=== PATIENT | female | born 1950 | race Caucasian/White ===

== ENCOUNTER 2017-10-22 12:23 | Day surgery (SDC) | payer MEDICARE, OTHER ==
[~2017-10-22 12:23] MED LIST: ATOR20 PO; Aspir 8181 MG PO; CHOL10002 PO; COD LIVER OIL1 EACH PO; DESO.05TL; FISH OIL 1,0001 EAC1 PO; FURO40 PO; GLUCOSAMINE CH1 EAC3 PO; LIRA0.6P SC; LOSARTAN-HCTZ1 EACH PO; METO50 PO; Metformin HCl1000 MG PO; POTCHL10ER PO; TOUJEO SOL300 UNIT/1 SC; WARF4 PO; WARF5 PO
[2018-02-10] MEDS ORDERED: Augmentin 875-1 EACH PO (14:41)
== END 2017-10-22 13:48 | disposition home or self-care (01) ==
LOC: WOUND 12:23
DX: Z48.00 Encounter for change or removal of nonsurgical wound dressing (principal); L02.215 Cutaneous abscess of perineum; E11.622 Type 2 diabetes mellitus with other skin ulcer; L98.411 Non-pressure chronic ulcer of buttock limited to breakdown of skin; E66.9 Obesity, unspecified
CPT/HCPCS: G0463

== ENCOUNTER 2017-10-29 12:30 | Day surgery (SDC) | payer MEDICARE, OTHER ==
[2018-02-10] MEDS ORDERED: Augmentin 875-1 EACH PO (14:41)
== END 2017-10-29 15:56 | disposition home or self-care (01) ==
LOC: WOUND 12:30
PROC: 0JB90ZZ Excision of Buttock Subcutaneous Tissue and Fascia, Open Approach (ICD-10-PCS; principal; 2017-10-29)
DX: Z48.00 Encounter for change or removal of nonsurgical wound dressing (principal); E11.622 Type 2 diabetes mellitus with other skin ulcer; L02.215 Cutaneous abscess of perineum; E66.9 Obesity, unspecified; L98.412 Non-pressure chronic ulcer of buttock with fat layer exposed
CPT/HCPCS: G0463

== ENCOUNTER 2017-11-05 12:30 | Day surgery (SDC) | payer MEDICARE, OTHER ==
[2018-02-10] MEDS ORDERED: Augmentin 875-1 EACH PO (14:41)
== END 2017-11-05 22:53 | disposition home or self-care (01) ==
LOC: WOUND 12:30
DX: Z48.00 Encounter for change or removal of nonsurgical wound dressing (principal); L02.215 Cutaneous abscess of perineum; E11.622 Type 2 diabetes mellitus with other skin ulcer; E66.9 Obesity, unspecified
CPT/HCPCS: G0463

== ENCOUNTER 2017-11-12 12:30 | Day surgery (SDC) | payer MEDICARE, OTHER ==
[2018-02-10] MEDS ORDERED: Augmentin 875-1 EACH PO (14:41)
== END 2017-11-12 14:21 | disposition home or self-care (01) ==
LOC: WOUND 12:30
DX: Z48.00 Encounter for change or removal of nonsurgical wound dressing (principal); E11.622 Type 2 diabetes mellitus with other skin ulcer; L02.215 Cutaneous abscess of perineum; E66.9 Obesity, unspecified
CPT/HCPCS: G0463

== ENCOUNTER 2017-11-19 09:58 | Day surgery (SDC) | payer MEDICARE, OTHER ==
[2018-02-10] MEDS ORDERED: Augmentin 875-1 EACH PO (14:41)
== END 2017-11-19 23:03 | disposition home or self-care (01) ==
LOC: WOUND 09:58
DX: Z48.00 Encounter for change or removal of nonsurgical wound dressing (principal); E11.622 Type 2 diabetes mellitus with other skin ulcer; L02.215 Cutaneous abscess of perineum
CPT/HCPCS: G0463

== ENCOUNTER 2017-11-26 01:01 | Day surgery (SDC) | payer MEDICARE, OTHER ==
[2018-02-10] MEDS ORDERED: Augmentin 875-1 EACH PO (14:41)
== END 2017-11-26 13:19 | disposition home or self-care (01) ==
LOC: WOUND 01:01
DX: Z48.00 Encounter for change or removal of nonsurgical wound dressing (principal); E11.621 Type 2 diabetes mellitus with foot ulcer; E11.69 Type 2 diabetes mellitus with other specified complication; L02.215 Cutaneous abscess of perineum
CPT/HCPCS: G0463

== ENCOUNTER 2017-12-06 00:37 | Day surgery (SDC) | payer MEDICARE, OTHER | END 2017-12-06 22:00 | disposition home or self-care (01) | LOC: WOUND 00:37 | DX: Z48.00 Encounter for change or removal of nonsurgical wound dressing (principal); E11.622 Type 2 diabetes mellitus with other skin ulcer; L02.215 Cutaneous abscess of perineum | CPT/HCPCS: G0463 ==

== ENCOUNTER 2017-12-10 00:26 | Day surgery (SDC) | payer MEDICARE, OTHER ==
[2018-02-10] MEDS ORDERED: Augmentin 875-1 EACH PO (14:41)
== END 2017-12-10 14:16 | disposition home or self-care (01) ==
LOC: WOUND 00:26
DX: Z48.00 Encounter for change or removal of nonsurgical wound dressing (principal); E11.622 Type 2 diabetes mellitus with other skin ulcer; L02.215 Cutaneous abscess of perineum; E66.9 Obesity, unspecified
CPT/HCPCS: G0463

== ENCOUNTER 2017-12-17 10:59 | Day surgery (SDC) | payer MEDICARE, OTHER ==
[2018-02-10] MEDS ORDERED: Augmentin 875-1 EACH PO (14:41)
== END 2017-12-17 22:53 | disposition home or self-care (01) ==
LOC: WOUND 10:59
DX: L02.215 Cutaneous abscess of perineum (principal); E11.622 Type 2 diabetes mellitus with other skin ulcer; Z79.01 Long term (current) use of anticoagulants; E66.9 Obesity, unspecified
CPT/HCPCS: G0463

== ENCOUNTER 2017-12-24 12:28 | Day surgery (SDC) | payer MEDICARE, OTHER ==
[2018-02-10] MEDS ORDERED: Augmentin 875-1 EACH PO (14:41)
== END 2017-12-24 23:19 | disposition home or self-care (01) ==
LOC: WOUND 12:28
DX: L02.215 Cutaneous abscess of perineum (principal); E11.622 Type 2 diabetes mellitus with other skin ulcer; Z79.4 Long term (current) use of insulin; Z79.01 Long term (current) use of anticoagulants
CPT/HCPCS: G0463

== ENCOUNTER 2017-12-31 12:23 | Day surgery (SDC) | payer MEDICARE, OTHER ==
[2018-02-10] MEDS ORDERED: Augmentin 875-1 EACH PO (14:41)
== END 2017-12-31 13:18 | disposition home or self-care (01) ==
LOC: WOUND 12:23
DX: L02.215 Cutaneous abscess of perineum (principal); E11.622 Type 2 diabetes mellitus with other skin ulcer; Z79.4 Long term (current) use of insulin; Z79.01 Long term (current) use of anticoagulants
CPT/HCPCS: G0463

== ENCOUNTER 2018-01-07 12:30 | Day surgery (SDC) | payer MEDICARE, OTHER ==
[2018-02-10] MEDS ORDERED: Augmentin 875-1 EACH PO (14:41)
== END 2018-01-07 14:48 | disposition home or self-care (01) ==
LOC: WOUND 12:30
DX: Z48.00 Encounter for change or removal of nonsurgical wound dressing (principal); E11.622 Type 2 diabetes mellitus with other skin ulcer; E66.9 Obesity, unspecified; L02.215 Cutaneous abscess of perineum; Z79.4 Long term (current) use of insulin; Z79.01 Long term (current) use of anticoagulants
CPT/HCPCS: G0463

== ENCOUNTER 2018-01-14 12:30 | Day surgery (SDC) | payer MEDICARE, OTHER ==
[2018-02-10] MEDS ORDERED: Augmentin 875-1 EACH PO (14:41)
== END 2018-01-14 22:38 | disposition home or self-care (01) ==
LOC: WOUND 12:30
PROC: 0HB9XZZ Excision of Perineum Skin, External Approach (ICD-10-PCS; principal; 2018-01-14)
DX: Z48.00 Encounter for change or removal of nonsurgical wound dressing (principal); E11.622 Type 2 diabetes mellitus with other skin ulcer; L02.215 Cutaneous abscess of perineum; E66.9 Obesity, unspecified; Z79.01 Long term (current) use of anticoagulants
CPT/HCPCS: G0463

== ENCOUNTER 2018-01-21 12:30 | Day surgery (SDC) | payer MEDICARE, OTHER | END 2018-01-21 15:10 | disposition home or self-care (01) | LOC: WOUND 12:30 | DX: Z48.00 Encounter for change or removal of nonsurgical wound dressing (principal); E11.622 Type 2 diabetes mellitus with other skin ulcer; E11.69 Type 2 diabetes mellitus with other specified complication; L02.215 Cutaneous abscess of perineum; Z79.4 Long term (current) use of insulin | CPT/HCPCS: 87070; 87205; G0463 ==

== ENCOUNTER 2018-01-28 00:33 | Day surgery (SDC) | payer MEDICARE, OTHER | END 2018-01-28 13:13 | disposition home or self-care (01) | LOC: WOUND 00:33 | PROC: 0HB9XZZ Excision of Perineum Skin, External Approach (ICD-10-PCS; principal; 2018-01-28) | DX: L02.215 Cutaneous abscess of perineum (principal); K61.0 Anal abscess; Z79.4 Long term (current) use of insulin; Z79.01 Long term (current) use of anticoagulants; E66.9 Obesity, unspecified; E11.622 Type 2 diabetes mellitus with other skin ulcer | CPT/HCPCS: G0463 ==

== ENCOUNTER 2018-02-04 12:22 | Day surgery (SDC) | payer MEDICARE, OTHER | END 2018-02-04 13:26 | disposition home or self-care (01) | LOC: WOUND 12:22 | DX: L02.215 Cutaneous abscess of perineum (principal); E11.622 Type 2 diabetes mellitus with other skin ulcer | CPT/HCPCS: G0463 ==

== ENCOUNTER → 2018-02-10 | Outpatient (CLI) | payer MEDICARE, OTHER | LOC: LAB 15:06 → LAB SHORT 15:06 | DX: E11.40 Type 2 diabetes mellitus with diabetic neuropathy, unspecified (principal); M86.179 Other acute osteomyelitis, unspecified ankle and foot | CPT/HCPCS: 87070; 87205 ==

== ENCOUNTER 2018-02-11 12:35 | Day surgery (SDC) | payer MEDICARE, OTHER | END 2018-02-11 22:57 | disposition home or self-care (01) | LOC: WOUND 12:35 | PROC: 0H59XZZ Destruction of Perineum Skin, External Approach (ICD-10-PCS; principal; 2018-02-11) | DX: L02.215 Cutaneous abscess of perineum (principal); E11.622 Type 2 diabetes mellitus with other skin ulcer | CPT/HCPCS: G0463 ==

== ENCOUNTER 2018-02-25 00:35 | Day surgery (SDC) | payer MEDICARE, OTHER | END 2018-02-25 22:46 | disposition home or self-care (01) | LOC: WOUND 00:35 | PROC: 0H59XZZ Destruction of Perineum Skin, External Approach (ICD-10-PCS; principal; 2018-02-25) | DX: L02.215 Cutaneous abscess of perineum (principal); E11.622 Type 2 diabetes mellitus with other skin ulcer; Z79.4 Long term (current) use of insulin | CPT/HCPCS: G0463 ==

== ENCOUNTER 2018-03-10 11:31 | Inpatient (IN) | payer MEDICARE, OTHER ==
[~2018-03-10] VITALS: Ht 167.6 cm; Wt 112.0 kg
[~2018-03-10 11:31] MED LIST changes: +Augmentin 875-1 EACH PO
[2018-03-10 13:23] LABS: BASOPHILS ABSOLUTE AUTO 0.03 K/mm3 (0.00-0.23); BASOPHILS PERCENT AUTO 1 % (0-2); EOSINOPHILS ABSOLUTE AUTO 0.16 K/mm3 (0.00-0.68); EOSINOPHILS PERCENT AUTO 3 % (0-6); Hematocrit 32.1 % (33.0-51.0); Hemoglobin 10.1 g/dL (11.5-16.0); IMMATURE GRAN ABSOLUTE AUTO 0.03 K/mm3 (0.00-0.10); IMMATURE GRAN PERCENT AUTO 1 % (0-1); LYMPHOCYTES ABSOLUTE AUTO 0.97 K/mm3 (0.84-5.20); LYMPHOCYTES PERCENT AUTO 15 % (21-46); MONOCYTES ABSOLUTE AUTO 0.62 K/mm3 (0.16-1.47); MONOCYTES PERCENT AUTO 10 % (4-13); Mean Corpuscular HGB 30.4 pg (26.0-34.0); Mean Corpuscular HGB Conc 31.5 g/dL (31.5-36.5); Mean Corpuscular Volume 97 fL (80-100); Mean Platelet Volume 8.8 fL (9.1-12.4); NEUTROPHILS ABSOLUTE AUTO 4.48 K/mm3 (1.96-9.15); NEUTROPHILS PERCENT AUTO 71 % (41-73); Platelet Count 322 K/mm3 (150-400); RDW Coefficient Variation 13.2 % (11.7-14.2); RDW Standard Deviation 46.7 fL (35.1-46.3); Red Blood Cell Count 3.32 M/mm3 (3.80-5.20); White Blood Cell Count 6.29 K/mm3 (4.00-11.30)
[2018-03-10 13:39] LABS: International Normalized Ratio 1.21; Prothrombin Time Results 12.7 Sec (9.7-11.5)
[2018-03-10 13:46] LABS: Alanine Aminotransfer (ALT/SGP 29 U/L (12-78); Albumin/Globulin Ratio 0.7 (0.8-1.8); Alk Phos 111 U/L (50-136); Anion Gap 9 mmol/L (6-16); Aspartate Aminotrans (AST/SGOT 18 U/L (12-37); Bilirubin, Total 0.3 mg/dL (0.1-1.0); Blood Urea Nitrogen 67 mg/dL (8-24); Bun/Creatinine Ratio 76.6 (12.0-20.0); CO2, Blood 21 mmol/L (21-32); Calcium, Blood 9.3 mg/dL (8.5-10.1); Chloride, Blood 107 mmol/L (98-108); Creatinine, Blood 0.88 mg/dL (0.40-1.00); Globulin, Blood 4.5 g/dL (2.2-4.0); Glomerular Filtration Rate >60 (60-); Glucose, Blood 129 mg/dL (70-99); Potassium, Blood 5.2 mmol/L (3.5-5.5); Sodium, Blood 137 mmol/L (136-145); Total Protein, Blood 7.5 g/dL (6.4-8.2)
[2018-03-10] MEDS ORDERED: ACET500ER PO (14:37)
[2018-03-10] MEDS ORDERED: IBUPROFEN200 MG PO (14:39)
[2018-03-10] MEDS ORDERED: DOCU100 PO (14:42)
[2018-03-10] MEDS ORDERED: Hair, Skin & N1 EACH PO (14:49)
[2018-03-10] MEDS ORDERED: ASCO500 PO (14:49)
[2018-03-10] MEDS ORDERED: WARF7.5 PO (14:51)
[2018-03-10] MEDS ORDERED: CETI5 PO (14:52)
[2018-03-10] MEDS ORDERED: Novolog Fl100 UNIT/1 SC ×2 (14:53→14:54)
[2018-03-10] MEDS ORDERED: INSULANPEN SC (14:54)
[2018-03-10] MEDS ORDERED: OXYC5 PO (14:55)
[2018-03-10] MEDS ORDERED: [UNRECOGNIZED DRUG - CODE] PO (16:08)
[2018-03-10] MEDS ORDERED: [UNRECOGNIZED DRUG - CODE] PO (16:09)
[2018-03-11 05:15] LABS: Hematocrit 30.4 % (33.0-51.0); Hemoglobin 9.5 g/dL (11.5-16.0); Mean Corpuscular HGB 29.7 pg (26.0-34.0); Mean Corpuscular HGB Conc 31.3 g/dL (31.5-36.5); Mean Corpuscular Volume 95 fL (80-100); Platelet Count 328 K/mm3 (150-400); RDW Coefficient Variation 13.2 % (11.7-14.2); RDW Standard Deviation 45.3 fL (35.1-46.3); White Blood Cell Count 6.01 K/mm3 (4.00-11.30)
[2018-03-11 05:24] LABS: International Normalized Ratio 1.27; Prothrombin Time Results 13.3 Sec (9.7-11.5)
[2018-03-11 05:33] LABS: Anion Gap 7 mmol/L (6-16); Blood Urea Nitrogen 51 mg/dL (8-24); Bun/Creatinine Ratio 59.8 (12.0-20.0); CO2, Blood 23 mmol/L (21-32); Calcium, Blood 9.2 mg/dL (8.5-10.1); Chloride, Blood 109 mmol/L (98-108); Creatinine, Blood 0.85 mg/dL (0.40-1.00); Glomerular Filtration Rate >60 (60-); Glucose, Blood 116 mg/dL (70-99); Potassium, Blood 4.7 mmol/L (3.5-5.5); Sodium, Blood 139 mmol/L (136-145)
[2018-03-11 17:12] LABS: Vancomycin, Trough 15.4 ug/mL (5.0-10.0)
[2018-03-12 05:16] LABS: BASOPHILS ABSOLUTE AUTO 0.01 K/mm3 (0.00-0.23); BASOPHILS PERCENT AUTO 0 % (0-2); EOSINOPHILS ABSOLUTE AUTO 0.14 K/mm3 (0.00-0.68); EOSINOPHILS PERCENT AUTO 4 % (0-6); Hematocrit 30.4 % (33.0-51.0); Hemoglobin 9.5 g/dL (11.5-16.0); IMMATURE GRAN ABSOLUTE AUTO 0.01 K/mm3 (0.00-0.10); IMMATURE GRAN PERCENT AUTO 0 % (0-1); LYMPHOCYTES ABSOLUTE AUTO 1.04 K/mm3 (0.84-5.20); LYMPHOCYTES PERCENT AUTO 29 % (21-46); MONOCYTES ABSOLUTE AUTO 0.37 K/mm3 (0.16-1.47); MONOCYTES PERCENT AUTO 10 % (4-13); Mean Corpuscular HGB 29.3 pg (26.0-34.0); Mean Corpuscular HGB Conc 31.3 g/dL (31.5-36.5); Mean Corpuscular Volume 94 fL (80-100); NEUTROPHILS ABSOLUTE AUTO 2.01 K/mm3 (1.96-9.15); NEUTROPHILS PERCENT AUTO 56 % (41-73); Platelet Count 305 K/mm3 (150-400); RDW Coefficient Variation 13.1 % (11.7-14.2); RDW Standard Deviation 44.9 fL (35.1-46.3); Red Blood Cell Count 3.24 M/mm3 (3.80-5.20); White Blood Cell Count 3.58 K/mm3 (4.00-11.30)
[2018-03-12 05:31] LABS: Anion Gap 10 mmol/L (6-16); Blood Urea Nitrogen 41 mg/dL (8-24); CO2, Blood 23 mmol/L (21-32); Calcium, Blood 9.1 mg/dL (8.5-10.1); Chloride, Blood 108 mmol/L (98-108); Creatinine, Blood 0.79 mg/dL (0.40-1.00); Glomerular Filtration Rate >60 (60-); Glucose, Blood 98 mg/dL (70-99); Potassium, Blood 4.5 mmol/L (3.5-5.5); Sodium, Blood 141 mmol/L (136-145)
[2018-03-13 04:59] LABS: BASOPHILS ABSOLUTE AUTO 0.02 K/mm3 (0.00-0.23); BASOPHILS PERCENT AUTO 0 % (0-2); EOSINOPHILS ABSOLUTE AUTO 0.13 K/mm3 (0.00-0.68); EOSINOPHILS PERCENT AUTO 3 % (0-6); Hematocrit 29.1 % (33.0-51.0); Hemoglobin 9.2 g/dL (11.5-16.0); IMMATURE GRAN ABSOLUTE AUTO 0.02 K/mm3 (0.00-0.10); IMMATURE GRAN PERCENT AUTO 0 % (0-1); LYMPHOCYTES ABSOLUTE AUTO 1.12 K/mm3 (0.84-5.20); LYMPHOCYTES PERCENT AUTO 22 % (21-46); MONOCYTES PERCENT AUTO 12 % (4-13); Mean Corpuscular HGB Conc 31.6 g/dL (31.5-36.5); Mean Corpuscular Volume 95 fL (80-100); Mean Platelet Volume 8.8 fL (9.1-12.4); NEUTROPHILS ABSOLUTE AUTO 3.13 K/mm3 (1.96-9.15); NEUTROPHILS PERCENT AUTO 62 % (41-73); Platelet Count 287 K/mm3 (150-400); RDW Coefficient Variation 13.1 % (11.7-14.2); RDW Standard Deviation 45.3 fL (35.1-46.3); Red Blood Cell Count 3.07 M/mm3 (3.80-5.20); White Blood Cell Count 5.02 K/mm3 (4.00-11.30)
[2018-03-13 05:22] LABS: Anion Gap 8 mmol/L (6-16); Blood Urea Nitrogen 31 mg/dL (8-24); Bun/Creatinine Ratio 38.8 (12.0-20.0); CO2, Blood 24 mmol/L (21-32); Chloride, Blood 109 mmol/L (98-108); Glomerular Filtration Rate >60 (60-); Glucose, Blood 93 mg/dL (70-99); Potassium, Blood 4.5 mmol/L (3.5-5.5); Sodium, Blood 141 mmol/L (136-145)
[2018-03-16 16:54] LABS: International Normalized Ratio 1.16; Prothrombin Time Results 12.1 Sec (9.7-11.5)
[2018-03-17 05:34] LABS: International Normalized Ratio 1.13; Prothrombin Time Results 11.8 Sec (9.7-11.5)
[2018-03-18 06:26] LABS: BASOPHILS ABSOLUTE AUTO 0.03 K/mm3 (0.00-0.23); BASOPHILS PERCENT AUTO 1 % (0-2); EOSINOPHILS ABSOLUTE AUTO 0.11 K/mm3 (0.00-0.68); EOSINOPHILS PERCENT AUTO 2 % (0-6); Hematocrit 32.5 % (33.0-51.0); Hemoglobin 10.1 g/dL (11.5-16.0); IMMATURE GRAN ABSOLUTE AUTO 0.01 K/mm3 (0.00-0.10); IMMATURE GRAN PERCENT AUTO 0 % (0-1); LYMPHOCYTES ABSOLUTE AUTO 1.13 K/mm3 (0.84-5.20); LYMPHOCYTES PERCENT AUTO 23 % (21-46); MONOCYTES ABSOLUTE AUTO 0.48 K/mm3 (0.16-1.47); MONOCYTES PERCENT AUTO 10 % (4-13); Mean Corpuscular HGB 28.8 pg (26.0-34.0); Mean Corpuscular HGB Conc 31.1 g/dL (31.5-36.5); Mean Corpuscular Volume 93 fL (80-100); Mean Platelet Volume 8.7 fL (9.1-12.4); NEUTROPHILS ABSOLUTE AUTO 3.19 K/mm3 (1.96-9.15); NEUTROPHILS PERCENT AUTO 65 % (41-73); Platelet Count 321 K/mm3 (150-400); RDW Coefficient Variation 12.8 % (11.7-14.2); RDW Standard Deviation 43.2 fL (35.1-46.3); Red Blood Cell Count 3.51 M/mm3 (3.80-5.20); White Blood Cell Count 4.95 K/mm3 (4.00-11.30)
[2018-03-18 06:42] LABS: International Normalized Ratio 1.15
[2018-03-18 06:46] LABS: Alanine Aminotransfer (ALT/SGP 15 U/L (12-78); Albumin, Blood 2.9 g/dL (3.4-5.0); Albumin/Globulin Ratio 0.7 (0.8-1.8); Alk Phos 87 U/L (50-136); Anion Gap 7 mmol/L (6-16); Aspartate Aminotrans (AST/SGOT 10 U/L (12-37); Bilirubin, Total 0.4 mg/dL (0.1-1.0); Blood Urea Nitrogen 39 mg/dL (8-24); Bun/Creatinine Ratio 46.2 (12.0-20.0); CO2, Blood 25 mmol/L (21-32); Calcium, Blood 9.4 mg/dL (8.5-10.1); Chloride, Blood 107 mmol/L (98-108); Creatinine, Blood 0.85 mg/dL (0.40-1.00); Globulin, Blood 4.3 g/dL (2.2-4.0); Glomerular Filtration Rate >60 (60-); Glucose, Blood 88 mg/dL (70-99); Potassium, Blood 4.1 mmol/L (3.5-5.5); Sodium, Blood 139 mmol/L (136-145); Total Protein, Blood 7.2 g/dL (6.4-8.2)
[2018-03-18] MEDS ORDERED: ACET500 PO (14:31)
[2018-03-18] MEDS ORDERED: LOSA50 PO (14:39)
[2018-03-18] MEDS ORDERED: LEVFLO500 PO (14:41)
== END 2018-03-18 18:30 | disposition home or self-care (01) | DRG 616 ==
LOC: ER 11:31 → SURS 11:32 → ER 14:10 → SURS 14:35
PROVIDERS: Emergency Medicine; Family Medicine; Internal Medicine; Podiatrist; Student in an Organized Health Care Education/Training Program
PROC: 0QBP0ZZ Excision of Left Metatarsal, Open Approach (ICD-10-PCS; 2018-03-12)
PROC: 0Y6Q0Z0 Detachment at Left 1st Toe, Complete, Open Approach (ICD-10-PCS; principal; 2018-03-12 15:00)
DX: E11.69 Type 2 diabetes mellitus with other specified complication (principal); L89.893 Pressure ulcer of other site, stage 3; M86.172 Other acute osteomyelitis, left ankle and foot; S92.312A Displaced fracture of first metatarsal bone, left foot, initial encounter for closed fracture; Z79.4 Long term (current) use of insulin; I48.91 Unspecified atrial fibrillation; G47.33 Obstructive sleep apnea (adult) (pediatric); B95.2 Enterococcus as the cause of diseases classified elsewhere; B96.5 Pseudomonas (aeruginosa) (mallei) (pseudomallei) as the cause of diseases classified elsewhere; E11.40 Type 2 diabetes mellitus with diabetic neuropathy, unspecified; I48.2 Chronic atrial fibrillation; E78.5 Hyperlipidemia, unspecified; L97.524 Non-pressure chronic ulcer of other part of left foot with necrosis of bone
CPT/HCPCS: 36415; 73630; 80048; 80053; 80202; 82947; 83605; 85025; 85027; 85610; 85651; 86140; 87040; 87070; 87071; 87075; 87077; 87186; 87205; 88305; 88311; 93005; 93010; 93922; 94660; 94762; 96365; 97116; 97161; 97164; 97530; 99285; G8978; G8979; G8980; J0295; J1650; J1815; J1940; J1956; J2250; J2370; J2405; J2543; J3010; J3370; J7030; J7050; J7120

== ENCOUNTER 2018-03-20 09:15 | Day surgery (SDC) | payer MEDICARE, OTHER ==
[~2018-03-20 09:15] MED LIST changes: +ACET500 PO; +ACET500ER PO; +ASCO500 PO; +CETI5 PO; +DOCU100 PO; +Hair, Skin & N1 EACH PO; +IBUPROFEN200 MG PO; +INSULANPEN SC; +LEVFLO500 PO; +LOSA50 PO; +Novolog Fl100 UNIT/1 SC; +OXYC5 PO; +WARF7.5 PO; +[UNRECOGNIZED DRUG - CODE] PO; +[UNRECOGNIZED DRUG - CODE] PO
== END 2018-03-20 10:27 | disposition home or self-care (01) ==
LOC: WOUND
DX: Z48.00 Encounter for change or removal of nonsurgical wound dressing (principal); L02.215 Cutaneous abscess of perineum; E11.622 Type 2 diabetes mellitus with other skin ulcer; Z79.4 Long term (current) use of insulin
CPT/HCPCS: G0463

== ENCOUNTER 2018-03-26 12:29 | Day surgery (SDC) | payer MEDICARE, OTHER | END 2018-03-26 22:53 | disposition home or self-care (01) | LOC: WOUND 12:29 | DX: Z48.00 Encounter for change or removal of nonsurgical wound dressing (principal); L02.215 Cutaneous abscess of perineum; E11.622 Type 2 diabetes mellitus with other skin ulcer; Z79.4 Long term (current) use of insulin | CPT/HCPCS: G0463 ==

== ENCOUNTER 2018-04-09 00:15 | Day surgery (SDC) | payer MEDICARE, OTHER | END 2018-04-09 23:24 | disposition home or self-care (01) | LOC: WOUND 00:15 | DX: L02.215 Cutaneous abscess of perineum (principal); E11.622 Type 2 diabetes mellitus with other skin ulcer; Z79.4 Long term (current) use of insulin | CPT/HCPCS: G0463 ==

== ENCOUNTER 2018-04-16 11:15 | Day surgery (SDC) | payer MEDICARE, OTHER | END 2018-04-16 12:21 | disposition home or self-care (01) | LOC: WOUND 11:15 | DX: Z48.00 Encounter for change or removal of nonsurgical wound dressing (principal); L02.215 Cutaneous abscess of perineum; E11.622 Type 2 diabetes mellitus with other skin ulcer | CPT/HCPCS: G0463 ==

== ENCOUNTER 2018-04-22 | Day surgery (SDC) | payer MEDICARE, OTHER | END 2018-04-22 16:26 | disposition home or self-care (01) | LOC: WOUND | DX: Z48.01 Encounter for change or removal of surgical wound dressing (principal); L02.215 Cutaneous abscess of perineum; E11.622 Type 2 diabetes mellitus with other skin ulcer; Z79.4 Long term (current) use of insulin | CPT/HCPCS: G0463 ==

== ENCOUNTER 2018-05-02 11:00 | Day surgery (SDC) | payer MEDICARE, OTHER | END 2018-05-02 12:50 | disposition home or self-care (01) | LOC: WOUND 11:00 | DX: E11.622 Type 2 diabetes mellitus with other skin ulcer (principal); L98.492 Non-pressure chronic ulcer of skin of other sites with fat layer exposed; L02.215 Cutaneous abscess of perineum | CPT/HCPCS: G0463 ==

== ENCOUNTER 2018-05-30 00:12 | Day surgery (SDC) | payer MEDICARE, OTHER | END 2018-05-30 11:45 | disposition home or self-care (01) | LOC: ATC 00:12 | DX: L02.215 Cutaneous abscess of perineum (principal); E11.622 Type 2 diabetes mellitus with other skin ulcer; Z79.4 Long term (current) use of insulin | CPT/HCPCS: 99211 ==

== ENCOUNTER 2019-07-07 18:23 | Observation (INO) | payer MEDICARE, OTHER ==
[~2019-07-07] VITALS: Ht 167.6 cm; Wt 117.0 kg
[~2019-07-07 18:23] MED LIST changes: -CHOL10002 PO; -COD LIVER OIL1 EACH PO; +Cod Liver Oil1 EAC2 PO; -Hair, Skin & N1 EACH PO; +NOVOLOG FL100 UNIT/1 SC; +THERA1 EACH PO; +VITAMIN D31000 UNI2 PO
[2019-07-07 19:45] LABS: Source, Urine Clean Catch
[2019-07-07 19:55] LABS: BASOPHILS ABSOLUTE AUTO 0.02 K/mm3 (0.00-0.23); BASOPHILS PERCENT AUTO 0 % (0-2); EOSINOPHILS ABSOLUTE AUTO 0.11 K/mm3 (0.00-0.68); EOSINOPHILS PERCENT AUTO 2 % (0-6); Hematocrit 40.6 % (33.0-51.0); Hemoglobin 12.9 g/dL (11.5-16.0); IMMATURE GRAN ABSOLUTE AUTO 0.02 K/mm3 (0.00-0.10); IMMATURE GRAN PERCENT AUTO 0 % (0-1); LYMPHOCYTES ABSOLUTE AUTO 0.94 K/mm3 (0.84-5.20); LYMPHOCYTES PERCENT AUTO 15 % (21-46); MONOCYTES ABSOLUTE AUTO 0.53 K/mm3 (0.16-1.47); MONOCYTES PERCENT AUTO 8 % (4-13); Mean Corpuscular HGB Conc 31.8 g/dL (31.5-36.5); Mean Corpuscular Volume 101 fL (80-100); Mean Platelet Volume 9.7 fL (9.1-12.4); NEUTROPHILS PERCENT AUTO 75 % (41-73); Platelet Count 230 K/mm3 (150-400); RDW Coefficient Variation 12.8 % (11.7-14.2); Red Blood Cell Count 4.03 M/mm3 (3.80-5.20); White Blood Cell Count 6.42 K/mm3 (4.00-11.30)
[2019-07-07 20:01] LABS: Bilirubin, Urine Neg (Neg); Blood, Urine 2+ (Neg); Glucose Qualitative, Urine Neg (Neg); Ketones, Urine Neg (Neg); Leukocyte Esterase, Urine Neg (Neg); Nitrite, Urine Neg (Neg); Protein, Urine 3+ (Neg); Urobilinogen, Urine NORM (Normal)
[2019-07-07 20:11] LABS: International Normalized Ratio 3.35; Prothrombin Time Results 31.8 Sec (9.7-11.5)
[2019-07-07 20:15] LABS: Appearance, Urine Clear (Clear); Color, Urine Yellow (P-Yellow)
[2019-07-07 20:16] LABS: Bacteria Not Seen /hpf; Squamous Epithelial Cells Not Seen /hpf (Few); White Blood Cells, Urine Not Seen /hpf (0-5)
[2019-07-07 20:39] LABS: Alanine Aminotransfer (ALT/SGP 33 U/L (12-78); Albumin, Blood 3.7 g/dL (3.4-5.0); Alk Phos 99 U/L (50-136); Anion Gap 3 mmol/L (6-16); Aspartate Aminotrans (AST/SGOT 32 U/L (12-37); Bilirubin, Total 0.5 mg/dL (0.1-1.0); Blood Urea Nitrogen 64 mg/dL (8-24); Bun/Creatinine Ratio 79.1 (12.0-20.0); CO2, Blood 25 mmol/L (21-32); Calcium, Blood 9.9 mg/dL (8.5-10.1); Chloride, Blood 107 mmol/L (98-108); Creatinine, Blood 0.81 mg/dL (0.40-1.00); Globulin, Blood 3.7 g/dL (2.2-4.0); Glomerular Filtration Rate >60 (60-); Glucose, Blood 131 mg/dL (70-99); Potassium, Blood 4.7 mmol/L (3.5-5.5); Sodium, Blood 135 mmol/L (136-145); Total Protein, Blood 7.4 g/dL (6.4-8.2); Troponin I 0.083 ng/mL (0.000-0.040)
[2019-07-07] MEDS ORDERED: TRULICITY0.75 MG/0. SC (21:10)
[2019-07-07] MEDS ORDERED: Secura Protecti50 GM TOP (21:11)
[2019-07-07] MEDS ORDERED: A AND D OINTM42.5 GM TOP (21:11)
[2019-07-07] MEDS ORDERED: Triamcinolone A15 G3 TOP (21:12)
[2019-07-07] MEDS ORDERED: Florastor250 MG PO (21:12)
[2019-07-08 02:03] LABS: BASOPHILS ABSOLUTE AUTO 0.02 K/mm3 (0.00-0.23); BASOPHILS PERCENT AUTO 0 % (0-2); EOSINOPHILS ABSOLUTE AUTO 0.11 K/mm3 (0.00-0.68); EOSINOPHILS PERCENT AUTO 2 % (0-6); Hematocrit 37.7 % (33.0-51.0); Hemoglobin 12.3 g/dL (11.5-16.0); IMMATURE GRAN ABSOLUTE AUTO 0.02 K/mm3 (0.00-0.10); IMMATURE GRAN PERCENT AUTO 0 % (0-1); LYMPHOCYTES ABSOLUTE AUTO 1.43 K/mm3 (0.84-5.20); LYMPHOCYTES PERCENT AUTO 21 % (21-46); MONOCYTES ABSOLUTE AUTO 0.62 K/mm3 (0.16-1.47); MONOCYTES PERCENT AUTO 9 % (4-13); Mean Corpuscular HGB 32.4 pg (26.0-34.0); Mean Corpuscular HGB Conc 32.6 g/dL (31.5-36.5); Mean Corpuscular Volume 99 fL (80-100); Mean Platelet Volume 9.4 fL (9.1-12.4); NEUTROPHILS ABSOLUTE AUTO 4.49 K/mm3 (1.96-9.15); NEUTROPHILS PERCENT AUTO 67 % (41-73); Platelet Count 230 K/mm3 (150-400); RDW Coefficient Variation 12.8 % (11.7-14.2); RDW Standard Deviation 46.5 fL (35.1-46.3); White Blood Cell Count 6.69 K/mm3 (4.00-11.30)
[2019-07-08 02:17] LABS: International Normalized Ratio 2.74
[2019-07-08 02:22] LABS: Anion Gap 6 mmol/L (6-16); Blood Urea Nitrogen 53 mg/dL (8-24); Bun/Creatinine Ratio 75.8 (12.0-20.0); CO2, Blood 26 mmol/L (21-32); Calcium, Blood 9.4 mg/dL (8.5-10.1); Chloride, Blood 108 mmol/L (98-108); Glomerular Filtration Rate >60 (60-); Glucose, Blood 114 mg/dL (70-99); Potassium, Blood 4.2 mmol/L (3.5-5.5); Sodium, Blood 140 mmol/L (136-145)
[2019-07-08 02:28] LABS: Prothrombin Time Results 26.5 Sec (9.7-11.5)
--- NOTE | 2019-07-08 03:16 | NUR ---
tROPONIN UP FROM .08 ON ADMISSION TO .26 NOW . dR LUND NOTIFIED AND NO FURTHER ORDER RECIeved. Troponin aleady ordered for 0800 in am. Bp was 191/102. Pt was given her pm meds and blood pressure at 0200 166/72.
--- NOTE | 2019-07-08 04:12 | NUR ---
Shift summary: Pt admitted at midnight last pm. Admission completed. No s/s cva noted. Pt able to ambulate to BR with walker with minimal assist. Pt states she is back to her baseline. Pt on telemetry- AFIB in the 50's. Troponin elevated 0.26 . MD notified and no further orders given. Bp 191/102 on admission but she had not had her pm blood pressure meds. PM medications given. BP two hours later was 166/72
--- NOTE | 2019-07-08 11:06 | NUR ---
Echocadiogram completed.
[2019-07-08] MEDS ORDERED: METO50 PO (12:59)
--- NOTE | 2019-07-08 15:49 | NUR ---
1529 Patient discharged home in vehicle accompanied and driven by . Pt escorted to entrance by volunteer. IV removed. D/C paperwork reviewed with patient and copy provided. New RX faxed to [facility] per pt request. Pt's neuro status WNL for entire shift.
== END 2019-07-08 15:29 | disposition home or self-care (01) ==
LOC: ER 18:23 → MEDS 18:24 → ER 07-08 00:03 → MEDS 07-08 00:03
PROVIDERS: Emergency Medicine; Nurse Practitioner Acute Care; ADMIT Hospitalist
DX: G45.9 Transient cerebral ischemic attack, unspecified (principal); I63.9 Cerebral infarction, unspecified; E66.01 Morbid (severe) obesity due to excess calories; I48.2 Chronic atrial fibrillation; E11.40 Type 2 diabetes mellitus with diabetic neuropathy, unspecified; I11.0 Hypertensive heart disease with heart failure; I50.32 Chronic diastolic (congestive) heart failure; E78.5 Hyperlipidemia, unspecified; G47.33 Obstructive sleep apnea (adult) (pediatric); Z99.89 Dependence on other enabling machines and devices; Z79.4 Long term (current) use of insulin; Z79.82 Long term (current) use of aspirin; Z79.899 Other long term (current) drug therapy; Z79.01 Long term (current) use of anticoagulants; Z88.8 Allergy status to other drugs, medicaments and biological substances
CPT/HCPCS: 36415; 70450; 70496; 70498; 71046; 80048; 80053; 81001; 82947; 84484; 85025; 85610; 92610; 93005; 93010; 93306; 94660; 94762; 97161; 97165; 97530; 97535; 99285-25; G0378; Q9967

== ENCOUNTER 2020-12-03 21:39 | Inpatient (IN) | payer MEDICARE, OTHER ==
[~2020-12-03] VITALS: Ht 167.6 cm; Wt 118.4 kg
[~2020-12-03 21:39] MED LIST changes: +A AND D OINTM42.5 GM TOP; +AMLO5 PO; +BASAGLAR K100 UNIT/1 SC; +CLOP75 PO; +FERSU300 PO; -FISH OIL 1,0001 EAC1 PO; +Florastor250 MG PO; -LOSA50 PO; +LOSARTAN POTAS100 M1 PO; +MULVITA PO; -NOVOLOG FL100 UNIT/1 SC; +NOVOLOG FL100 UNIT/3 SC; +OMEGA-3 FISH O1 EAC6 PO; +OMEP20ER PO; +POTA20LUD PO; -POTCHL10ER PO; +Secura Protecti50 GM TOP; -THERA1 EACH PO; +TRULICITY0.75 MG/0. SC; +Triamcinolone A15 G3 TOP; +VITAMIN D31000 UNI1 PO; -VITAMIN D31000 UNI2 PO
[2020-12-03 22:11] LABS: BASOPHILS ABSOLUTE AUTO 0.03 K/mm3 (0.00-0.23); BASOPHILS PERCENT AUTO 1 % (0-2); EOSINOPHILS ABSOLUTE AUTO 0.07 K/mm3 (0.00-0.68); EOSINOPHILS PERCENT AUTO 1 % (0-6); Hematocrit 34.6 % (33.0-51.0); IMMATURE GRAN ABSOLUTE AUTO 0.02 K/mm3 (0.00-0.10); IMMATURE GRAN PERCENT AUTO 0 % (0-1); LYMPHOCYTES ABSOLUTE AUTO 0.53 K/mm3 (0.84-5.20); LYMPHOCYTES PERCENT AUTO 10 % (21-46); MONOCYTES ABSOLUTE AUTO 0.55 K/mm3 (0.16-1.47); MONOCYTES PERCENT AUTO 11 % (4-13); Mean Corpuscular HGB 28.6 pg (26.0-34.0); Mean Corpuscular HGB Conc 28.9 g/dL (31.5-36.5); Mean Corpuscular Volume 99 fL (80-100); Mean Platelet Volume 9.5 fL (9.1-12.4); NEUTROPHILS ABSOLUTE AUTO 3.99 K/mm3 (1.96-9.15); NEUTROPHILS PERCENT AUTO 77 % (41-73); Platelet Count 262 K/mm3 (150-400); RDW Coefficient Variation 17.5 % (11.7-14.2); RDW Standard Deviation 63.3 fL (35.1-46.3); White Blood Cell Count 5.19 K/mm3 (4.00-11.30)
[2020-12-03 22:25] LABS: Alanine Aminotransfer (ALT/SGP 40 U/L (12-78); Albumin, Blood 3.5 g/dL (3.4-5.0); Albumin/Globulin Ratio 0.9 (0.8-1.8); Alk Phos 113 U/L (50-136); Anion Gap 7 mmol/L (6-16); Aspartate Aminotrans (AST/SGOT 38 U/L (12-37); Bilirubin, Total 0.7 mg/dL (0.1-1.0); Blood Urea Nitrogen 33 mg/dL (8-24); Bun/Creatinine Ratio 39.1 (12.0-20.0); CO2, Blood 21 mmol/L (21-32); Calcium, Blood 8.9 mg/dL (8.5-10.1); Chloride, Blood 113 mmol/L (98-108); Creatinine, Blood 0.85 mg/dL (0.40-1.00); Globulin, Blood 3.8 g/dL (2.2-4.0); Glomerular Filtration Rate >60 (60-); Glucose, Blood 201 mg/dL (70-99); Potassium, Blood 4.8 mmol/L (3.5-5.5); Sodium, Blood 141 mmol/L (136-145); Total Protein, Blood 7.3 g/dL (6.4-8.2); Troponin I <0.015 ng/mL (0.000-0.040)
[2020-12-04 00:39] LABS: Influenza A, PCR NEGATIVE (NEGATIVE); Influenza B, PCR NEGATIVE (NEGATIVE); Resp Syncytial Virus, PCR NEGATIVE (NEGATIVE)
[2020-12-04 01:00] LABS: SARS-Cov-2 (COVID-19) PCR, MMC POSITIVE (NEGATIVE)
[2020-12-04 02:29] LABS: International Normalized Ratio 1.79; Prothrombin Time Results 18.5 Sec (9.7-11.5)
[2020-12-04 04:10] LABS: Hematocrit 32.9 % (33.0-51.0); Hemoglobin 9.6 g/dL (11.5-16.0); Mean Corpuscular HGB 28.8 pg (26.0-34.0); Mean Corpuscular HGB Conc 29.2 g/dL (31.5-36.5); Mean Corpuscular Volume 99 fL (80-100); Mean Platelet Volume 9.2 fL (9.1-12.4); Platelet Count 222 K/mm3 (150-400); RDW Coefficient Variation 17.2 % (11.7-14.2); RDW Standard Deviation 62.7 fL (35.1-46.3); Red Blood Cell Count 3.33 M/mm3 (3.80-5.20); White Blood Cell Count 3.41 K/mm3 (4.00-11.30)
[2020-12-04 04:30] LABS: Alanine Aminotransfer (ALT/SGP 37 U/L (12-78); Albumin, Blood 3.3 g/dL (3.4-5.0); Albumin/Globulin Ratio 0.9 (0.8-1.8); Alk Phos 108 U/L (50-136); Anion Gap 10 mmol/L (6-16); Aspartate Aminotrans (AST/SGOT 28 U/L (12-37); Bilirubin, Total 0.7 mg/dL (0.1-1.0); Blood Urea Nitrogen 34 mg/dL (8-24); Bun/Creatinine Ratio 36.1 (12.0-20.0); CO2, Blood 20 mmol/L (21-32); Chloride, Blood 113 mmol/L (98-108); Creatinine, Blood 0.94 mg/dL (0.40-1.00); Globulin, Blood 3.7 g/dL (2.2-4.0); Glomerular Filtration Rate >60 (60-); Glucose, Blood 228 mg/dL (70-99); Potassium, Blood 4.4 mmol/L (3.5-5.5); Sodium, Blood 143 mmol/L (136-145)
[2020-12-04 04:49] LABS: BASOPHILS ABSOLUTE MAN 0.06 K/mm3 (0.00-0.23); BASOPHILS PERCENT MAN 2 % (0-2); EOSINOPHILS PERCENT MAN 0 % (0-6); LYMPHOCYTES ABSOLUTE MAN 0.23 K/mm3 (0.84-5.20); LYMPHOCYTES PERCENT MAN 7 % (21-46); MONOCYTES PERCENT MAN 0 % (4-13); SEG NEUTROPHILS PERCENT MAN 91 % (41-73); TOTAL CELLS COUNTED 100
--- NOTE | 2020-12-04 08:20 | NUR ---
PT ARRIVED TO ICU 5 FROM ER PCU STATUSE. A/O X4, DENIES PAIN AND N/V. ABLE TO TRANSFER SELF TO BED WITHOUT DYSPNEA. TITRATED O2 FROM 4L TO 2L. PT STATES PRIOR TO COMING TO HOSPITAL SHE WAS HAVING DIFFICULTY BREATHING BUT NOW IS BETTER. PT WAS UNAWARE OF ANY EXPOSURES TO COVID. PT STATES SHE HAS HAD CATARACT SURGERY AND GETS INJECTIONS IN R EYE. R SCLERA IS BLOOD SHOT. NO SIGN OF DISTRESS.
[2020-12-04] MEDS ORDERED: Colace100 MG PO (09:44)
[2020-12-04] MEDS ORDERED: ERYT.5TO LEFTEYE (09:50)
[2020-12-04] MEDS ORDERED: SYSTANE COMPLET10 ML BOTHEYES (09:51)
--- NOTE | 2020-12-04 18:24 | NUR ---
SUMMARY PT HAD UNEVENTFUL DAY AFTER ARRIVING TO ICU. TITRATED O2 DOWN TO 1L NC. DENIES SOB AND PAIN. TOLERATING MEALS. WAS DOWNGRADED TO MEDICAL STATUS PRETTY QUICKLY. HAS BEEN GETTING OOB TO USE BSC WITH 1 PERSON MINIMAL ASSIST. NO SIGN OF DISTRESS. CALL LIGHT IN REACH.
--- NOTE | 2020-12-04 22:35 | NUR ---
SHIFT ASSESSMENT ASSUMED CARE OF PT @ 191, REPORT RECV'D FROM SHERYL JOHNS. PT ALERT AND ORIENTED. SITTING UP IN BED TEXTING ON HER PHONE. NO COMPLAINTS AT THIS TIME, STATED SHE FEELS BETTER THAN YESTERDAY. PT ABLE TO GET UP TO BEDSIDE COMMODE WITH ONE PERSON ASSIST FOR CORD MANAGEMENT. DISTRIBUTION SPECIALIST SHOWS A-FIB WHICH IS NORMAL FOR PT. CURRENTLY ON 1LPM O2 VIA NC c 02 SATS >90%. NO OTHER COMPLAINTS OR NEEDS FROM PT, CALL LIGHT WITHIN REACH. WILL CONTINUE TO MONITOR.
--- NOTE | 2020-12-04 23:13 | NUR ---
PT HAS HOME CPAP ORDER, CPAP DISCUSSED WITH PATIENT, PT STATES SHE FEELS LIKE SHE WILL BE OKAY WITH JUST A NASAL CANULA. DR SHAH NOTIFIED AND OKAYED.
[2020-12-05 02:36] LABS: International Normalized Ratio 1.82; Prothrombin Time Results 18.8 Sec (9.7-11.5)
--- NOTE | 2020-12-05 05:58 | NUR ---
SHIFT SUMMARY PT ABLE TO SLEEP T/O THE NIGHT. NO COMPLAINTS OR CHANGES IN CONDITION. O2 SATS CONTINUE TO BE ABOVE 90% ON 1-2LPM O2 VIA NC. VSS. PT ABLE TO TRANSFER FROM BED TO BEDSIDE COMMODE WITH MINIMAL ASSISTANCE. WILL CONTINUE TO MONITOR, REPORT TO ONCOMING NURSE.
--- NOTE | 2020-12-05 08:45 | NUR ---
ASSUMED CARE RECEIVED REPORT FROM SHERYL BOOTHE. PT HAD TRANSPORTED TO THE CHAIR, SHE IS AWAKE, ALERT, AND ORIENTED X 4 (SELF, SURROUNDINGS, SITUATION, TIME). ON 2L NC, THAT WAS TURNED DOWN TO 1L AT 0815, AND THEN WAS TAKEN OFF JUST NOW AT 0845 -- HER SPO2 IS 98-100% ON OXYGEN, AND 96%+ ON ROOM AIR. PT DENIES SOB AT REST, AND ONLY MILD SOB WITH EXERTION. SHE HAS AN OCCASSIONAL DRY COUGH, NONPRODUCTIVE. PT REPOSITIONS SELF IN BED, AND CAN MOVE FAIRLY INDEPENDENTLY - SOMETIMES NEEDS ASSISTANCE MANAGING CHORDS. SHE IS EATING BREAKFAST IN THE CHAIR CURRENTLY. CALL LIGHT WITHIN REACH. PT C/O FATIGUE.
--- NOTE | 2020-12-05 12:00 | NUR ---
UPDATE NO MAJOR CHANGES SINCE PREVIOUS NOTE. CONTINUES TO BE ON ROOM AIR, SPO2 95%+. DR. MUÑOZ AT BEDSIDE, DISCUSSING POTENTIAL DISCHARGE. WANTS THE REMDESIVIR TO BE GIVEN EARLIER THAN 2100. PT HAS STABLE VITALS, BP IMPROVED AFTER TAKING MORNING BP MEDS. REMAINS IN CHAIR, EATING LUNCH. CALL LIGHT WITHIN REACH.
--- NOTE | 2020-12-05 12:16 | NUR ---
UPDATE PT HAD A SOMEWHAT DARK BROWN, AND SOME BLACK IN HER BM EARLIER. NOT VERY TARRY, THOUGH. PT HAS MENTIONED TO ME THAT SHE HAS A GI ULCER AND THAT SHE HAD AN ISSUE WITH ANEMIA - R/T TO A SMALL BLEED FROM HER ULCER IN THE PAST. SHE ALSO STATES THAT WHEN SHE DID HAVE THE BLEED, AND RESULTANT ANEMIA, HER STOOL WAS WAS VERY BLACK AND TARRY AND THAT HER STOOL TODAY WAS NOT LOOKING LIKE IT HAD. DR. MUÑOZ AWARE.
--- NOTE | 2020-12-05 12:25 | NUR ---
MEDITECH BEING DOWN MOST OF THE CHARTING WAS BACK TIMED DUE TO MEDITECH BEING DOWN. EMARs WERE PRRINTED OUT TO ENSURE THE ACCURACY OF MEDICATION ADMINISTRATION.
[2020-12-05] MEDS ORDERED: DEXA2 PO (15:02)
[2020-12-05] MEDS ORDERED: SPIR25 PO (15:02)
--- NOTE | 2020-12-05 16:32 | NUR ---
ADMIT: 12/04/20 DISCHARGE: 12/05/20 DX: Shortness of breath CC: [email or web address] ADMIT: 10/17/20 DISCHARGE: 10/22/20 DX: HYPERTENSIVE EMERG/ENCY/ ADMIT: 03/11/18 DISCHARGE: 03/18/18 U[facility] CALL: Pt at home and follow up within 2 weeks RESIDENCE: HOME WITH CAREGIVER: SELF, NORM DX: CAD, HTN, DM, Afib, see list DME: INR home monitor, CPAP machine, DM shoes, DM supplies CCM: none HOME HEALTH: [facility]- 2018 SUMMARY: Admit: 12/04/20 12/05/20- per Dr. Bangura, pt is able to be back on room air and able to d/c home with home health. Pt to follow up with [facility] clinic within 2 weeks. -shania
--- NOTE | 2020-12-05 16:32 | NUR ---
DISCHARGE PT OUT OF ICU AT 1620; FULLY AWAKE, ALERT, AND ORIENTED X 4. DENIES PAIN, SOB AND ANY DISCOMFORT. PT RECEIVED DISCHARGE INSTRUCTIONS: COUMADIN, NEW MEDICATIONS: ALDACTONE AND DECADRON, BP AND BLOOD SUGAR MONITORING AT HOME, SIGNS AND SYMPTOMS TO BE ON THE LOOKOUT FOR, SOCIAL DISTANCING, EFM WILL FOLLOW UP WITH HER, ETC... MEDICATIONS CALLED IN TO PHARMACY AT [facility] AT [phone]. SPOUSE HERE WITH VEHICLE TO INFORMATION TECHNOLOGY AUDIT MANAGER THE PT.
== END 2020-12-05 16:25 | disposition home or self-care (01) | DRG 177 ==
LOC: ER 21:39 → EDBEDREQ 12-04 02:59 → ERHOLD 12-04 03:00 → ICUE 12-04 03:00
PROVIDERS: Emergency Medicine; ADMIT Internal Medicine
PROC: 8E0ZXY6 Isolation (ICD-10-PCS; 2020-12-03)
PROC: XW033E5 Introduction of Remdesivir Anti-infective into Peripheral Vein, Percutaneous Approach, New Technology Group 5 (ICD-10-PCS; principal; 2020-12-04)
DX: U07.1 COVID-19 (principal); J12.82 Pneumonia due to coronavirus disease 2019; J96.01 Acute respiratory failure with hypoxia; I50.33 Acute on chronic diastolic (congestive) heart failure; I48.20 Chronic atrial fibrillation, unspecified; J44.0 Chronic obstructive pulmonary disease with (acute) lower respiratory infection; Z68.42 Body mass index [BMI] 45.0-49.9, adult; I07.1 Rheumatic tricuspid insufficiency; I11.0 Hypertensive heart disease with heart failure; E11.40 Type 2 diabetes mellitus with diabetic neuropathy, unspecified; E78.5 Hyperlipidemia, unspecified; G47.33 Obstructive sleep apnea (adult) (pediatric); D64.9 Anemia, unspecified; E66.9 Obesity, unspecified; Z79.4 Long term (current) use of insulin; Z79.02 Long term (current) use of antithrombotics/antiplatelets; Z79.01 Long term (current) use of anticoagulants
CPT/HCPCS: 0241U; 36415; 71045; 80048; 80053; 82947; 83880; 84484; 85025; 85610; 87040; 93005; 93010; 96365; 96375; 99285-25; A9270; J1100; J1650; J1940; J7050

== ENCOUNTER 2020-12-06 01:06 | Day surgery (SDC) | payer MEDICARE, OTHER ==
[~2020-12-06 01:06] MED LIST changes: +Colace100 MG PO; +DEXA2 PO; +ERYT.5TO LEFTEYE; +SPIR25 PO; +SYSTANE COMPLET10 ML BOTHEYES
== END 2020-12-06 17:45 | disposition home or self-care (01) ==
LOC: ATC 01:06
DX: U07.1 COVID-19 (principal); J12.82 Pneumonia due to coronavirus disease 2019; J44.0 Chronic obstructive pulmonary disease with (acute) lower respiratory infection; J96.01 Acute respiratory failure with hypoxia; I11.0 Hypertensive heart disease with heart failure; I50.33 Acute on chronic diastolic (congestive) heart failure; I48.20 Chronic atrial fibrillation, unspecified; E11.40 Type 2 diabetes mellitus with diabetic neuropathy, unspecified; I07.1 Rheumatic tricuspid insufficiency; E78.5 Hyperlipidemia, unspecified; G47.33 Obstructive sleep apnea (adult) (pediatric); D64.9 Anemia, unspecified; E66.9 Obesity, unspecified; Z79.4 Long term (current) use of insulin; Z79.02 Long term (current) use of antithrombotics/antiplatelets; Z79.01 Long term (current) use of anticoagulants; Z68.42 Body mass index [BMI] 45.0-49.9, adult
CPT/HCPCS: 96365

== ENCOUNTER 2020-12-07 00:21 | Day surgery (SDC) | payer MEDICARE, OTHER ==
--- NOTE | 2020-12-07 17:13 | NUR ---
IV ATTEMPTED X3, UNSUCCESSFUL. PT TOLERATED WELL.
== END 2020-12-07 18:15 | disposition home or self-care (01) ==
LOC: ATC 00:21
DX: U07.1 COVID-19 (principal); J12.82 Pneumonia due to coronavirus disease 2019; J96.01 Acute respiratory failure with hypoxia; I16.0 Hypertensive urgency; I11.0 Hypertensive heart disease with heart failure; I50.33 Acute on chronic diastolic (congestive) heart failure; I07.1 Rheumatic tricuspid insufficiency; I48.91 Unspecified atrial fibrillation; G47.30 Sleep apnea, unspecified; E78.5 Hyperlipidemia, unspecified; E11.40 Type 2 diabetes mellitus with diabetic neuropathy, unspecified; Z79.4 Long term (current) use of insulin; Z79.01 Long term (current) use of anticoagulants; Z79.02 Long term (current) use of antithrombotics/antiplatelets; Z89.429 Acquired absence of other toe(s), unspecified side; Z90.711 Acquired absence of uterus with remaining cervical stump; Z88.2 Allergy status to sulfonamides; Z88.8 Allergy status to other drugs, medicaments and biological substances
CPT/HCPCS: 96365

== ENCOUNTER 2020-12-19 01:48 | Inpatient (IN) | payer MEDICARE, OTHER ==
[~2020-12-19] VITALS: Ht 167.6 cm; Wt 116.0 kg
[2020-12-19 02:19] LABS: BASOPHILS ABSOLUTE AUTO 0.01 K/mm3 (0.00-0.23); BASOPHILS PERCENT AUTO 0 % (0-2); EOSINOPHILS ABSOLUTE AUTO 0.02 K/mm3 (0.00-0.68); EOSINOPHILS PERCENT AUTO 0 % (0-6); Hematocrit 32.7 % (33.0-51.0); Hemoglobin 10.4 g/dL (11.5-16.0); IMMATURE GRAN ABSOLUTE AUTO 0.08 K/mm3 (0.00-0.10); IMMATURE GRAN PERCENT AUTO 1 % (0-1); LYMPHOCYTES ABSOLUTE AUTO 0.23 K/mm3 (0.84-5.20); LYMPHOCYTES PERCENT AUTO 2 % (21-46); MONOCYTES ABSOLUTE AUTO 0.38 K/mm3 (0.16-1.47); MONOCYTES PERCENT AUTO 3 % (4-13); Mean Corpuscular HGB Conc 31.8 g/dL (31.5-36.5); Mean Corpuscular Volume 91 fL (80-100); NEUTROPHILS ABSOLUTE AUTO 11.38 K/mm3 (1.96-9.15); NEUTROPHILS PERCENT AUTO 94 % (41-73); Platelet Count 213 K/mm3 (150-400); RDW Coefficient Variation 15.9 % (11.7-14.2); RDW Standard Deviation 52.9 fL (35.1-46.3); Red Blood Cell Count 3.59 M/mm3 (3.80-5.20)
[2020-12-19 02:26] LABS: PCO2 Arterial 35.3 mmHg (35-45); PO2 Arterial 65.4 mmHg (80-100)
[2020-12-19 03:11] LABS: Alanine Aminotransfer (ALT/SGP 30 U/L (12-78); Albumin, Blood 2.1 g/dL (3.4-5.0); Albumin/Globulin Ratio 0.5 (0.8-1.8); Alk Phos 96 U/L (50-136); Anion Gap 8 mmol/L (6-16); Aspartate Aminotrans (AST/SGOT 31 U/L (12-37); Bilirubin, Total 0.5 mg/dL (0.1-1.0); Blood Urea Nitrogen 37 mg/dL (8-24); Bun/Creatinine Ratio 41.2 (12.0-20.0); CO2, Blood 22 mmol/L (21-32); Calcium, Blood 8.2 mg/dL (8.5-10.1); Chloride, Blood 105 mmol/L (98-108); Glomerular Filtration Rate >60 (60-); Glucose, Blood 330 mg/dL (70-99); Potassium, Blood 4.4 mmol/L (3.5-5.5); Sodium, Blood 135 mmol/L (136-145); Total Protein, Blood 6.1 g/dL (6.4-8.2)
[2020-12-19 03:15] LABS: Troponin I 0.631 ng/mL (0.000-0.040)
[2020-12-19 05:01] LABS: Influenza A, PCR NEGATIVE (NEGATIVE); Influenza B, PCR NEGATIVE (NEGATIVE); Resp Syncytial Virus, PCR NEGATIVE (NEGATIVE)
[2020-12-19 05:48] LABS: SARS-Cov-2 (COVID-19) PCR, MMC POSITIVE (NEGATIVE)
--- NOTE | 2020-12-19 10:34 | NUR ---
echocardiogram completed
[2020-12-19] MEDS ORDERED: METFORMIN HCL500 M3 PO (11:46)
[2020-12-19] MEDS ORDERED: POTA20LUD PO (11:49)
--- NOTE | 2020-12-19 15:37 | NUR ---
ADMIT:12/19/20 DISCHARGE: DX:Acute Respiratory failure with hypoxia CC: [email or web address] ADMIT: 12/04/20 DISCHARGE: 12/05/20 DX: SHORTNESS OF BREATH CC: KWILCOX ADMIT: 10/17/20 DISCHARGE: 10/22/20 DX: HYPERTENSIVE EMERG/ENCY/ ADMIT: 03/11/18 DISCHARGE: 03/18/18 URSULA CALL: PT AT HOME RESIDENCE: HOME WITH CAREGIVER: SELF, NORM DX: Afib, CAD, HTN, COVID-19, DM, see list DME: INR HOME MONITOR, CPAP MACHINE, DM SHOES, DM SUPPLIES CCM: NONE HOME HEALTH: [facility]- 2017 SUMMARY: Admit: 12/19/20 12/19/20- per chart review with Dr. Davis, pt has positive COVID and will need a couple days in the hospital for observation/care. Pt is currently waiting in ER for bed in hospital. Pt currently on 4L of )2. There are concerns that she could possible be reinfected with COVID, [id number] CHF and/or bacterial pneumonia. They will hold off on starting steroids due to underlying CHF and start remdesivir again. -shania
--- NOTE | 2020-12-19 18:39 | NUR ---
SHIFT SUMMARY PT ALERT AND ORIENTED. VS STABLE. O2 SATS REMAIN ABOVE 90% ON 4L OXYMIXER. PT REPORTS BREATHING HAS IMPROVED SINCE ADMISSION. HR AFIB WITH A RATE IN THE 80'S. PT DENIES ANY PAIN. PT ABLE TO AMBULATE TO BATHROOM WITH SBA. PT CALLS APPROPRIATELY. WILL CONTINUE TO MONITOR AND REPORT TO ONCOMING.
[2020-12-19 18:42] LABS: International Normalized Ratio 1.7; Prothrombin Time Results 17.7 Sec (9.7-11.5)
--- NOTE | 2020-12-19 20:46 | NUR ---
UPDATE NURSE PRACTIONER FRANDY PEREZ NOTIFIED OF PATIENT'S BLOOD SUGAR OF [phone]. ORDER RECEIVED.
[2020-12-20 02:27] LABS: BASOPHILS PERCENT AUTO 0 % (0-2); EOSINOPHILS PERCENT AUTO 0 % (0-6); Hematocrit 30.1 % (33.0-51.0); Hemoglobin 9.4 g/dL (11.5-16.0); IMMATURE GRAN ABSOLUTE AUTO 0.02 K/mm3 (0.00-0.10); IMMATURE GRAN PERCENT AUTO 0 % (0-1); LYMPHOCYTES ABSOLUTE AUTO 0.54 K/mm3 (0.84-5.20); LYMPHOCYTES PERCENT AUTO 8 % (21-46); MONOCYTES ABSOLUTE AUTO 0.27 K/mm3 (0.16-1.47); MONOCYTES PERCENT AUTO 4 % (4-13); Mean Corpuscular HGB 28.1 pg (26.0-34.0); Mean Corpuscular HGB Conc 31.2 g/dL (31.5-36.5); Mean Corpuscular Volume 90 fL (80-100); Mean Platelet Volume 9.9 fL (9.1-12.4); NEUTROPHILS ABSOLUTE AUTO 6.16 K/mm3 (1.96-9.15); NEUTROPHILS PERCENT AUTO 88 % (41-73); Platelet Count 204 K/mm3 (150-400); RDW Coefficient Variation 15.2 % (11.7-14.2); RDW Standard Deviation 49.8 fL (35.1-46.3); Red Blood Cell Count 3.35 M/mm3 (3.80-5.20); White Blood Cell Count 6.99 K/mm3 (4.00-11.30)
[2020-12-20 02:58] LABS: Albumin, Blood 1.9 g/dL (3.4-5.0); Albumin/Globulin Ratio 0.5 (0.8-1.8); Bilirubin, Total 0.3 mg/dL (0.1-1.0); Bun/Creatinine Ratio 39.6 (12.0-20.0); Calcium, Blood 8.4 mg/dL (8.5-10.1); Creatinine, Blood 1.11 mg/dL (0.40-1.00); Potassium, Blood 4.6 mmol/L (3.5-5.5); Total Protein, Blood 5.9 g/dL (6.4-8.2)
[2020-12-20 02:59] LABS: Troponin I 3.81 ng/mL (0.000-0.040)
--- NOTE | 2020-12-20 06:50 | NUR ---
SHIFT SUMMARY PATIENT PLEASENT AND COOPERATIVE THROUGHOUT THE NIGHT. PATIENT APPEARED TO SLEEP WELL THROUGHOUT MOST OF THE NIGHT WITH NO COMPLAINTS OF PAIN OR DISCOMFORT. PATIENT USED HER CPAP THROUGHOUT THE NIGHT AND WAS ON 4L VIA OXYMIZER WHEN OFF CPAP. PATIENT CURRENTLY RESTING IN BED WATCHING TV, VERY CHEEFUL AND PLEASENT THIS MORNING. WILL CONTINUE CURRENT PLAN OF CARE AND WILL REPORT TO ONCOMING RN.
--- NOTE | 2020-12-20 14:56 | NUR ---
12/20/20- pt was on CPAP during the night. Per chart review with Dr. Davis, pt could potentially discharged on . to COVID unit at [facility]. She is currently on 3-4L of O2. -shania
--- NOTE | 2020-12-20 18:19 | NUR ---
SHIFT SUMMARY NO ACUTE EVENTS THIS SHIFT, VSS. PATIENT ALERT AND ORIENTED, COOPERATIVE WITH CARE. PATIENT IS ABLE TO AMBULATE IN ROOM INDEPENDENTLY TO BEDSIDE COMMODE. PATIENT STARTED SHIFT ON 4 L VIA NASAL CANNULA, TITRATED DOWN TO 1 L WITH O2 SATS MAINTAINED IN LOW 90S, PATIENT TOLERATING WELL. PATIENT SET TIMER ON PERSONAL PHONE AND USED INCENTIVE SPIROMETER MULTIPLE TIMES AN HOUR THROUGH THIS DAY SHIFT, PATIENT IS HIGHLY MOTIVATED TO MAKE PROGRESS TOWARD HOME. HEPARIN GTT CONTINUED PER PHARMACY MANAGEMENT.
[2020-12-21 01:24] LABS: BASOPHILS ABSOLUTE AUTO 0.01 K/mm3 (0.00-0.23); BASOPHILS PERCENT AUTO 0 % (0-2); EOSINOPHILS ABSOLUTE AUTO 0.04 K/mm3 (0.00-0.68); EOSINOPHILS PERCENT AUTO 1 % (0-6); Hemoglobin 9.5 g/dL (11.5-16.0); IMMATURE GRAN ABSOLUTE AUTO 0.04 K/mm3 (0.00-0.10); IMMATURE GRAN PERCENT AUTO 1 % (0-1); LYMPHOCYTES PERCENT AUTO 10 % (21-46); MONOCYTES PERCENT AUTO 4 % (4-13); Mean Corpuscular HGB 28.3 pg (26.0-34.0); Mean Corpuscular HGB Conc 31.7 g/dL (31.5-36.5); Mean Corpuscular Volume 89 fL (80-100); Mean Platelet Volume 9.3 fL (9.1-12.4); NEUTROPHILS ABSOLUTE AUTO 6.82 K/mm3 (1.96-9.15); NEUTROPHILS PERCENT AUTO 85 % (41-73); Platelet Count 211 K/mm3 (150-400); RDW Coefficient Variation 15.3 % (11.7-14.2); RDW Standard Deviation 50.8 fL (35.1-46.3); Red Blood Cell Count 3.36 M/mm3 (3.80-5.20); White Blood Cell Count 8.01 K/mm3 (4.00-11.30)
[2020-12-21 01:40] LABS: Anion Gap 8 mmol/L (6-16); Blood Urea Nitrogen 52 mg/dL (8-24); Bun/Creatinine Ratio 39.7 (12.0-20.0); CHOL/HDL RATIO 3.5; CO2, Blood 23 mmol/L (21-32); Calcium, Blood 8.8 mg/dL (8.5-10.1); Chloride, Blood 106 mmol/L (98-108); Cholesterol 99 mg/dL (50-200); Creatinine, Blood 1.31 mg/dL (0.40-1.00); Glomerular Filtration Rate 43 (60-); Glucose, Blood 305 mg/dL (70-99); HDL Cholesterol 28 mg/dL (>39); LDL/HDL RATIO 1.1; Low Density Lipoprotein Chol 30 mg/dL (0-110); Potassium, Blood 4.4 mmol/L (3.5-5.5); Sodium, Blood 137 mmol/L (136-145); Triglycerides 203 mg/dL (30-160); Very Low Density Lipoprot Chol 40 mg/dL (6-32)
[2020-12-21 01:43] LABS: International Normalized Ratio 1.76; Prothrombin Time Results 18.2 Sec (9.7-11.5)
--- NOTE | 2020-12-21 05:57 | NUR ---
SHIFT SUMMARY NO ACUTE CHANGES THIS SHIFT. VSS. REMAINS AXO/PLEASANT/INDEPENDENT EXCEPT FOR MANAGING LINES. REMAINS IN SR/AFIB DEPENDING ON THE TIME OF SHIFT / 70;'S HR. PT ON 3LNC OR CPAP WITH SPO2 >94%. LUNG SOUNDS MOIST. PT ENCOURAGED TO COMPLETE FLUTTER VALVE/IS BY THIS RN AND RT. PT REMAINS UNDER FLUID RESTRICTION PARAMETERS OF 2L. OTHERWISE, PT USING CALL LIGHT APROPRIATELY. REMAINS IN ISOLATION. WILL CONTINUE TO MONITOR UNTIL SHIFT CHANGE.
--- NOTE | 2020-12-21 18:49 | NUR ---
SHIFT SUMMARY NO ACUTE EVENTS THIS SHIFT, VSS. PATIENT ON ROOM AIR, O2 SATS MAINTAINED IN 90S THROUGHOUT SHIFT. PATIENT ALERT AND ORIENTED, COOPERATIVE WITH CARE. STANDBY ASSIST TO BATHROOM FOR LINE MANAGEMENT. HEPARIN GTT CONTINUED AND WARFARIN GIVEN THIS SHIFT PER PHARMACY MANAGEMENT. PATIENT DENIED SHORTNESS OF BREATH THIS SHIFT. IV ABX CONTINUED, REMDESIVIR COMPLETED.
--- NOTE | 2020-12-22 05:22 | NUR ---
SHIFT SUMMARY NO ACUTE CHANGES THIS SHIFT. VSS. PT REMAINS AXO, IN AFIB WITH CONTROLLED RATE. PT HAS EITHER BEEN ON CPAP WHILE SLEEPING OR RA WHILE AWAKE WITH SPO2 >94%. REMAINS CONTIENET. LUNG SOUNDS HAVE CLEARED SIGNIFICANTLY FROM PREV NOC SHIFT. PT STATES FEELING "MUCH BETTER". HEPARIN CONTINUES TO INFUSE. POWERGLIDE REMAINS PATENT AND DRAWS BLOOD. PT REMAINS IN ISOLATION. WILL CONTINUE TO MONITOR UNTIL SHIFT CHANGE.
[2020-12-22 06:51] LABS: BASOPHILS ABSOLUTE AUTO 0.01 K/mm3 (0.00-0.23); BASOPHILS PERCENT AUTO 0 % (0-2); EOSINOPHILS PERCENT AUTO 2 % (0-6); Hematocrit 29.8 % (33.0-51.0); Hemoglobin 9.3 g/dL (11.5-16.0); IMMATURE GRAN ABSOLUTE AUTO 0.03 K/mm3 (0.00-0.10); IMMATURE GRAN PERCENT AUTO 1 % (0-1); LYMPHOCYTES ABSOLUTE AUTO 1.06 K/mm3 (0.84-5.20); LYMPHOCYTES PERCENT AUTO 17 % (21-46); MONOCYTES ABSOLUTE AUTO 0.35 K/mm3 (0.16-1.47); MONOCYTES PERCENT AUTO 6 % (4-13); Mean Corpuscular HGB 28.3 pg (26.0-34.0); Mean Corpuscular HGB Conc 31.2 g/dL (31.5-36.5); Mean Corpuscular Volume 91 fL (80-100); Mean Platelet Volume 9.7 fL (9.1-12.4); NEUTROPHILS ABSOLUTE AUTO 4.53 K/mm3 (1.96-9.15); NEUTROPHILS PERCENT AUTO 75 % (41-73); Platelet Count 214 K/mm3 (150-400); RDW Coefficient Variation 15.3 % (11.7-14.2); RDW Standard Deviation 51.1 fL (35.1-46.3); Red Blood Cell Count 3.29 M/mm3 (3.80-5.20); White Blood Cell Count 6.08 K/mm3 (4.00-11.30)
[2020-12-22 06:57] LABS: Bun/Creatinine Ratio 38.9 (12.0-20.0); Calcium, Blood 8.9 mg/dL (8.5-10.1); Creatinine, Blood 1.31 mg/dL (0.40-1.00); Potassium, Blood 4.7 mmol/L (3.5-5.5)
[2020-12-22 06:59] LABS: International Normalized Ratio 2.31; Prothrombin Time Results 23.6 Sec (9.7-11.5)
--- NOTE | 2020-12-22 12:40 | NUR ---
12/22/20- PER CHART REVIEW WITH DR. JOEL, PT HAS COMPLETED THE APPROPRIATE TIME FOR QUARANTINE FOR COVID. PT IS STABLE TO DISCHARGE HOME. HE WOULD LIKE TO HAVE HER FOLLOW UP IN 1 WEEK. ATTEMPTED TO SEE PT BUT SHE IS IN ISOLATION DUE TO COVID. ATTEMPTED TO CALL PT IN HER ROOM BUT THERE WAS NO ANSWER. ATTEMPTED TO REACH PT THROUGH HER CELL PHONE BUT NO ANSWER ALSO. -JENNIFER
[2020-12-22] MEDS ORDERED: DOXA1 PO (13:40)
--- NOTE | 2020-12-22 15:26 | NUR ---
PATIENT ALERT AND ORIENTED, ON ROOM AIR, DENIES PAIN/DISCOMFORT THIS SHIFT, O2 SATS STABLE IN 90S. PATIENT PROVIDED DISCHARGE INFO REGARDING FOLLOW UP PLANS, REASONS TO RETURN TO THE HOSPITAL, AND MEDICATION INFORMATION. THIS RN PROVIDED EDUCATION ON IMPORTANT OF USING INCENTIVE SPIROMETER AND FLUTTER VALVE AT HOME, AND USE OF CPAP AT NIGHT. PATIENT PROVIDED INFO REGARDING SELF-ISOLATION FOR COVID-19. PATIENT VERBALIZED UNDERSTANDING, NO SIGNS OF ACUTE DISTRESS, LEFT VIA WHEELCHAIR TO PERSONAL VEHICLE WITH FAMILY PROVIDING RIDE.
== END 2020-12-22 15:24 | disposition home health service (06) | DRG 177 ==
LOC: ER 01:48 → ERHOLD 05:58 → PCU 05:58
PROVIDERS: Emergency Medicine; Internal Medicine; Internal Medicine Cardiovascular Disease; ADMIT Internal Medicine
PROC: 8E0ZXY6 Isolation (ICD-10-PCS; principal; 2020-12-19)
PROC: 3E0333Z Introduction of Anti-inflammatory into Peripheral Vein, Percutaneous Approach (ICD-10-PCS; 2020-12-19)
PROC: XW033E5 Introduction of Remdesivir Anti-infective into Peripheral Vein, Percutaneous Approach, New Technology Group 5 (ICD-10-PCS; 2020-12-19)
DX: U07.1 COVID-19 (principal); I21.4 Non-ST elevation (NSTEMI) myocardial infarction; J96.01 Acute respiratory failure with hypoxia; J12.82 Pneumonia due to coronavirus disease 2019; I50.33 Acute on chronic diastolic (congestive) heart failure; I48.21 Permanent atrial fibrillation; Z68.41 Body mass index [BMI] 40.0-44.9, adult; I11.0 Hypertensive heart disease with heart failure; E78.5 Hyperlipidemia, unspecified; J44.9 Chronic obstructive pulmonary disease, unspecified; Z88.2 Allergy status to sulfonamides; Z88.8 Allergy status to other drugs, medicaments and biological substances; Z90.710 Acquired absence of both cervix and uterus; Z98.890 Other specified postprocedural states; I25.2 Old myocardial infarction; I25.10 Atherosclerotic heart disease of native coronary artery without angina pectoris; E66.01 Morbid (severe) obesity due to excess calories; G47.33 Obstructive sleep apnea (adult) (pediatric); Z79.02 Long term (current) use of antithrombotics/antiplatelets; Z79.4 Long term (current) use of insulin; Z79.899 Other long term (current) drug therapy; I27.20 Pulmonary hypertension, unspecified; Z79.01 Long term (current) use of anticoagulants; N18.30 Chronic kidney disease, stage 3 unspecified; D64.9 Anemia, unspecified; Z89.412 Acquired absence of left great toe; E11.8 Type 2 diabetes mellitus with unspecified complications
CPT/HCPCS: 0241U; 36415; 36600; 51703; 71260; 80048; 80053; 80061; 82803; 82947; 83605; 83880; 84145; 84484; 85025; 85610; 85730; 87040; 93005; 93010; 93306; 94660; 94667; 94762; 96365; 96367; 96375; 99285-25; A9270; J0456; J0696; J1100; J1644; J1650; J1940; J7050; Q9967

== ENCOUNTER 2021-02-24 10:16 | Day surgery (SDC) | payer MEDICARE, OTHER ==
[~2021-02-24] VITALS: Ht 170.2 cm; Wt 112.1 kg
[~2021-02-24 10:16] MED LIST changes: +DOXA1 PO; +METFORMIN HCL500 M3 PO
--- NOTE | 2021-02-24 12:06 | NUR ---
02/24/21 Silvana6 Yin Martinez SIMETHICONE USED DURING PROCEDURE.
== END 2021-02-24 12:45 | disposition home or self-care (01) ==
LOC: ORSCSDS 10:16
PROVIDERS: Internal Medicine Gastroenterology
PROC: 0DBK8ZX Excision of Ascending Colon, Via Natural or Artificial Opening Endoscopic, Diagnostic (ICD-10-PCS; principal; 2021-02-24 11:15)
PROC: 0DBL8ZX Excision of Transverse Colon, Via Natural or Artificial Opening Endoscopic, Diagnostic (ICD-10-PCS; principal; 2021-02-24 11:15)
PROC: 0DBM8ZX Excision of Descending Colon, Via Natural or Artificial Opening Endoscopic, Diagnostic (ICD-10-PCS; principal; 2021-02-24 11:15)
PROC: 0DBN8ZX Excision of Sigmoid Colon, Via Natural or Artificial Opening Endoscopic, Diagnostic (ICD-10-PCS; principal; 2021-02-24 11:15)
PROC: 0DB98ZX Excision of Duodenum, Via Natural or Artificial Opening Endoscopic, Diagnostic (ICD-10-PCS; principal; 2021-02-24 11:15)
PROC: 0DBA8ZX Excision of Jejunum, Via Natural or Artificial Opening Endoscopic, Diagnostic (ICD-10-PCS; principal; 2021-02-24 11:15)
PROC: 0DB78ZX Excision of Stomach, Pylorus, Via Natural or Artificial Opening Endoscopic, Diagnostic (ICD-10-PCS; principal; 2021-02-24 11:15)
DX: D50.0 Iron deficiency anemia secondary to blood loss (chronic) (principal); Z86.010 Personal history of colon polyps; D12.2 Benign neoplasm of ascending colon; D12.3 Benign neoplasm of transverse colon; K63.5 Polyp of colon; K64.8 Other hemorrhoids; I10 Essential (primary) hypertension; I25.10 Atherosclerotic heart disease of native coronary artery without angina pectoris; I25.2 Old myocardial infarction; N18.9 Chronic kidney disease, unspecified; E11.9 Type 2 diabetes mellitus without complications; E66.01 Morbid (severe) obesity due to excess calories; Z68.38 Body mass index [BMI] 38.0-38.9, adult; Z79.84 Long term (current) use of oral hypoglycemic drugs; Z79.01 Long term (current) use of anticoagulants; Z79.899 Other long term (current) drug therapy
CPT/HCPCS: 82947; 88305; 88342; A9270; J2370; J2704; J3010; J7120

== ENCOUNTER 2021-03-24 10:01 | Day surgery (SDC) | payer MEDICARE, OTHER ==
[2021-03-23 17:40] LABS: IMMATURE RETIC FRACTION 28.3 % (2.3-16.0); RETIC HGB EQUIVALENT 22.1 pg (28.20-36.60); RETICULOCYTE ABSOLUTE 0.1234 M/mm3 (0.0200-0.1100); RETICULOCYTE COUNT PERCENT 5.51 % (0.50-2.50)
[2021-03-23 17:42] LABS: BASOPHILS ABSOLUTE AUTO 0.01 K/mm3 (0.00-0.23); BASOPHILS PERCENT AUTO 0 % (0-2); EOSINOPHILS ABSOLUTE AUTO 0.08 K/mm3 (0.00-0.68); EOSINOPHILS PERCENT AUTO 1 % (0-6); Hematocrit 22.7 % (33.0-51.0); Hemoglobin 6.5 g/dL (11.5-16.0); IMMATURE GRAN ABSOLUTE AUTO 0.02 K/mm3 (0.00-0.10); IMMATURE GRAN PERCENT AUTO 0 % (0-1); LYMPHOCYTES ABSOLUTE AUTO 0.34 K/mm3 (0.84-5.20); LYMPHOCYTES PERCENT AUTO 6 % (21-46); MONOCYTES ABSOLUTE AUTO 0.43 K/mm3 (0.16-1.47); MONOCYTES PERCENT AUTO 8 % (4-13); Mean Corpuscular HGB 28.8 pg (26.0-34.0); Mean Corpuscular HGB Conc 28.6 g/dL (31.5-36.5); Mean Corpuscular Volume 100 fL (80-100); Mean Platelet Volume 9.6 fL (9.1-12.4); NEUTROPHILS ABSOLUTE AUTO 4.66 K/mm3 (1.96-9.15); NEUTROPHILS PERCENT AUTO 84 % (41-73); Platelet Count 253 K/mm3 (150-400); RDW Coefficient Variation 17.2 % (11.7-14.2); RDW Standard Deviation 61.6 fL (35.1-46.3); Red Blood Cell Count 2.26 M/mm3 (3.80-5.20); White Blood Cell Count 5.54 K/mm3 (4.00-11.30)
[2021-03-23 20:47] LABS: Albumin, Blood 3.2 g/dL (3.4-5.0); Albumin/Globulin Ratio 0.9 (0.8-1.8); Bilirubin, Total 0.4 mg/dL (0.1-1.0); Bun/Creatinine Ratio 61.4 (12.0-20.0); Calcium, Blood 9.3 mg/dL (8.5-10.1); Creatinine, Blood 1.45 mg/dL (0.40-1.00); Globulin, Blood 3.6 g/dL (2.2-4.0); Total Protein, Blood 6.8 g/dL (6.4-8.2)
[2021-03-24] MEDS ORDERED: ZINC OXIDE57 GM TOP (15:23)
[2021-03-24] MEDS ORDERED: Cardura1 MG PO (15:23)
[2021-03-24] MEDS ORDERED: FISH OIL 1,2001 EAC7 PO (15:24)
[2021-03-24] MEDS ORDERED: PROBIOTIC1 EA13 PO (15:24)
[2021-03-24] MEDS ORDERED: INSULANI SC (15:25)
[2021-03-24] MEDS ORDERED: GENICIN500 M1 PO (15:26)
== END 2021-03-24 17:43 | disposition home or self-care (01) ==
LOC: ATC
PROVIDERS: Internal Medicine
DX: D53.9 Nutritional anemia, unspecified (principal); I12.9 Hypertensive chronic kidney disease with stage 1 through stage 4 chronic kidney disease, or unspecified chronic kidney disease; E11.22 Type 2 diabetes mellitus with diabetic chronic kidney disease; N18.30 Chronic kidney disease, stage 3 unspecified; E11.3591 Type 2 diabetes mellitus with proliferative diabetic retinopathy without macular edema, right eye; E11.42 Type 2 diabetes mellitus with diabetic polyneuropathy; I25.10 Atherosclerotic heart disease of native coronary artery without angina pectoris; E78.5 Hyperlipidemia, unspecified; I48.91 Unspecified atrial fibrillation; Z89.412 Acquired absence of left great toe; Z79.4 Long term (current) use of insulin; Z79.01 Long term (current) use of anticoagulants
CPT/HCPCS: 36415; 36430; 80053; 82607; 82728; 82746; 83540; 83550; 83970; 85025; 85045; 86850; 86870; 86900; 86901; 86902; 86905; 86922; J7050; P9016

== ENCOUNTER → 2021-03-25 | Outpatient (CLI) | payer MEDICARE, OTHER ==
[~2021-03-25] MED LIST changes: +CEPH250A PO; +Cardura1 MG PO; +FISH OIL 1,2001 EAC7 PO; +GENICIN500 M1 PO; +INSULANI SC; +IRON INFUSIONS; +PROBIOTIC1 EA13 PO; +ZINC OXIDE57 GM TOP
[2021-03-26 13:40] LABS: Stool Occult Bld Immuno 1 Positive (NEGATIVE)
== END | disposition home or self-care (01) ==
LOC: OLS 07:30 → LAB SHORT 07:30
PROVIDERS: Internal Medicine
DX: D53.9 Nutritional anemia, unspecified (principal)
CPT/HCPCS: 82274

== ENCOUNTER 2021-04-06 10:15 | Day surgery (SDC) | payer MEDICARE, OTHER ==
[~2021-04-06 10:15] MED LIST changes: -CEPH250A PO; -IRON INFUSIONS
== END 2021-04-06 16:55 | disposition home or self-care (01) ==
LOC: ATC 10:15
DX: D50.0 Iron deficiency anemia secondary to blood loss (chronic) (principal); K64.8 Other hemorrhoids; K25.7 Chronic gastric ulcer without hemorrhage or perforation; K26.9 Duodenal ulcer, unspecified as acute or chronic, without hemorrhage or perforation; I48.21 Permanent atrial fibrillation; I25.10 Atherosclerotic heart disease of native coronary artery without angina pectoris; I25.83 Coronary atherosclerosis due to lipid rich plaque; I25.2 Old myocardial infarction; I13.0 Hypertensive heart and chronic kidney disease with heart failure and stage 1 through stage 4 chronic kidney disease, or unspecified chronic kidney disease; I50.32 Chronic diastolic (congestive) heart failure; N18.30 Chronic kidney disease, stage 3 unspecified; E11.22 Type 2 diabetes mellitus with diabetic chronic kidney disease; E11.40 Type 2 diabetes mellitus with diabetic neuropathy, unspecified; I35.0 Nonrheumatic aortic (valve) stenosis; E78.5 Hyperlipidemia, unspecified; E66.01 Morbid (severe) obesity due to excess calories; G47.33 Obstructive sleep apnea (adult) (pediatric); Z79.4 Long term (current) use of insulin; Z79.01 Long term (current) use of anticoagulants; Z86.16 Personal history of COVID-19; Z89.412 Acquired absence of left great toe; Z89.421 Acquired absence of other right toe(s); Z88.8 Allergy status to other drugs, medicaments and biological substances; Z68.41 Body mass index [BMI] 40.0-44.9, adult; Z86.010 Personal history of colon polyps
CPT/HCPCS: 36415; 36430; 86850; 86900; 86901; 86902; 86922; J7050; P9016

== ENCOUNTER → 2021-04-13 | Outpatient (CLI) | payer MEDICARE, OTHER ==
[~2021-04-13] MED LIST changes: +CEPH250A PO; +IRON INFUSIONS
== END ==
LOC: LAB SHORT 11:15 → LAB 11:15
DX: D48.5 Neoplasm of uncertain behavior of skin (principal)
CPT/HCPCS: 88305

== ENCOUNTER → 2021-05-01 | Outpatient (CLI) | payer MEDICARE, OTHER ==
[~2021-05-01] MED LIST changes: -CEPH250A PO; -IRON INFUSIONS
== END | disposition home or self-care (01) ==
LOC: LAB SHORT 16:00 → LAB 16:00
DX: L97.501 Non-pressure chronic ulcer of other part of unspecified foot limited to breakdown of skin (principal)
CPT/HCPCS: 87070; 87075; 87205

== ENCOUNTER 2021-05-11 00:55 | Day surgery (SDC) | payer MEDICARE, OTHER ==
[2021-05-09 15:28] LABS: BASOPHILS ABSOLUTE AUTO 0.02 K/mm3 (0.00-0.23); BASOPHILS PERCENT AUTO 0 % (0-2); EOSINOPHILS ABSOLUTE AUTO 0.06 K/mm3 (0.00-0.68); EOSINOPHILS PERCENT AUTO 1 % (0-6); Hematocrit 25.6 % (33.0-51.0); Hemoglobin 7.3 g/dL (11.5-16.0); IMMATURE GRAN ABSOLUTE AUTO 0.02 K/mm3 (0.00-0.10); IMMATURE GRAN PERCENT AUTO 0 % (0-1); LYMPHOCYTES ABSOLUTE AUTO 0.45 K/mm3 (0.84-5.20); LYMPHOCYTES PERCENT AUTO 7 % (21-46); MONOCYTES ABSOLUTE AUTO 0.42 K/mm3 (0.16-1.47); MONOCYTES PERCENT AUTO 7 % (4-13); Mean Corpuscular HGB 28.3 pg (26.0-34.0); Mean Corpuscular HGB Conc 28.5 g/dL (31.5-36.5); Mean Corpuscular Volume 99 fL (80-100); Mean Platelet Volume 9.2 fL (9.1-12.4); NEUTROPHILS ABSOLUTE AUTO 5.08 K/mm3 (1.96-9.15); NEUTROPHILS PERCENT AUTO 84 % (41-73); Platelet Count 276 K/mm3 (150-400); RDW Coefficient Variation 17.3 % (11.7-14.2); RDW Standard Deviation 57.1 fL (35.1-46.3); Red Blood Cell Count 2.58 M/mm3 (3.80-5.20); White Blood Cell Count 6.05 K/mm3 (4.00-11.30)
[2021-05-11] MEDS ORDERED: CEPH250A PO (15:16)
[2021-05-11] MEDS ORDERED: IRON INFUSIONS (15:17)
== END 2021-05-11 16:15 | disposition home or self-care (01) ==
LOC: ATC 00:55 → EDSTATUS 14:00 → ATC 16:15
PROVIDERS: Internal Medicine
DX: D50.0 Iron deficiency anemia secondary to blood loss (chronic) (principal); N18.30 Chronic kidney disease, stage 3 unspecified; I12.9 Hypertensive chronic kidney disease with stage 1 through stage 4 chronic kidney disease, or unspecified chronic kidney disease; I25.10 Atherosclerotic heart disease of native coronary artery without angina pectoris; E11.22 Type 2 diabetes mellitus with diabetic chronic kidney disease; E11.3591 Type 2 diabetes mellitus with proliferative diabetic retinopathy without macular edema, right eye; I35.0 Nonrheumatic aortic (valve) stenosis; E11.40 Type 2 diabetes mellitus with diabetic neuropathy, unspecified; I48.91 Unspecified atrial fibrillation; G47.33 Obstructive sleep apnea (adult) (pediatric); I48.21 Permanent atrial fibrillation; E78.00 Pure hypercholesterolemia, unspecified; E66.9 Obesity, unspecified; Z88.1 Allergy status to other antibiotic agents; Z88.2 Allergy status to sulfonamides; Z88.8 Allergy status to other drugs, medicaments and biological substances; Z79.02 Long term (current) use of antithrombotics/antiplatelets; Z79.4 Long term (current) use of insulin; Z79.01 Long term (current) use of anticoagulants
CPT/HCPCS: 36415; 36430; 85025; 86850; 86900; 86901; 86902; 86922; J7050; P9016

== ENCOUNTER → 2021-05-15 | Outpatient (CLI) | payer MEDICARE, OTHER ==
[~2021-05-15] MED LIST changes: +CEPH250A PO; +IRON INFUSIONS
== END | disposition home or self-care (01) ==
LOC: LAB 13:47 → LAB SHORT 13:47
DX: M86.171 Other acute osteomyelitis, right ankle and foot (principal); L97.519 Non-pressure chronic ulcer of other part of right foot with unspecified severity; Z89.421 Acquired absence of other right toe(s)
CPT/HCPCS: 88305; 88311

== ENCOUNTER 2021-05-25 20:08 | Inpatient (IN) | payer MEDICARE, OTHER ==
[~2021-05-25] VITALS: Ht 167.6 cm; Wt 110.4 kg
[2021-05-25 20:40] LABS: BASOPHILS ABSOLUTE AUTO 0.04 K/mm3 (0.00-0.23); BASOPHILS PERCENT AUTO 1 % (0-2); EOSINOPHILS ABSOLUTE AUTO 0.02 K/mm3 (0.00-0.68); EOSINOPHILS PERCENT AUTO 0 % (0-6); Hematocrit 33.7 % (33.0-51.0); Hemoglobin 10.1 g/dL (11.5-16.0); IMMATURE GRAN ABSOLUTE AUTO 0.03 K/mm3 (0.00-0.10); IMMATURE GRAN PERCENT AUTO 0 % (0-1); LYMPHOCYTES ABSOLUTE AUTO 0.45 K/mm3 (0.84-5.20); LYMPHOCYTES PERCENT AUTO 5 % (21-46); MONOCYTES ABSOLUTE AUTO 0.52 K/mm3 (0.16-1.47); MONOCYTES PERCENT AUTO 6 % (4-13); Mean Corpuscular HGB 29.2 pg (26.0-34.0); Mean Corpuscular Volume 97 fL (80-100); Mean Platelet Volume 9.7 fL (9.1-12.4); NEUTROPHILS ABSOLUTE AUTO 7.23 K/mm3 (1.96-9.15); NEUTROPHILS PERCENT AUTO 87 % (41-73); Platelet Count 284 K/mm3 (150-400); RDW Coefficient Variation 19.5 % (11.7-14.2); RDW Standard Deviation 69.8 fL (35.1-46.3); Red Blood Cell Count 3.46 M/mm3 (3.80-5.20); White Blood Cell Count 8.29 K/mm3 (4.00-11.30)
[2021-05-25 20:50] LABS: Alanine Aminotransfer (ALT/SGP 30 U/L (12-78); Albumin, Blood 3.1 g/dL (3.4-5.0); Albumin/Globulin Ratio 0.8 (0.8-1.8); Alk Phos 139 U/L (50-136); Anion Gap 7 mmol/L (6-16); Aspartate Aminotrans (AST/SGOT 22 U/L (12-37); Bilirubin, Total 0.6 mg/dL (0.1-1.0); Blood Urea Nitrogen 54 mg/dL (8-24); CO2, Blood 22 mmol/L (21-32); Calcium, Blood 9.7 mg/dL (8.5-10.1); Chloride, Blood 110 mmol/L (98-108); Creatinine, Blood 1.08 mg/dL (0.40-1.00); Glomerular Filtration Rate 50 (60-); Glucose, Blood 178 mg/dL (70-99); Potassium, Blood 4.5 mmol/L (3.5-5.5); Sodium, Blood 139 mmol/L (136-145); Total Protein, Blood 7.1 g/dL (6.4-8.2)
[2021-05-25 21:05] LABS: Troponin I <0.015 ng/mL (0.000-0.040)
[2021-05-25 21:59] LABS: SARS-Cov-2 (COVID-19) PCR, MMC NEGATIVE (NEGATIVE)
--- NOTE | 2021-05-26 02:25 | NUR ---
ADMITTED 77 YR OLD FEMALE WITH DX OF CHF, WITH SOB WITH LITTLE EXERTION. ORIENTED TO CALL LIGHT. CALL LIGHT IN REACH. O2 PER NC.
[2021-05-26 02:38] LABS: Bun/Creatinine Ratio 44.2 (12.0-20.0); Calcium, Blood 9.5 mg/dL (8.5-10.1); Creatinine, Blood 1.2 mg/dL (0.40-1.00); Potassium, Blood 4.5 mmol/L (3.5-5.5)
--- NOTE | 2021-05-26 06:17 | NUR ---
SEWAGE PLANT ATTENDANT SUMMARY ADMITTED TO FLOOR THIS SHIFT WITH CHF, AND SOB WITH EXERTION. PLACED ON MED TELE, A FIB AND PVCS NOTED. USING OWN BIPAP WHICH HER BROUGHT IN . HOB ELEVATED. TROPONIN ELEVATED, DENIES CHEST PAIN. WAS NOTIFIED. CALL LIGHT IN REACH
--- NOTE | 2021-05-26 16:41 | NUR ---
Update 05/26/21: Per chart review with Dr. Davis, pt. not quite ready for discharge. Needing additional dose of lasix and monitoring. Pt. potentially discharging over the weekend. Discussed discharge planning with pt. She has family to provide transportation. Denied concerns with safety or barriers to care at home. Pt. scheduled for hospital f/u appt. on 05/30/21 at 3:50pm.
--- NOTE | 2021-05-26 17:16 | NUR ---
SUMMARY PT SITTING UP IN BED VISITING WITH HER SPOUSE, PT REMAINS ON 2L NC, PT DESATS WHEN WEANED OFF O2, TELE HAS CALLED EACH TIME THE PT HAS GOTTEN UP TO THE BATHROOM DUE TO TACHYCARDIA, PT DENIES CHEST PAIN, DRESSING CHANGED TO PT'S R FOOT PER HER REQUEST, PT MISSING ALL BUT THE BIG AND SMALL TOES ON HER R FOOT, INCISION CLEAN AND DRY, GAUZE AND KERLIX AND CHRISSY WRAP REPLACED, PT JAIMEE WELL, PT HAS BEEN PLEASANT AND COOPERATIVE T/O THE DAY, UP WITH 1P ASSIST AND THE WALKER, NO COMPLAINTS, VSS, WILL CONT TO MONITOR
[2021-05-26 19:44] LABS: Hematocrit 32.6 % (33.0-51.0); Hemoglobin 9.9 g/dL (11.5-16.0)
[2021-05-26 20:11] LABS: Albumin/Globulin Ratio 0.8 (0.8-1.8); Bilirubin, Total 0.6 mg/dL (0.1-1.0); Calcium, Blood 9.6 mg/dL (8.5-10.1); Creatinine, Blood 1.04 mg/dL (0.40-1.00); Globulin, Blood 3.8 g/dL (2.2-4.0); Potassium, Blood 4.2 mmol/L (3.5-5.5); Total Protein, Blood 6.8 g/dL (6.4-8.2)
[2021-05-26 21:03] LABS: Troponin I 0.701 ng/mL (0.000-0.040)
--- NOTE | 2021-05-26 23:00 | NUR ---
ADRIAN PLACEMENT THIS RN PLACES 14 FR ADRIAN CATHETER D/T PT TACHYPNEA AND DYSPNEA W/EXERTION FOLLOWING OBTAINING PROVIDER ORDER FROM DR STAPLES. PT AGREEABLE AND REQUESTING ADRIAN D/T SOB AND WEAKNESS. 600 MLS YELLOW URINE OUT ON INSERTION.
[2021-05-26 23:31] LABS: Source, Urine Catheter
[2021-05-26 23:35] LABS: Bilirubin, Urine Neg (Neg); Blood, Urine Neg (Neg); Glucose Qualitative, Urine Neg (Neg); Ketones, Urine Neg (Neg); Leukocyte Esterase, Urine Neg (Neg); Nitrite, Urine Neg (Neg); Protein, Urine Neg (Neg); Specific Gravity, Urine 1.015 (1.003-1.022); Urobilinogen, Urine NORM (Normal)
[2021-05-26 23:40] LABS: Appearance, Urine Clear (Clear); Color, Urine Yellow (P-Yellow)
--- NOTE | 2021-05-27 04:39 | NUR ---
CALL TO DR STAPLES THIS RN CALLS TO NOTIFY DR STAPLES OF CRITICAL TROPONIN OF 12.1. DR STAPLES UPDATED ON PT VS, CARDIZEM GTT CONTINUING AT 5 MG/HR. DR STAPLES ORDERS EKG NOW. STATES SHE WILL COME BY TO SPEAK W/PT FURTHER AND ASSESS.
--- NOTE | 2021-05-27 05:29 | NUR ---
PT UPDATE DR STAPLES TO PT BEDSIDE TO VIEW AND COMPARE OLD EKG'S WITH NEW EKG'S. PT DENIES CP AT THIS TIME. CARDIZEM GTT CONTINUES. DR STAPLES GIVES THIS RN ORDER TO ADMIN PLAVIX 75 MG PO NOW AND TO START HEPARIN GTT PER NEW ORDER. KASSI FROM PHARMACY HAS SPOKEN WITH THIS RN REGARDING GTT. REQUESTS PTT HE WILL PLACE ORDER FOR TO BE DRAWN PRIOR TO HEPARIN GTT START. PT UPDATED BY ON POSSIBILTY OF [place]. PT REQUESTS HER NOT BE NOTIFIED UNTIL SHE HAS MORE INFORMATION TO TELL HIM.
--- NOTE | 2021-05-27 05:37 | NUR ---
UNABLE TO REACH CARDIOLOGY ANSWERING SERVICE 4+ ATTEMPTS TO DIFFERENT CONTACT #'S W/ASSIST FROM HAN PAGE RN TO LEAVE MESSAGE FOR CARDIOLOGY CONSULT PER DR STAPLES ORDER FOR PT THIS AM. NURSING MAINTENANCE INSPECTOR NOTIFIED BY HAN PAGE RN. UNABLE TO REACH ANSWERING SERVICE BY PHONE OR REACH VOICEMAIL FOR CONTACT #'S.
--- NOTE | 2021-05-27 06:45 | NUR ---
HELD PLAVIX AT THIS TIME PT REQUESTS PLAVIX BE HELD AT THIS TIME UNTIL FURTHER CLARIFICATION CAN BE HAD FROM PROVIDER D/T PT BEING TOLD TO STOP PLAVIX BY DR MARTIN AND TO CONTACT PACKER SAUSAGE AND WIENER JESUS IN REGARDS TO RESTARTING IT. PT REPORTS DR MARTIN TOLD HER SHE HAD SOME BLEEDING THAT WAS EVIDENCED ON ENDOSCOPY AND COULD BE WHY SHE HAS BEEN ANEMIC AND NEEDED A TRANSFUSION.
[2021-05-27 06:56] LABS: International Normalized Ratio 1.22
--- NOTE | 2021-05-27 07:22 | NUR ---
verified heparin gtt and cardizem gtt at bedside with Perico off going SHERYL.
--- NOTE | 2021-05-27 07:35 | NUR ---
SHIFT SUMMARY PT TX FROM MEDICAL FLOOR FOLLOWING OUTSIDE ENERGY SALES REPRESENTATIVES FOR CP AND AFIB RVR, PT AOX4 ON ARRIVAL, ON CARDIZEM GTT AT 10 MG/HR, HR 90'S-100'S. DENIED CP ON ARRIVAL. TACHYPNEIC. SATS 87% ON RA WHEN SWITCHED FROM NC TO CPAP. SATS 93-98% ON CPAP AT 10 L. CONTINUED GTT AT 5 MG/HR AFTER DECREASING D/T HR 80'S-90'S. PT CONTINUED TO DENY CP. TOO SOB TO ATTEMPT COMMODE, ADRIAN PLACED PER ORDER. CONTINUES TO BE TACHYPNEIC THROUGH NIGHT AND AM. STATES SOB COMES AND GOES. LATEST TROPONIN SHOWED INCREASE TO 12.1. PROVIDER NOTIFIED, NEW ORDERS INITIATED FOR EKG, HEPARIN GTT, UNABLE TO COMPLETE CARDIOLOGY CONSULT. HELD PLAVIX PER PT REQUEST (SEE NURSES NOTE). HEPARIN GTT INFUSING PER ORDERS AT 13U/KG/HR AT WT OF 82 KG. REPORT TO FELIX SAUCEDO.
--- NOTE | 2021-05-27 10:55 | NUR ---
Echocardiogram completed.
[2021-05-27 14:10] LABS: BASOPHILS ABSOLUTE AUTO 0.01 K/mm3 (0.00-0.23); BASOPHILS PERCENT AUTO 0 % (0-2); EOSINOPHILS ABSOLUTE AUTO 0.01 K/mm3 (0.00-0.68); EOSINOPHILS PERCENT AUTO 0 % (0-6); Hematocrit 30.3 % (33.0-51.0); Hemoglobin 9.1 g/dL (11.5-16.0); IMMATURE GRAN ABSOLUTE AUTO 0.03 K/mm3 (0.00-0.10); IMMATURE GRAN PERCENT AUTO 0 % (0-1); LYMPHOCYTES ABSOLUTE AUTO 0.28 K/mm3 (0.84-5.20); LYMPHOCYTES PERCENT AUTO 4 % (21-46); MONOCYTES PERCENT AUTO 10 % (4-13); Mean Corpuscular HGB 28.8 pg (26.0-34.0); Mean Corpuscular Volume 96 fL (80-100); Mean Platelet Volume 9.2 fL (9.1-12.4); NEUTROPHILS ABSOLUTE AUTO 5.73 K/mm3 (1.96-9.15); NEUTROPHILS PERCENT AUTO 85 % (41-73); Platelet Count 278 K/mm3 (150-400); RDW Coefficient Variation 19.5 % (11.7-14.2); RDW Standard Deviation 68.4 fL (35.1-46.3); Red Blood Cell Count 3.16 M/mm3 (3.80-5.20); White Blood Cell Count 6.76 K/mm3 (4.00-11.30)
--- NOTE | 2021-05-27 14:13 | NUR ---
C/O DIFFICULTY BREATHING. LUNG SOUNDS FINE CRACKLES IN BASES, MORE ON RIGHT THAN ON LEFT. BOOSTED IN BED, STATES SHE FEELS BREATHING A LITTLE BETTER. NO INCREASE IN O2 REQUIREMENTS SINCE THIS MORNING.
--- NOTE | 2021-05-27 18:54 | NUR ---
Activity intolerance continues. Heart rate better controlled today, blood pressures stable. Still requiring 3-4 nc o2 liter flow, Stayed in bed today, noted two times she c/o being short of breath. Belly breathing noted this evening. Dr. Davis here to see her and talk with the at 1830; pt was put on cpap following this conversation. Wound care completed.
[2021-05-28 05:53] LABS: Bun/Creatinine Ratio 37.7 (12.0-20.0); Calcium, Blood 9.2 mg/dL (8.5-10.1); Creatinine, Blood 1.51 mg/dL (0.40-1.00); Potassium, Blood 4.3 mmol/L (3.5-5.5)
--- NOTE | 2021-05-28 07:44 | NUR ---
SHIFT SUMMARY PT AOX4, AFIB 80'S-100'S ON TELE. DENIED CP. ON CPAP T/O SHIFT UP TO 6 L FROM 4 L D/T EPISODE OF DESAT TO 80'S. PT SLEPT RESTFULLY T/O NIGHT. ADRIAN DRAINING. HEPARIN GTT ADJUSTED PER ORDERS, CURRENTLY RUNNING AT 19 U/KG/HR.
--- NOTE | 2021-05-28 08:11 | NUR ---
PT LAYING IN BED AWAKE A/OX3, PLEASANT AND COOPERATIVE WITH CARE, FOLLOWS COMMANDS WELL, DENIES PAIN, CURRENTLY ON HER HOME CPAP WITH 8 LTIER BLEED IN, LUNGS ARE CLEAR IN UPPER GAO, COURSE/CRACKLES IN BASES, RESP EVEN AND UNLABORED, DENIES COUGH, HRIRR, TELE IN PLACE RUNNING AFIB PER MONITOR, SEE STRIP, +1 EDEMA NOTED TO B/L LE, PP FAINT, RIGHT GREAT TOE AMPUTATED RECENTLY, DRESSING IN PLACE C/D/I, SKIN OTHERWISE C/W/D, LIANET ARANDA, CALL LIGHT IN REACH.
[2021-05-28 10:22] LABS: Bun/Creatinine Ratio 39.2 (12.0-20.0); Calcium, Blood 9.3 mg/dL (8.5-10.1); Creatine Kinase MB 2.7 ng/mL (0.0-3.6); Creatinine, Blood 1.53 mg/dL (0.40-1.00); Potassium, Blood 4.1 mmol/L (3.5-5.5)
[2021-05-28 16:36] LABS: BASOPHILS ABSOLUTE AUTO 0.02 K/mm3 (0.00-0.23); BASOPHILS PERCENT AUTO 0 % (0-2); EOSINOPHILS ABSOLUTE AUTO 0.03 K/mm3 (0.00-0.68); EOSINOPHILS PERCENT AUTO 1 % (0-6); Hematocrit 29.4 % (33.0-51.0); Hemoglobin 8.6 g/dL (11.5-16.0); IMMATURE GRAN ABSOLUTE AUTO 0.02 K/mm3 (0.00-0.10); IMMATURE GRAN PERCENT AUTO 0 % (0-1); LYMPHOCYTES ABSOLUTE AUTO 0.56 K/mm3 (0.84-5.20); LYMPHOCYTES PERCENT AUTO 12 % (21-46); MONOCYTES ABSOLUTE AUTO 0.57 K/mm3 (0.16-1.47); MONOCYTES PERCENT AUTO 12 % (4-13); Mean Corpuscular HGB 28.7 pg (26.0-34.0); Mean Corpuscular HGB Conc 29.3 g/dL (31.5-36.5); Mean Corpuscular Volume 98 fL (80-100); Mean Platelet Volume 9.8 fL (9.1-12.4); NEUTROPHILS ABSOLUTE AUTO 3.69 K/mm3 (1.96-9.15); NEUTROPHILS PERCENT AUTO 75 % (41-73); Platelet Count 284 K/mm3 (150-400); RDW Coefficient Variation 19.5 % (11.7-14.2); RDW Standard Deviation 69.6 fL (35.1-46.3); White Blood Cell Count 4.89 K/mm3 (4.00-11.30)
--- NOTE | 2021-05-28 18:26 | NUR ---
PT DOING OK, DAUGHTER WAS IN TO SEE HER, WILL BE [place] TX TO [facility] WHEN BED AVAILABLE, SHE HAS NO COMPLAINTS EXCEPT HER BREATHING IS A BIT HEAVY SINCE RT TURNED DOWN HER CPAP. WILL RETURN TO 8 LITERS IF CONTINUES TO BE FEELING AIR HUNGER, NO FURTHER CHANGES THIS SHIFT. CALL LIGHT IN REACH.
--- NOTE | 2021-05-28 23:09 | NUR ---
HOME MED UPDATE PHARMACY IS MANAGING HOME MED AT THIS TIME, AWAITING RETURN OF [facility] FROM [facility]
[2021-05-29 06:05] LABS: BASOPHILS ABSOLUTE AUTO 0.03 K/mm3 (0.00-0.23); BASOPHILS PERCENT AUTO 1 % (0-2); EOSINOPHILS ABSOLUTE AUTO 0.12 K/mm3 (0.00-0.68); EOSINOPHILS PERCENT AUTO 3 % (0-6); Hematocrit 29.8 % (33.0-51.0); Hemoglobin 8.9 g/dL (11.5-16.0); IMMATURE GRAN ABSOLUTE AUTO 0.02 K/mm3 (0.00-0.10); IMMATURE GRAN PERCENT AUTO 1 % (0-1); LYMPHOCYTES PERCENT AUTO 12 % (21-46); MONOCYTES ABSOLUTE AUTO 0.43 K/mm3 (0.16-1.47); MONOCYTES PERCENT AUTO 10 % (4-13); Mean Corpuscular HGB 28.8 pg (26.0-34.0); Mean Corpuscular HGB Conc 29.9 g/dL (31.5-36.5); Mean Corpuscular Volume 96 fL (80-100); Mean Platelet Volume 8.9 fL (9.1-12.4); NEUTROPHILS ABSOLUTE AUTO 3.11 K/mm3 (1.96-9.15); NEUTROPHILS PERCENT AUTO 74 % (41-73); Platelet Count 285 K/mm3 (150-400); RDW Coefficient Variation 18.8 % (11.7-14.2); RDW Standard Deviation 66.9 fL (35.1-46.3); Red Blood Cell Count 3.09 M/mm3 (3.80-5.20); White Blood Cell Count 4.21 K/mm3 (4.00-11.30)
[2021-05-29 06:37] LABS: Albumin, Blood 2.4 g/dL (3.4-5.0); Albumin/Globulin Ratio 0.6 (0.8-1.8); Bilirubin, Total 0.6 mg/dL (0.1-1.0); Bun/Creatinine Ratio 46.2 (12.0-20.0); Calcium, Blood 9.1 mg/dL (8.5-10.1); Creatinine, Blood 1.3 mg/dL (0.40-1.00); Globulin, Blood 3.7 g/dL (2.2-4.0); Potassium, Blood 4.5 mmol/L (3.5-5.5); Total Protein, Blood 6.1 g/dL (6.4-8.2)
--- NOTE | 2021-05-29 07:34 | NUR ---
SHIFT SUMMARY PT AOX4, AFIB 70'S-90'S. ON CPAP AT 6 L THROUGH SHIFT. SATS 92-96%. DENIES CP. HEPARIN GTT CONTINUES AT 21 U/KG/HR. LANTUS HELD, PT MEDICATED WITH WEEKLY HOME DOSE OF TRULICITY PER ORDER AFTER VERIFIED BY PHARMACY. PT UP TO BEDSIDE COMMODE W/ONE PERSON ASSIST. CONTINUES TO BE TACHYPNEIC AT REST AND DYSPNEIC W/EXERTION. PENDING TX.
[2021-05-29 12:31] LABS: Hematocrit 31.6 % (33.0-51.0); Hemoglobin 9.3 g/dL (11.5-16.0)
[2021-05-29 17:25] LABS: BASOPHILS ABSOLUTE AUTO 0.02 K/mm3 (0.00-0.23); BASOPHILS PERCENT AUTO 0 % (0-2); EOSINOPHILS ABSOLUTE AUTO 0.11 K/mm3 (0.00-0.68); EOSINOPHILS PERCENT AUTO 2 % (0-6); Hematocrit 32.4 % (33.0-51.0); Hemoglobin 9.7 g/dL (11.5-16.0); IMMATURE GRAN ABSOLUTE AUTO 0.01 K/mm3 (0.00-0.10); IMMATURE GRAN PERCENT AUTO 0 % (0-1); LYMPHOCYTES ABSOLUTE AUTO 0.42 K/mm3 (0.84-5.20); LYMPHOCYTES PERCENT AUTO 9 % (21-46); MONOCYTES ABSOLUTE AUTO 0.35 K/mm3 (0.16-1.47); MONOCYTES PERCENT AUTO 8 % (4-13); Mean Corpuscular HGB 28.7 pg (26.0-34.0); Mean Corpuscular HGB Conc 29.9 g/dL (31.5-36.5); Mean Corpuscular Volume 96 fL (80-100); Mean Platelet Volume 9.3 fL (9.1-12.4); NEUTROPHILS ABSOLUTE AUTO 3.66 K/mm3 (1.96-9.15); NEUTROPHILS PERCENT AUTO 80 % (41-73); Platelet Count 328 K/mm3 (150-400); RDW Coefficient Variation 18.6 % (11.7-14.2); RDW Standard Deviation 66.1 fL (35.1-46.3); Red Blood Cell Count 3.38 M/mm3 (3.80-5.20); White Blood Cell Count 4.57 K/mm3 (4.00-11.30)
[2021-05-29 17:40] LABS: International Normalized Ratio 1.14; Prothrombin Time Results 12.2 Sec (9.7-11.5)
[2021-05-29 17:48] LABS: Bun/Creatinine Ratio 54.8 (12.0-20.0); Calcium, Blood 9.7 mg/dL (8.5-10.1); Creatinine, Blood 1.15 mg/dL (0.40-1.00); Potassium, Blood 4.7 mmol/L (3.5-5.5)
--- NOTE | 2021-05-29 18:23 | NUR ---
SHIFT SUMMARY NO ACUTE EVENTS THIS SHIFT, VSS. PT ALERT AND ORIENTED, COOPERATIVE WITH CARE. PT DENIED PAIN THIS SHIFT, ON 5L O2 VIA NASAL CANNULA. PT CALLED APPROPRIATELY, STANDBY ASSIST FOR LINE MANAGEMENT TO RECLINER AND BEDSIDE COMMODE. PT WAS UP IN RECLINER MOST OF SHIFT. HEPARIN GTT CONTINUED PER EMAR. PLAN IS FOR ANGIO TOMORROW, NPO AT MIDNIGHT.
[2021-05-30 00:12] LABS: SARS-Cov-2 (COVID-19) PCR, MMC POSITIVE (NEGATIVE)
--- NOTE | 2021-05-30 01:35 | NUR ---
ASSISTED KASSI IN PHARMACY TO DC AN ORDER FOR EXTERNAL PACEMAKER THAT WAS PUT IN THAT WAS NOT NEEDED.
[2021-05-30 05:55] LABS: BASOPHILS ABSOLUTE AUTO 0.03 K/mm3 (0.00-0.23); BASOPHILS PERCENT AUTO 1 % (0-2); EOSINOPHILS ABSOLUTE AUTO 0.16 K/mm3 (0.00-0.68); EOSINOPHILS PERCENT AUTO 4 % (0-6); Hematocrit 30.3 % (33.0-51.0); Hemoglobin 9.1 g/dL (11.5-16.0); IMMATURE GRAN ABSOLUTE AUTO 0.01 K/mm3 (0.00-0.10); IMMATURE GRAN PERCENT AUTO 0 % (0-1); LYMPHOCYTES PERCENT AUTO 11 % (21-46); MONOCYTES PERCENT AUTO 7 % (4-13); Mean Corpuscular HGB 28.9 pg (26.0-34.0); Mean Corpuscular Volume 96 fL (80-100); Mean Platelet Volume 9.4 fL (9.1-12.4); NEUTROPHILS ABSOLUTE AUTO 3.38 K/mm3 (1.96-9.15); NEUTROPHILS PERCENT AUTO 77 % (41-73); Platelet Count 296 K/mm3 (150-400); RDW Coefficient Variation 18.5 % (11.7-14.2); RDW Standard Deviation 65.2 fL (35.1-46.3); Red Blood Cell Count 3.15 M/mm3 (3.80-5.20); White Blood Cell Count 4.38 K/mm3 (4.00-11.30)
[2021-05-30 06:13] LABS: Albumin, Blood 2.5 g/dL (3.4-5.0); Anion Gap 6 mmol/L (6-16); Blood Urea Nitrogen 56 mg/dL (8-24); Bun/Creatinine Ratio 52.3 (12.0-20.0); CO2, Blood 24 mmol/L (21-32); Calcium, Blood 9.4 mg/dL (8.5-10.1); Chloride, Blood 111 mmol/L (98-108); Creatinine, Blood 1.07 mg/dL (0.40-1.00); Glomerular Filtration Rate 51 (60-); Glucose, Blood 151 mg/dL (70-99); Phosphorus, Blood 3.2 mg/dL (2.5-4.9); Potassium, Blood 4.4 mmol/L (3.5-5.5); Sodium, Blood 141 mmol/L (136-145)
--- NOTE | 2021-05-30 06:51 | NUR ---
SHIFT SUMMARY NO ACUTE CHANGES NOTED THROUGH THE NIGHT. PT REMAINS A&O X4, 1 ASSIST TO BSC, SHE DENIES CP/PRESSURE. O2 VIA NC @ 5 L, CPAP WHILE SLEEPING, PT DOES BECOME SOB WITH ACTIVITY & TAKES AWHILE TO RECOVER. COVID TEST WAS DONE PER ORDERS FOR PENDING ANGIO THIS AM, RESULTS WERE POSITIVE. PT HAS BEEN NPO SINCE MIDNIGHT. PT CALLS FOR ASSISTANCE PRN, MARY BETH LIGHT IN REACH, WCTM & REPORT DAY RN
[2021-05-30 15:46] LABS: PCO2 Arterial 36.6 mmHg (35-45); pH Blood Arterial 7.39 (7.35-7.45)
[2021-05-30 16:01] LABS: PCO2 Arterial 43.9 mmHg (35-45); PO2 Arterial 33 mmHg (80-100); pH Blood Arterial 7.37 (7.35-7.45)
--- NOTE | 2021-05-30 17:06 | NUR ---
05/30/21- pt had COVID test done in prep for Angiogram, test came back positive. Pt had angiogram this afternoon, no plan for d/c at this time. -shania
--- NOTE | 2021-05-30 18:01 | NUR ---
SHIFT SUMMARY NO ACUTE EVENTS THIS SHIFT, VSS. PT WAS ALERT AND ORIENTED, COOPERATIVE WITH CARE AND ABLE TO CALL APPROPRIATELY. PT DENIED PAIN. PT NPO UNTIL NEWBORN HEARING SCREENER PROCEDURE. PATIENT BACK FROM ANGIO, NO BLEEDING/HEMATOMA NOTED AT R. GROIN SITE. PT'S AT BEDSIDE IN AFTERNOON, QUESTIONS ANSWERED TO SATISFACTION, BOTH DR. RODRIGES AND DR. DUNN AT BEDSIDE TO DISCUSS PLAN OF CARE.
[2021-05-31 06:10] LABS: Anion Gap 4 mmol/L (6-16); Blood Urea Nitrogen 49 mg/dL (8-24); Bun/Creatinine Ratio 50.6 (12.0-20.0); CO2, Blood 28 mmol/L (21-32); Calcium, Blood 9.7 mg/dL (8.5-10.1); Chloride, Blood 111 mmol/L (98-108); Creatinine, Blood 0.97 mg/dL (0.40-1.00); Glomerular Filtration Rate 57 (60-); Glucose, Blood 140 mg/dL (70-99); Potassium, Blood 3.8 mmol/L (3.5-5.5); Sodium, Blood 143 mmol/L (136-145)
--- NOTE | 2021-05-31 06:14 | NUR ---
SUMMARY NO ACUTE CHANGES NOTED THROUGH THE NIGHT. RIGHT GROIN SITE REMAINS C/D/I, VSS, NO C/O CP/PRESSURE, 5 L VIA NC, CPAP W/6L WHILE SLEEPING. PT WAS GIVEN TYLENOL X1 PER REQUEST FOR GENERALIZED PAIN. TOLERATING PO INTAEKE, ADRIAN PATENT W/CLEAR YELLOW URINE. CALL LIGHT IN REACH. WCTM & REPORT TO DAY RN
[2021-05-31 06:17] LABS: Digoxin (Lanoxin) 1.05 ug/mL (0.80-2.00)
--- NOTE | 2021-05-31 11:38 | NUR ---
UPDATE ORDERS FROM CARDIOLOGY TO CALL [facility] TOMORROW AM TO SEE IF BED AVAILABLE.
--- NOTE | 2021-05-31 11:38 | NUR ---
UPDATE ORDERS FROM CARDIOLOGY TO ORDER 1 VIEW CHEST X-RAY
--- NOTE | 2021-05-31 12:17 | NUR ---
05/31/21- per chart review with Dr. Hand, pt had heart cath yesterday and cardiology is doing work-up to determine if pt can have aortic valve replacement. No d/c plan at this time. -shania
--- NOTE | 2021-05-31 12:41 | NUR ---
05/31/21- per chart review with Dr. Hand, pt had heart cath yesterday and cardiology is doing work-up to determine if pt can have aortic valve replacement. No d/c plan at this time. Per cardiology chart note, they are working on getting the pt a bed at [facility]. -shania
--- NOTE | 2021-05-31 18:15 | NUR ---
SHIFT SUMMARY PT ALERT AND ORIENTED X 5. HR STABLE. BP STABLE. NO CP OR PRESSURE REPORTED. PT OXYGEN SATURATION MAINTAINED ABOVE 92% ON 1 L OF OXYGEN VIA NC. TITRATING O2 DOWN AT THIS TIME. DRESSING CHANGED CHANGED ON R FOOT, SILVADENE OINTMENT USED PER ORDERS. PT SBA TO COMMODE. ADRIAN PATENT TO GRAVITY DRAIN. AT BEDSIDE. CARDIOLOGY TO SEE PT, SEE NOTES. ORDERS PROVIDED FOR LASIX REDUCTIONS AND CHEST X RAY. ORDERS TO CALL [facility] TOMORROW AM TO CHECK FOR BED AVAILABLITY. WILL CONT TO MONITOR UNTIL REPORT GIVEN TO NIGHTSHIFT RN.
--- NOTE | 2021-06-01 04:49 | NUR ---
SHIFT SUMMARY PATIENT IS ALERT AND ORIENTED X4. 02 SATS 97% ON 5L AT BEGINNING OF SHIFT, TITRATED DOWN TO 2L 02 SATS 93%. SOB WITH ACTIVITY AND 02 REQUIREMENTS INCREASE. 1 PERSON ASSIT TO BSC. RIGHT GROIN AND RIGHT FOOT DRESSINGS C/D/I. VSS, NO ACUTE CHANGES. NO BM THIS SHIFT. CALL LIGHT IN REACH.
[2021-06-01 05:00] LABS: Bun/Creatinine Ratio 41.7 (12.0-20.0); Creatinine, Blood 1.15 mg/dL (0.40-1.00)
[2021-06-01 14:00] LABS: SARS-Cov-2 (COVID-19) PCR, MMC NEGATIVE (NEGATIVE)
[2021-06-01 15:13] LABS: Hematocrit 34.1 % (33.0-51.0); Hemoglobin 10.3 g/dL (11.5-16.0); Mean Corpuscular HGB 28.6 pg (26.0-34.0); Mean Corpuscular HGB Conc 30.2 g/dL (31.5-36.5); Mean Corpuscular Volume 95 fL (80-100); Mean Platelet Volume 9.3 fL (9.1-12.4); Platelet Count 386 K/mm3 (150-400); RDW Coefficient Variation 18.3 % (11.7-14.2); RDW Standard Deviation 63.3 fL (35.1-46.3); White Blood Cell Count 7.29 K/mm3 (4.00-11.30)
--- NOTE | 2021-06-01 16:45 | NUR ---
06/01/21- original plan presented today was pt was supposed to go to [facility] in [place] but was notified that transfer was cancelled. Still waiting for bed for pt up in [place]. -shania
--- NOTE | 2021-06-01 17:50 | NUR ---
SHIFT SUMMARY PT ALERT AND ORIENTED X 4. HR STABLE. BP STABLE. OXYGEN SATURATION MAINTAINED ABOVE 92% ON 1-2 L OF OXYGEN VIA NC. ORDERS FROM PHYSICIAN TO DECREASE LASIX TO ONCE DAILY, EVENING AND TO DECREASE DOSE TO 20 MG. SEE EMAR. NO CP OR PRESSURE REPORTED. PLAN FOR PT TO [facility] BY SATURDAY FOR TAVR ON SATURDAY. PT STILL ON WAITLIST TO POSSIBLY TRANFER TO OTHER HOSPITALS IN [place] THAT OFFER THE TAVR PROCEDURE. PT RE-TESTED FOR COVID FOR PHYSICIAN. PT TESTED NEGATIVE AT THIS TIME. ADRIAN PATENT TO GRAVITY. AT BEDSIDE. PT'S COCCYX RED. ENCOURAGED TO TURN Q 2 HRS. PT ABLE TO ASSIST IN TURNS. WILL CONT TO MONITOR UNTIL REPORT GIVEN TO NIGHTSHIFT RN.
--- NOTE | 2021-06-02 04:55 | NUR ---
SHIFT SUMMARY PATIENT IS ALERT AND ORIENTED X4. 02 SATS 93% ON 1-2L NC. PATIENT WORE CPAP WHILE SLEEPING. A.FIB @70S-80s. 1 PERSON ASSIST WITH REPOSITIONING. NGUYỄN CARDOSO. RIGHT FOOT DRESSING C/D/I. PATIENT UP TO CHAIR AT TIMES. VERBAL CUES FOR REPOSITIONING. VSS, NO ACUTE CHANGES. CALL LIGHT IN REACH.
[2021-06-02 05:24] LABS: Bun/Creatinine Ratio 40.2 (12.0-20.0); Calcium, Blood 9.1 mg/dL (8.5-10.1); Creatinine, Blood 1.02 mg/dL (0.40-1.00); Potassium, Blood 3.6 mmol/L (3.5-5.5)
--- NOTE | 2021-06-02 10:11 | NUR ---
06/02/21- waiting for approval from accepting facility to accept pt for cardiac surgery in the [place] area. -kw
--- NOTE | 2021-06-02 10:34 | NUR ---
PT ALERT AND ORIENTED THIS AM. NEURO WNL. ON 2L NASAL CANNULA SATING ABOVE 94%. WILL CONTINUE TO TITRATE DOWN. RA AT BASELINE. WEARING CPAP WHEN SLEEPING. LUNGS SOUNDING CLEAR AND DIM IN BASES. TELE SHOWING AFIB WITH HR 70-80'S. DENIES CHEST PAIN/PRESSURE. VITAL SIGNS STABLE. BOWEL TONES PRESENT. ADRIAN CATH IN PLACE, DRAINING CLEAR/YELLOW URINE TO GRAVITY. DENIES BLOODY STOOLS. DENIES NAUSEA. PPP. RIGHT TOE AMPUTATION WOUND CLEANED AND REDRESSED PER WOUND CARE ORDERS. RIGHT BOOT IN PLACE. UP WITH 1 PERSON STAND BY ASSIST. USING WALKER NEEDED. CHEST XRAY THIS AM. PLAN FOR TRANSFER THIS WEEKEND. ACHS BLOOD SUGARS. FLUID RESTRICTION MAINTAINED. WILL CONTIUE TO MONITOR. CALL LIGHT IN REACH. AT THIS TIME RESTING IN BED, DENIES NEEDS.
--- NOTE | 2021-06-02 18:22 | NUR ---
SHIFT SUMMARY: NO ACUTE CHANGES. VITAL SIGNS REMAIN STABLE. PT DENIES PAIN. EATING WELL. ADRIAN IN PLACE. USING BSC FOR BOWEL MOVEMENTS. 1 PERSON SBA. UP TO CHAIR FOR MEALS. IN TO VISIT. DENIES NEEDS AT THIS TIME. TELE REMAINS UNCHANGED. SEE PREVIOUS NOTES. CALL LIGHT IN REACH. WILL CONTINUE TO MONITOR AND REPORT OFF.
--- NOTE | 2021-06-02 19:38 | NUR ---
ASSUMED CARE PT SITTING UP IN BED WATTCHING TV. PT ALERT AND ORIENTED. VITALS ARE STABLE AND ON 2L NC WITH SATS OF 96%. DENIES CHEST PAIN OR SOB. CALL LIGHT IS WITHIN REACH. WILL CONTINUE TO MONITOR.
[2021-06-03 04:01] LABS: BASOPHILS ABSOLUTE AUTO 0.03 K/mm3 (0.00-0.23); BASOPHILS PERCENT AUTO 1 % (0-2); EOSINOPHILS ABSOLUTE AUTO 0.18 K/mm3 (0.00-0.68); EOSINOPHILS PERCENT AUTO 3 % (0-6); IMMATURE GRAN ABSOLUTE AUTO 0.03 K/mm3 (0.00-0.10); IMMATURE GRAN PERCENT AUTO 1 % (0-1); LYMPHOCYTES ABSOLUTE AUTO 0.69 K/mm3 (0.84-5.20); LYMPHOCYTES PERCENT AUTO 12 % (21-46); MONOCYTES ABSOLUTE AUTO 0.55 K/mm3 (0.16-1.47); MONOCYTES PERCENT AUTO 10 % (4-13); Mean Corpuscular HGB 28.2 pg (26.0-34.0); Mean Corpuscular Volume 94 fL (80-100); Mean Platelet Volume 9.4 fL (9.1-12.4); NEUTROPHILS ABSOLUTE AUTO 4.27 K/mm3 (1.96-9.15); NEUTROPHILS PERCENT AUTO 74 % (41-73); Platelet Count 335 K/mm3 (150-400); RDW Coefficient Variation 18.1 % (11.7-14.2); Red Blood Cell Count 3.19 M/mm3 (3.80-5.20); White Blood Cell Count 5.75 K/mm3 (4.00-11.30)
[2021-06-03 04:13] LABS: Bun/Creatinine Ratio 43.4 (12.0-20.0); Calcium, Blood 8.8 mg/dL (8.5-10.1); Creatinine, Blood 1.13 mg/dL (0.40-1.00); Potassium, Blood 3.7 mmol/L (3.5-5.5)
--- NOTE | 2021-06-03 05:31 | NUR ---
SHIFT SUMMARY PT IS ALERT AND ORIENTED. VITALS ARE STABLE. DENIES CHEST PAIN OR SOB. ON CPAP FOR SLEEP; 2LNC WHEN NOT SLEEPING. ADRIAN IS PATENT AND DRAINING TO GRAVITY. PT IS ABLE TO AMBULATE WITH ONE ASSIST FWW TO BSC OR CHAIR. PT IS ABLE TO REPOSITION SELF IN BED. CALL LIGHT IS WITHIN REACH. WILL CONTINUE TO MONITOR.
--- NOTE | 2021-06-03 11:31 | NUR ---
PT ALERT AND ORIENTED X4. NEURO WNL. DENIES NUMBNESS/TINGLING. ON 1 L NASAL CANNULA SATING ABOVE 94%. WILL CONTINUE TO TITRATE DOWN. LUNGS SOUNDING CLEAR AND DIM IN BASES. WEAK/NONPRODUCTIVE COUGH. TELE SHOWING AFIB WITH HR 60-70'S. DENIES CHEST PAIN/PRESSURE. VITAL SIGNS STABLE. BOWEL TONES PRESENT. ADRIAN CATH IN PLACE DRAINING CLEAR/YELLOW URINE TO GRAVITY. PPP. RIGHT TOE WOUND FROM AMPUTATION CLEANSED AND DRESSED THIS AM, PER WOUND ORDERS. RIGHT BOOT IN PLACE. PANUS FOLDS RED WITH WOUND TO LEFT FOLD. PICTURE IN CHART. FOLDS CLEANED AND POWDER APPLIED. LEFT ABDOMINAL WOUND IN FOLD CLEANSED AND OINTMENT APPLIED. CALL LIGHT IN REACH. DENIES NEEDS AT THIS TIME. WILL CONTINUE TO MONITOR.
--- NOTE | 2021-06-03 13:29 | NUR ---
Call back rounding - Pt awoke with verbal cues and appeared to be well taken care of. Spoke with pt about her juan, health, and family. Pt states she is waiting to be tranferred up to [place] for surgery. Pt is supported well by her family. A blessing provided and she verbalized gratitude.
--- NOTE | 2021-06-03 19:24 | NUR ---
SHIFT SUMMARY: NO ACUTE CHANGES. PT WAITING TRANSFER. REPORTED OFF TO ONCOMING RN. SEE PREVIOUS NOTES.
[2021-06-04 04:26] LABS: Bun/Creatinine Ratio 48.1 (12.0-20.0); Calcium, Blood 8.4 mg/dL (8.5-10.1); Creatinine, Blood 1.06 mg/dL (0.40-1.00); Potassium, Blood 3.7 mmol/L (3.5-5.5)
--- NOTE | 2021-06-04 06:30 | NUR ---
SHIFT SUMMARY PT IS ALERT AND ORIENTED. NO ACUTE CHANGES T/O THE NIGHT. DENIES CHEST PAIN OR SOB. HAS BEEN ON 1L NC OR CPAP WHILE SLEEPING. VITALS ARE STABLE AND SATS MAINTAIN ABOVE 92%. ADRIAN IS IN PLACE AND DRAINING TO GRAVITY. CALL LIGHT IS WITHIN REACH. PT WOULD LIKE TO SEE IF HER IS ABLE TO COME VISIT HER BEFORE LEAVING TO [facility] DUE TO HOSPITAL NO LETTING VISITOR IN AT TIME. CALL LIGHT IS WITHIN REACH.
--- NOTE | 2021-06-04 09:28 | NUR ---
Spoke with transfer line at [facility]. They hope to have a bed for the patient later today, stating that she is on the top of their transfer list. They will call as soon as one available.
--- NOTE | 2021-06-04 12:09 | NUR ---
PT ALERT AND ORIENTED X4. NEURO WNL - DESCRIBES NUMBNESS/TINGLING IN LEGS/FEET THAT IS CHRONIC. TELE SHOWING AFIB WITH HR AVERAGING 60-70'S. DENIES CHEST PAIN/PRESSURE. VITAL SIGNS STABLE. EKG DONE THIS AM. ON ROOM AIR SATING ABOVE 94%. WEARING CPAP NOC. BOWEL TONES PRESENT. ADRIAN CATH IN PLACE DRAINING CLEAR/YELLOW URINE TO GRAVITY. CATHETER CARE THIS AM. UP TO [facility] WITH [facility] WHEELWALKER WITH 1 PERSON ASSIST. BED BATH THIS AM. RIGHT FOOT WOUND CLEANSED AND DRESSED THIS AM PER WOUND CARE ORDERS. PANUS FOLDS CLEANED AND POWDER/CREAM APPLIED. WAITING TRANSFER. CALL LIGHT IN REACH. UP IN RECLINER AT THIS TIME. DENIES NEEDS. WILL CONTINUE TO MONITOR.
--- NOTE | 2021-06-04 16:13 | NUR ---
COBRA TRANSFER: ROOM OPEN AT [facility]. REPORTED OFF TO NURSE. TRANSFER CALLED. PT IN ROOM. NO ACUTE CHANGES. VITAL SIGNS STABLE. PATIENT BELONGINGS PACKED UP. REPORTED OFF TO TRANSFER CREW. PATIENT LEFT UNIT WITH TRANSFER CREW AND ALL PERSONAL BELONGINGS WELL CHART INFORMATION.
== END 2021-06-04 15:53 | disposition short-term general hospital (02) | DRG 280 ==
LOC: ER 20:08 → MEDS 20:09 → PCU 05-26 16:27 → MEDS 05-26 16:27 → PCU 05-26 20:18
PROVIDERS: Emergency Medicine; Family Medicine; Internal Medicine; Internal Medicine Cardiovascular Disease; ADMIT Internal Medicine
PROC: 4A023N8 Measurement of Cardiac Sampling and Pressure, Bilateral, Percutaneous Approach (ICD-10-PCS; principal; 2021-05-30)
PROC: B2151ZZ Fluoroscopy of Left Heart using Low Osmolar Contrast (ICD-10-PCS; 2021-05-30)
PROC: B2111ZZ Fluoroscopy of Multiple Coronary Arteries using Low Osmolar Contrast (ICD-10-PCS; 2021-05-30)
DX: I13.0 Hypertensive heart and chronic kidney disease with heart failure and stage 1 through stage 4 chronic kidney disease, or unspecified chronic kidney disease (principal); I21.4 Non-ST elevation (NSTEMI) myocardial infarction; J96.01 Acute respiratory failure with hypoxia; I50.33 Acute on chronic diastolic (congestive) heart failure; I48.21 Permanent atrial fibrillation; I25.10 Atherosclerotic heart disease of native coronary artery without angina pectoris; E11.42 Type 2 diabetes mellitus with diabetic polyneuropathy; Z20.822 Contact with and (suspected) exposure to COVID-19; E78.00 Pure hypercholesterolemia, unspecified; E87.5 Hyperkalemia; D63.1 Anemia in chronic kidney disease; G47.33 Obstructive sleep apnea (adult) (pediatric); K29.70 Gastritis, unspecified, without bleeding; I25.5 Ischemic cardiomyopathy; K31.819 Angiodysplasia of stomach and duodenum without bleeding; I08.0 Rheumatic disorders of both mitral and aortic valves; E11.51 Type 2 diabetes mellitus with diabetic peripheral angiopathy without gangrene; I16.0 Hypertensive urgency; E11.22 Type 2 diabetes mellitus with diabetic chronic kidney disease; N18.32 Chronic kidney disease, stage 3b; E11.65 Type 2 diabetes mellitus with hyperglycemia; I25.2 Old myocardial infarction; Z88.2 Allergy status to sulfonamides; Z88.1 Allergy status to other antibiotic agents; Z88.8 Allergy status to other drugs, medicaments and biological substances; Z90.710 Acquired absence of both cervix and uterus; Z89.412 Acquired absence of left great toe; Z79.899 Other long term (current) drug therapy; Z79.4 Long term (current) use of insulin; Z79.02 Long term (current) use of antithrombotics/antiplatelets; Z86.73 Personal history of transient ischemic attack (TIA), and cerebral infarction without residual deficits
CPT/HCPCS: 36415; 51702; 71045; 71046; 71260; 80048; 80053; 80069; 80162; 81003; 82550; 82553; 82803; 82947; 83036; 83880; 84443; 84484; 85014; 85018; 85025; 85027; 85379; 85610; 85730; 93005; 93010; 93306; 93460; 94660; 94760; 94762; 96372; 96374-59; 96376; 99285-25; A9270; C1751; C1760; C1769; C1894; C9113; G0378; J0690; J1160; J1644; J1650; J1815; J1940; J7030; J7050; Q9967; U0004

== ENCOUNTER → 2021-06-30 | Outpatient (CLI) | payer MEDICARE, OTHER ==
[2021-06-30 16:40] LABS: Creatinine, Urine Random 38.5 mg/dL (27.00-270.00); Protein/Creat Ratio, Ur Random 0.2
== END | disposition home or self-care (01) ==
LOC: LAB SHORT 14:50 → LAB 14:50
PROVIDERS: Internal Medicine
DX: N18.31 Chronic kidney disease, stage 3a (principal)
CPT/HCPCS: 82570; 84156

== ENCOUNTER → 2021-07-05 | Outpatient (CLI) | payer MEDICARE, OTHER | END | disposition home or self-care (01) | LOC: LAB SHORT 08:33 → LAB 08:33 | DX: C44.629 Squamous cell carcinoma of skin of left upper limb, including shoulder (principal) | CPT/HCPCS: 88305 ==

== ENCOUNTER → 2021-08-02 | Outpatient (CLI) | payer MEDICARE, OTHER ==
[2021-08-02 10:39] LABS: Stool Occult Bld Immuno 1 Negative (NEGATIVE)
== END | disposition home or self-care (01) ==
LOC: LAB 07:25 → LAB SHORT 07:25
PROVIDERS: Internal Medicine
DX: D50.0 Iron deficiency anemia secondary to blood loss (chronic) (principal)
CPT/HCPCS: 82274

== ENCOUNTER → 2021-09-25 | Outpatient (CLI) | payer MEDICARE, OTHER | LOC: LAB 15:55 → LAB SHORT 15:55 | DX: D48.5 Neoplasm of uncertain behavior of skin (principal) | CPT/HCPCS: 88305 ==

== ENCOUNTER → 2021-10-25 | Outpatient (CLI) | payer MEDICARE, OTHER | END | disposition home or self-care (01) | LOC: LAB SHORT 15:22 | DX: C44.212 Basal cell carcinoma of skin of right ear and external auricular canal (principal) | CPT/HCPCS: 88305 ==

== ENCOUNTER → 2021-11-21 | Outpatient (CLI) | payer MEDICARE, OTHER | END | disposition home or self-care (01) | LOC: LAB SHORT 13:26 | DX: H92.09 Otalgia, unspecified ear (principal) | CPT/HCPCS: 87070; 87077; 87186; 87205 ==

== ENCOUNTER → 2021-12-18 | Outpatient (CLI) | payer MEDICARE, OTHER | END | disposition home or self-care (01) | LOC: LAB SHORT 12:19 | DX: D48.5 Neoplasm of uncertain behavior of skin (principal) | CPT/HCPCS: 88305; 88312; 88313 ==

== ENCOUNTER → 2022-01-01 | Outpatient (CLI) | payer MEDICARE, OTHER | END | disposition home or self-care (01) | LOC: LAB SHORT 15:21 | DX: D48.5 Neoplasm of uncertain behavior of skin (principal) | CPT/HCPCS: 88305 ==

== ENCOUNTER 2022-01-11 00:28 | Day surgery (SDC) | payer MEDICARE, OTHER ==
[2022-01-08 11:43] LABS: Hematocrit 24.3 % (33.0-51.0); Hemoglobin 7.1 g/dL (11.5-16.0)
[2022-01-11] MEDS ORDERED: ZINC15 PO (13:41)
== END 2022-01-11 16:01 | disposition home or self-care (01) ==
LOC: ATC 00:28 → EDSTATUS 13:30 → ATC 13:30
PROVIDERS: Internal Medicine
DX: D50.0 Iron deficiency anemia secondary to blood loss (chronic) (principal); I12.9 Hypertensive chronic kidney disease with stage 1 through stage 4 chronic kidney disease, or unspecified chronic kidney disease; N18.30 Chronic kidney disease, stage 3 unspecified; E11.22 Type 2 diabetes mellitus with diabetic chronic kidney disease; E11.42 Type 2 diabetes mellitus with diabetic polyneuropathy; I48.91 Unspecified atrial fibrillation; G47.33 Obstructive sleep apnea (adult) (pediatric); Z95.2 Presence of prosthetic heart valve; Z88.2 Allergy status to sulfonamides; Z88.1 Allergy status to other antibiotic agents; Z88.8 Allergy status to other drugs, medicaments and biological substances; Z79.84 Long term (current) use of oral hypoglycemic drugs; Z79.82 Long term (current) use of aspirin; Z79.899 Other long term (current) drug therapy; Z86.16 Personal history of COVID-19
CPT/HCPCS: 36415; 36430; 85014; 85018; 86850; 86870; 86900; 86901; 86922; J7050; P9016

== ENCOUNTER → 2022-08-08 | Outpatient (CLI) | payer MEDICARE, OTHER ==
[~2022-08-08] MED LIST changes: +ZINC15 PO
== END ==
LOC: LAB SHORT 14:27 → LAB 14:27
DX: I87.8 Other specified disorders of veins (principal)
CPT/HCPCS: 87070; 87075; 87205

== ENCOUNTER → 2022-08-15 | Outpatient (CLI) | payer MEDICARE, OTHER | END | disposition home or self-care (01) | LOC: LAB SHORT 11:30 → PLD 11:30 | DX: R58 Hemorrhage, not elsewhere classified (principal) | CPT/HCPCS: 88305 ==

== ENCOUNTER → 2022-08-15 | Outpatient (CLI) | payer MEDICARE, OTHER | LOC: LAB 09:58 → LAB SHORT 09:58 | DX: L08.0 Pyoderma (principal) | CPT/HCPCS: 87070; 87205 ==

== ENCOUNTER 2022-08-22 01:05 | Day surgery (SDC) | payer MEDICARE, OTHER | END 2022-08-22 23:42 | disposition home or self-care (01) | LOC: WOUND 01:05 | DX: E11.622 Type 2 diabetes mellitus with other skin ulcer (principal); L97.512 Non-pressure chronic ulcer of other part of right foot with fat layer exposed; E11.621 Type 2 diabetes mellitus with foot ulcer; L97.822 Non-pressure chronic ulcer of other part of left lower leg with fat layer exposed; E11.36 Type 2 diabetes mellitus with diabetic cataract; H26.9 Unspecified cataract; I10 Essential (primary) hypertension; E11.40 Type 2 diabetes mellitus with diabetic neuropathy, unspecified; I48.20 Chronic atrial fibrillation, unspecified; Z79.4 Long term (current) use of insulin; Z89.412 Acquired absence of left great toe; Z88.8 Allergy status to other drugs, medicaments and biological substances | CPT/HCPCS: A9270; G0463 ==

== ENCOUNTER 2022-08-29 02:27 | Day surgery (SDC) | payer MEDICARE, OTHER | END 2022-08-29 23:24 | disposition home or self-care (01) | LOC: WOUND | DX: E11.621 Type 2 diabetes mellitus with foot ulcer (principal); E11.622 Type 2 diabetes mellitus with other skin ulcer; L97.512 Non-pressure chronic ulcer of other part of right foot with fat layer exposed; L97.822 Non-pressure chronic ulcer of other part of left lower leg with fat layer exposed | CPT/HCPCS: A9270; G0463 ==

== ENCOUNTER 2022-09-05 00:41 | Day surgery (SDC) | payer MEDICARE, OTHER | END 2022-09-05 23:31 | disposition home or self-care (01) | LOC: WOUND 00:41 | DX: E11.621 Type 2 diabetes mellitus with foot ulcer (principal); L97.512 Non-pressure chronic ulcer of other part of right foot with fat layer exposed; L97.822 Non-pressure chronic ulcer of other part of left lower leg with fat layer exposed; E11.622 Type 2 diabetes mellitus with other skin ulcer | CPT/HCPCS: A9270; G0463 ==

== ENCOUNTER 2022-09-12 01:07 | Day surgery (SDC) | payer MEDICARE, OTHER | END 2022-09-12 23:09 | disposition home or self-care (01) | LOC: WOUND 01:07 | DX: E11.621 Type 2 diabetes mellitus with foot ulcer (principal); L97.512 Non-pressure chronic ulcer of other part of right foot with fat layer exposed; E11.622 Type 2 diabetes mellitus with other skin ulcer; L97.822 Non-pressure chronic ulcer of other part of left lower leg with fat layer exposed; Z79.4 Long term (current) use of insulin; E11.69 Type 2 diabetes mellitus with other specified complication; M86.171 Other acute osteomyelitis, right ankle and foot; M86.671 Other chronic osteomyelitis, right ankle and foot | CPT/HCPCS: A9270 ==

== ENCOUNTER 2022-09-17 01:03 | Day surgery (SDC) | payer MEDICARE, OTHER | END 2022-09-17 23:34 | disposition home or self-care (01) | DX: E11.621 Type 2 diabetes mellitus with foot ulcer (principal); E11.622 Type 2 diabetes mellitus with other skin ulcer; E11.69 Type 2 diabetes mellitus with other specified complication; M86.671 Other chronic osteomyelitis, right ankle and foot ==

== ENCOUNTER 2022-09-18 00:11 | Day surgery (SDC) | payer MEDICARE, OTHER | END 2022-09-18 22:58 | disposition home or self-care (01) | LOC: HBO 00:11 | DX: E11.622 Type 2 diabetes mellitus with other skin ulcer (principal); M86.671 Other chronic osteomyelitis, right ankle and foot; E11.621 Type 2 diabetes mellitus with foot ulcer; E11.69 Type 2 diabetes mellitus with other specified complication; M86.171 Other acute osteomyelitis, right ankle and foot | CPT/HCPCS: 82947; G0463 ==

== ENCOUNTER 2022-09-19 02:41 | Day surgery (SDC) | payer MEDICARE, OTHER | END 2022-09-19 23:03 | disposition home or self-care (01) | LOC: WOUND 02:41 | DX: E11.621 Type 2 diabetes mellitus with foot ulcer (principal); L97.512 Non-pressure chronic ulcer of other part of right foot with fat layer exposed; E11.622 Type 2 diabetes mellitus with other skin ulcer; L97.822 Non-pressure chronic ulcer of other part of left lower leg with fat layer exposed; Z79.4 Long term (current) use of insulin; M86.671 Other chronic osteomyelitis, right ankle and foot; E11.69 Type 2 diabetes mellitus with other specified complication; M86.171 Other acute osteomyelitis, right ankle and foot | CPT/HCPCS: A9270 ==

== ENCOUNTER 2022-09-24 01:00 | Day surgery (SDC) | payer MEDICARE, OTHER | END 2022-09-24 22:56 | disposition home or self-care (01) | LOC: HBO 01:00 | DX: E11.69 Type 2 diabetes mellitus with other specified complication (principal); E11.622 Type 2 diabetes mellitus with other skin ulcer; E11.621 Type 2 diabetes mellitus with foot ulcer; M86.671 Other chronic osteomyelitis, right ankle and foot; M86.171 Other acute osteomyelitis, right ankle and foot | CPT/HCPCS: 82947; G0277 ==

== ENCOUNTER 2022-09-25 01:51 | Day surgery (SDC) | payer MEDICARE, OTHER | END 2022-09-25 23:05 | disposition home or self-care (01) | LOC: HBO 01:51 | DX: E11.622 Type 2 diabetes mellitus with other skin ulcer (principal); E11.621 Type 2 diabetes mellitus with foot ulcer; M86.671 Other chronic osteomyelitis, right ankle and foot; M86.171 Other acute osteomyelitis, right ankle and foot; E11.69 Type 2 diabetes mellitus with other specified complication | CPT/HCPCS: 82947; G0277 ==

== ENCOUNTER 2022-09-26 06:11 | Day surgery (SDC) | payer MEDICARE, OTHER | END 2022-09-26 23:02 | disposition home or self-care (01) | LOC: HBO 06:11 | DX: E11.69 Type 2 diabetes mellitus with other specified complication (principal); M86.671 Other chronic osteomyelitis, right ankle and foot; E11.622 Type 2 diabetes mellitus with other skin ulcer; E11.621 Type 2 diabetes mellitus with foot ulcer; M86.171 Other acute osteomyelitis, right ankle and foot | CPT/HCPCS: 82947; G0277 ==

== ENCOUNTER 2022-09-27 01:37 | Day surgery (SDC) | payer MEDICARE, OTHER | END 2022-09-27 22:38 | disposition home or self-care (01) | LOC: HBO 01:37 | DX: E11.69 Type 2 diabetes mellitus with other specified complication (principal); E11.622 Type 2 diabetes mellitus with other skin ulcer; M86.671 Other chronic osteomyelitis, right ankle and foot; E11.621 Type 2 diabetes mellitus with foot ulcer; M86.171 Other acute osteomyelitis, right ankle and foot | CPT/HCPCS: 82947; G0277 ==

== ENCOUNTER 2022-09-28 00:30 | Day surgery (SDC) | payer MEDICARE, OTHER | END 2022-09-28 23:08 | disposition home or self-care (01) | LOC: HBO 00:30 | DX: E11.69 Type 2 diabetes mellitus with other specified complication (principal); M86.171 Other acute osteomyelitis, right ankle and foot; M86.671 Other chronic osteomyelitis, right ankle and foot; E11.622 Type 2 diabetes mellitus with other skin ulcer; E11.621 Type 2 diabetes mellitus with foot ulcer; L97.509 Non-pressure chronic ulcer of other part of unspecified foot with unspecified severity | CPT/HCPCS: 82947; G0277 ==

== ENCOUNTER 2022-09-28 00:37 | Day surgery (SDC) | payer MEDICARE, OTHER | END 2022-09-28 23:08 | disposition home or self-care (01) | LOC: WOUND 00:37 | DX: E11.69 Type 2 diabetes mellitus with other specified complication (principal); E11.621 Type 2 diabetes mellitus with foot ulcer; E11.622 Type 2 diabetes mellitus with other skin ulcer; L97.516 Non-pressure chronic ulcer of other part of right foot with bone involvement without evidence of necrosis; L97.822 Non-pressure chronic ulcer of other part of left lower leg with fat layer exposed; M86.671 Other chronic osteomyelitis, right ankle and foot; M86.171 Other acute osteomyelitis, right ankle and foot | CPT/HCPCS: A9270 ==

== ENCOUNTER 2022-10-01 01:24 | Day surgery (SDC) | payer MEDICARE, OTHER | END 2022-10-01 23:04 | disposition home or self-care (01) | LOC: HBO 01:24 | DX: E11.69 Type 2 diabetes mellitus with other specified complication (principal); M86.671 Other chronic osteomyelitis, right ankle and foot; E11.622 Type 2 diabetes mellitus with other skin ulcer; E11.621 Type 2 diabetes mellitus with foot ulcer; M86.171 Other acute osteomyelitis, right ankle and foot | CPT/HCPCS: 82947; G0277 ==

== ENCOUNTER 2022-10-02 02:48 | Day surgery (SDC) | payer MEDICARE, OTHER | END 2022-10-02 23:04 | disposition home or self-care (01) | LOC: HBO 02:48 | DX: E11.69 Type 2 diabetes mellitus with other specified complication (principal); M86.671 Other chronic osteomyelitis, right ankle and foot; E11.622 Type 2 diabetes mellitus with other skin ulcer; E11.621 Type 2 diabetes mellitus with foot ulcer; M86.171 Other acute osteomyelitis, right ankle and foot | CPT/HCPCS: 82947; G0277 ==

== ENCOUNTER 2022-10-03 01:26 | Day surgery (SDC) | payer MEDICARE, OTHER | END 2022-10-03 22:54 | disposition home or self-care (01) | LOC: HBO 01:26 | DX: E11.69 Type 2 diabetes mellitus with other specified complication (principal); E11.622 Type 2 diabetes mellitus with other skin ulcer; M86.671 Other chronic osteomyelitis, right ankle and foot | CPT/HCPCS: 82947; G0277 ==

== ENCOUNTER 2022-10-05 01:07 | Day surgery (SDC) | payer MEDICARE, OTHER | END 2022-10-05 23:13 | disposition home or self-care (01) | LOC: HBO 01:07 | DX: E11.69 Type 2 diabetes mellitus with other specified complication (principal); E11.621 Type 2 diabetes mellitus with foot ulcer; E11.622 Type 2 diabetes mellitus with other skin ulcer; M86.671 Other chronic osteomyelitis, right ankle and foot; M86.171 Other acute osteomyelitis, right ankle and foot | CPT/HCPCS: 82947; G0277 ==

== ENCOUNTER 2022-10-05 01:12 | Day surgery (SDC) | payer MEDICARE, OTHER | END 2022-10-05 23:13 | disposition home or self-care (01) | LOC: WOUND 01:12 | DX: E11.621 Type 2 diabetes mellitus with foot ulcer (principal); E11.622 Type 2 diabetes mellitus with other skin ulcer; L97.516 Non-pressure chronic ulcer of other part of right foot with bone involvement without evidence of necrosis; L97.822 Non-pressure chronic ulcer of other part of left lower leg with fat layer exposed; M86.171 Other acute osteomyelitis, right ankle and foot; E11.69 Type 2 diabetes mellitus with other specified complication | CPT/HCPCS: A9270 ==

== ENCOUNTER 2022-10-08 00:54 | Day surgery (SDC) | payer MEDICARE, OTHER | END 2022-10-08 22:52 | disposition home or self-care (01) | LOC: HBO 00:54 | DX: E11.622 Type 2 diabetes mellitus with other skin ulcer (principal); E11.621 Type 2 diabetes mellitus with foot ulcer; E11.69 Type 2 diabetes mellitus with other specified complication; M86.171 Other acute osteomyelitis, right ankle and foot; M86.671 Other chronic osteomyelitis, right ankle and foot | CPT/HCPCS: 82947; G0277 ==

== ENCOUNTER 2022-10-09 02:04 | Day surgery (SDC) | payer MEDICARE, OTHER | END 2022-10-09 22:45 | disposition home or self-care (01) | LOC: HBO 02:04 | DX: E11.622 Type 2 diabetes mellitus with other skin ulcer (principal); E11.621 Type 2 diabetes mellitus with foot ulcer; M86.171 Other acute osteomyelitis, right ankle and foot; M86.671 Other chronic osteomyelitis, right ankle and foot; E11.69 Type 2 diabetes mellitus with other specified complication | CPT/HCPCS: 82947; G0277 ==

== ENCOUNTER 2022-10-10 00:48 | Day surgery (SDC) | payer MEDICARE, OTHER | END 2022-10-10 23:58 | disposition home or self-care (01) | LOC: HBO | DX: E11.69 Type 2 diabetes mellitus with other specified complication (principal); E11.622 Type 2 diabetes mellitus with other skin ulcer; E11.621 Type 2 diabetes mellitus with foot ulcer; M86.171 Other acute osteomyelitis, right ankle and foot | CPT/HCPCS: 82947; G0277 ==

== ENCOUNTER 2022-10-11 01:14 | Day surgery (SDC) | payer MEDICARE, OTHER | END 2022-10-11 23:09 | disposition home or self-care (01) | LOC: HBO | DX: E11.69 Type 2 diabetes mellitus with other specified complication (principal); M86.671 Other chronic osteomyelitis, right ankle and foot; E11.622 Type 2 diabetes mellitus with other skin ulcer; E11.621 Type 2 diabetes mellitus with foot ulcer; M86.171 Other acute osteomyelitis, right ankle and foot | CPT/HCPCS: 82947; G0277 ==

== ENCOUNTER 2022-10-12 01:22 | Day surgery (SDC) | payer MEDICARE, OTHER | END 2022-10-13 23:32 | disposition home or self-care (01) | LOC: WOUND 01:22 | DX: E11.621 Type 2 diabetes mellitus with foot ulcer (principal); L97.512 Non-pressure chronic ulcer of other part of right foot with fat layer exposed; E11.622 Type 2 diabetes mellitus with other skin ulcer; L97.822 Non-pressure chronic ulcer of other part of left lower leg with fat layer exposed; M86.671 Other chronic osteomyelitis, right ankle and foot; E11.69 Type 2 diabetes mellitus with other specified complication | CPT/HCPCS: A9270 ==

== ENCOUNTER 2022-10-12 01:25 | Day surgery (SDC) | payer MEDICARE, OTHER | END 2022-10-13 23:33 | disposition home or self-care (01) | LOC: HBO 01:25 | DX: E11.622 Type 2 diabetes mellitus with other skin ulcer (principal); E11.621 Type 2 diabetes mellitus with foot ulcer; M86.671 Other chronic osteomyelitis, right ankle and foot; E11.69 Type 2 diabetes mellitus with other specified complication | CPT/HCPCS: 82947; G0277 ==

== ENCOUNTER 2022-10-19 00:20 | Day surgery (SDC) | payer MEDICARE, OTHER | END 2022-10-19 23:31 | disposition home or self-care (01) | LOC: WOUND | DX: E11.621 Type 2 diabetes mellitus with foot ulcer (principal); E11.622 Type 2 diabetes mellitus with other skin ulcer; E11.69 Type 2 diabetes mellitus with other specified complication; L97.516 Non-pressure chronic ulcer of other part of right foot with bone involvement without evidence of necrosis; M86.671 Other chronic osteomyelitis, right ankle and foot | CPT/HCPCS: A9270 ==

== ENCOUNTER 2022-10-24 00:32 | Day surgery (SDC) | payer MEDICARE, OTHER | END 2022-10-24 23:10 | disposition home or self-care (01) | LOC: HBO 00:32 | DX: E11.69 Type 2 diabetes mellitus with other specified complication (principal); M86.671 Other chronic osteomyelitis, right ankle and foot; E11.622 Type 2 diabetes mellitus with other skin ulcer; E11.621 Type 2 diabetes mellitus with foot ulcer; M86.171 Other acute osteomyelitis, right ankle and foot | CPT/HCPCS: 82947; G0277 ==

== ENCOUNTER 2022-10-25 04:04 | Day surgery (SDC) | payer MEDICARE, OTHER | END 2022-10-25 22:47 | disposition home or self-care (01) | LOC: HBO 04:04 | DX: E11.621 Type 2 diabetes mellitus with foot ulcer (principal); E11.622 Type 2 diabetes mellitus with other skin ulcer; M86.671 Other chronic osteomyelitis, right ankle and foot; M86.171 Other acute osteomyelitis, right ankle and foot | CPT/HCPCS: 82947; G0277 ==

== ENCOUNTER 2022-10-31 03:47 | Day surgery (SDC) | payer MEDICARE, OTHER | END 2022-10-31 23:06 | disposition home or self-care (01) | LOC: HBO 03:47 | DX: E11.69 Type 2 diabetes mellitus with other specified complication (principal); M86.671 Other chronic osteomyelitis, right ankle and foot; E11.622 Type 2 diabetes mellitus with other skin ulcer; E11.621 Type 2 diabetes mellitus with foot ulcer; M86.171 Other acute osteomyelitis, right ankle and foot | CPT/HCPCS: 82947; G0277 ==

== ENCOUNTER 2022-11-01 00:50 | Day surgery (SDC) | payer MEDICARE, OTHER | END 2022-11-01 22:43 | disposition home or self-care (01) | LOC: HBO 00:50 | DX: E11.621 Type 2 diabetes mellitus with foot ulcer (principal); M86.171 Other acute osteomyelitis, right ankle and foot; E11.622 Type 2 diabetes mellitus with other skin ulcer; M86.671 Other chronic osteomyelitis, right ankle and foot | CPT/HCPCS: 82947; G0277 ==

== ENCOUNTER 2022-11-02 02:41 | Day surgery (SDC) | payer MEDICARE, OTHER | END 2022-11-02 23:00 | disposition home or self-care (01) | LOC: HBO 02:41 | DX: E11.69 Type 2 diabetes mellitus with other specified complication (principal); M86.171 Other acute osteomyelitis, right ankle and foot; M86.671 Other chronic osteomyelitis, right ankle and foot | CPT/HCPCS: 82947; G0277 ==

== ENCOUNTER 2022-11-02 03:07 | Day surgery (SDC) | payer MEDICARE, OTHER | END 2022-11-02 23:00 | disposition home or self-care (01) | LOC: WOUND 03:07 | DX: E11.621 Type 2 diabetes mellitus with foot ulcer (principal); L97.516 Non-pressure chronic ulcer of other part of right foot with bone involvement without evidence of necrosis; E11.69 Type 2 diabetes mellitus with other specified complication; M86.671 Other chronic osteomyelitis, right ankle and foot; M86.171 Other acute osteomyelitis, right ankle and foot | CPT/HCPCS: A9270; G0463 ==

== ENCOUNTER 2022-11-05 02:57 | Day surgery (SDC) | payer MEDICARE, OTHER | END 2022-11-05 23:08 | disposition home or self-care (01) | LOC: HBO 02:57 | DX: E11.69 Type 2 diabetes mellitus with other specified complication (principal); M86.671 Other chronic osteomyelitis, right ankle and foot; E11.622 Type 2 diabetes mellitus with other skin ulcer; E11.621 Type 2 diabetes mellitus with foot ulcer; M86.171 Other acute osteomyelitis, right ankle and foot | CPT/HCPCS: 82947; G0277 ==

== ENCOUNTER 2022-11-06 01:20 | Day surgery (SDC) | payer MEDICARE, OTHER | END 2022-11-06 22:46 | disposition home or self-care (01) | LOC: HBO 01:20 | DX: E11.69 Type 2 diabetes mellitus with other specified complication (principal); M86.671 Other chronic osteomyelitis, right ankle and foot | CPT/HCPCS: 82947; G0277 ==

== ENCOUNTER 2022-11-07 04:53 | Day surgery (SDC) | payer MEDICARE, OTHER | END 2022-11-07 23:04 | disposition home or self-care (01) | LOC: HBO | DX: E11.69 Type 2 diabetes mellitus with other specified complication (principal); E11.622 Type 2 diabetes mellitus with other skin ulcer; E11.621 Type 2 diabetes mellitus with foot ulcer; M86.171 Other acute osteomyelitis, right ankle and foot | CPT/HCPCS: 82947; G0277 ==

== ENCOUNTER 2022-11-07 05:24 | Day surgery (SDC) | payer MEDICARE, OTHER | END 2022-11-07 23:04 | disposition home or self-care (01) | LOC: WOUND | DX: E11.69 Type 2 diabetes mellitus with other specified complication (principal); M86.171 Other acute osteomyelitis, right ankle and foot; M86.671 Other chronic osteomyelitis, right ankle and foot; E11.621 Type 2 diabetes mellitus with foot ulcer; L97.519 Non-pressure chronic ulcer of other part of right foot with unspecified severity | CPT/HCPCS: G0463 ==

== ENCOUNTER 2022-11-12 01:01 | Day surgery (SDC) | payer MEDICARE, OTHER | END 2022-11-12 22:58 | disposition home or self-care (01) | LOC: WOUND 01:01 | DX: E11.621 Type 2 diabetes mellitus with foot ulcer (principal); L97.912 Non-pressure chronic ulcer of unspecified part of right lower leg with fat layer exposed | CPT/HCPCS: A9270; G0463 ==

== ENCOUNTER 2022-11-12 01:06 | Day surgery (SDC) | payer MEDICARE, OTHER | END 2022-11-12 22:59 | disposition home or self-care (01) | LOC: HBO 01:06 | DX: E11.69 Type 2 diabetes mellitus with other specified complication (principal); M86.671 Other chronic osteomyelitis, right ankle and foot; E11.621 Type 2 diabetes mellitus with foot ulcer; E11.622 Type 2 diabetes mellitus with other skin ulcer; M86.171 Other acute osteomyelitis, right ankle and foot | CPT/HCPCS: 82947; G0277 ==

== ENCOUNTER 2022-11-13 04:41 | Day surgery (SDC) | payer MEDICARE, OTHER | END 2022-11-13 22:56 | disposition home or self-care (01) | LOC: HBO 04:41 | DX: E11.621 Type 2 diabetes mellitus with foot ulcer (principal); M86.671 Other chronic osteomyelitis, right ankle and foot | CPT/HCPCS: 82947; G0277 ==

== ENCOUNTER 2022-11-14 01:30 | Day surgery (SDC) | payer MEDICARE, OTHER | END 2022-11-14 22:53 | disposition home or self-care (01) | LOC: HBO 01:30 | DX: E11.69 Type 2 diabetes mellitus with other specified complication (principal); E11.622 Type 2 diabetes mellitus with other skin ulcer; E11.621 Type 2 diabetes mellitus with foot ulcer; M86.671 Other chronic osteomyelitis, right ankle and foot; M86.171 Other acute osteomyelitis, right ankle and foot | CPT/HCPCS: 82947; G0277 ==

== ENCOUNTER 2022-11-15 02:51 | Day surgery (SDC) | payer MEDICARE, OTHER | END 2022-11-15 23:09 | disposition home or self-care (01) | LOC: HBO 02:51 | DX: M86.671 Other chronic osteomyelitis, right ankle and foot (principal); E11.69 Type 2 diabetes mellitus with other specified complication | CPT/HCPCS: 82947; G0277 ==

== ENCOUNTER 2022-11-16 00:23 | Day surgery (SDC) | payer MEDICARE, OTHER | END 2022-11-16 22:47 | disposition home or self-care (01) | LOC: HBO 00:23 | DX: E11.621 Type 2 diabetes mellitus with foot ulcer (principal); E11.622 Type 2 diabetes mellitus with other skin ulcer; M86.171 Other acute osteomyelitis, right ankle and foot | CPT/HCPCS: 82947; G0277 ==

== ENCOUNTER 2022-11-16 01:49 | Day surgery (SDC) | payer MEDICARE, OTHER | END 2022-11-16 22:47 | disposition home or self-care (01) | LOC: WOUND 01:49 | DX: E11.69 Type 2 diabetes mellitus with other specified complication (principal); M86.671 Other chronic osteomyelitis, right ankle and foot; E11.622 Type 2 diabetes mellitus with other skin ulcer; E11.621 Type 2 diabetes mellitus with foot ulcer; M86.171 Other acute osteomyelitis, right ankle and foot | CPT/HCPCS: G0463 ==

== ENCOUNTER 2022-11-22 03:21 | Day surgery (SDC) | payer MEDICARE, OTHER | END 2022-11-22 23:32 | disposition home or self-care (01) | LOC: HBO 03:21 | DX: E11.69 Type 2 diabetes mellitus with other specified complication (principal); M86.171 Other acute osteomyelitis, right ankle and foot; M86.671 Other chronic osteomyelitis, right ankle and foot; E11.622 Type 2 diabetes mellitus with other skin ulcer; E11.621 Type 2 diabetes mellitus with foot ulcer | CPT/HCPCS: 82947; G0277 ==

== ENCOUNTER 2022-11-23 01:35 | Day surgery (SDC) | payer MEDICARE, OTHER | END 2022-11-23 22:37 | disposition home or self-care (01) | LOC: HBO 01:35 | DX: E11.69 Type 2 diabetes mellitus with other specified complication (principal); M86.171 Other acute osteomyelitis, right ankle and foot; M86.671 Other chronic osteomyelitis, right ankle and foot; E11.621 Type 2 diabetes mellitus with foot ulcer; L97.519 Non-pressure chronic ulcer of other part of right foot with unspecified severity | CPT/HCPCS: 82947; G0277 ==

== ENCOUNTER 2022-11-23 01:43 | Day surgery (SDC) | payer MEDICARE, OTHER | END 2022-11-23 22:51 | disposition home or self-care (01) | LOC: WOUND 01:43 | DX: E11.69 Type 2 diabetes mellitus with other specified complication (principal); M86.171 Other acute osteomyelitis, right ankle and foot; M86.671 Other chronic osteomyelitis, right ankle and foot | CPT/HCPCS: 82947; G0463 ==

== ENCOUNTER 2022-11-26 00:15 | Day surgery (SDC) | payer MEDICARE, OTHER | END 2022-11-26 23:13 | disposition home or self-care (01) | LOC: HBO 00:15 | DX: M86.679 Other chronic osteomyelitis, unspecified ankle and foot (principal) | CPT/HCPCS: 82947; G0277 ==

== ENCOUNTER 2022-11-27 00:49 | Day surgery (SDC) | payer MEDICARE, OTHER | END 2022-11-27 22:58 | disposition home or self-care (01) | LOC: HBO 00:49 | DX: E11.69 Type 2 diabetes mellitus with other specified complication (principal); M86.671 Other chronic osteomyelitis, right ankle and foot; E11.622 Type 2 diabetes mellitus with other skin ulcer; M86.171 Other acute osteomyelitis, right ankle and foot | CPT/HCPCS: 82947; G0463 ==

== ENCOUNTER 2022-11-28 00:32 | Day surgery (SDC) | payer MEDICARE, OTHER | END 2022-11-28 22:52 | disposition home or self-care (01) | LOC: HBO | DX: E11.69 Type 2 diabetes mellitus with other specified complication (principal); M86.171 Other acute osteomyelitis, right ankle and foot; M86.671 Other chronic osteomyelitis, right ankle and foot; E11.621 Type 2 diabetes mellitus with foot ulcer; L97.519 Non-pressure chronic ulcer of other part of right foot with unspecified severity | CPT/HCPCS: 82947; G0277 ==

== ENCOUNTER 2022-11-28 00:38 | Day surgery (SDC) | payer MEDICARE, OTHER | END 2022-11-28 22:52 | disposition home or self-care (01) | LOC: WOUND | DX: E11.621 Type 2 diabetes mellitus with foot ulcer (principal); L97.512 Non-pressure chronic ulcer of other part of right foot with fat layer exposed; E11.69 Type 2 diabetes mellitus with other specified complication; M86.171 Other acute osteomyelitis, right ankle and foot; M86.671 Other chronic osteomyelitis, right ankle and foot; E11.622 Type 2 diabetes mellitus with other skin ulcer | CPT/HCPCS: A9270; G0463 ==

== ENCOUNTER 2022-11-29 02:15 | Day surgery (SDC) | payer MEDICARE, OTHER | END 2022-11-29 22:55 | disposition home or self-care (01) | LOC: HBO 02:15 | DX: E11.69 Type 2 diabetes mellitus with other specified complication (principal); M86.671 Other chronic osteomyelitis, right ankle and foot; E11.621 Type 2 diabetes mellitus with foot ulcer; M86.171 Other acute osteomyelitis, right ankle and foot | CPT/HCPCS: 82947; G0277 ==

== ENCOUNTER 2022-11-30 00:53 | Day surgery (SDC) | payer MEDICARE, OTHER | END 2022-12-01 22:46 | disposition home or self-care (01) | LOC: HBO 00:53 | DX: E11.69 Type 2 diabetes mellitus with other specified complication (principal); M86.171 Other acute osteomyelitis, right ankle and foot; M86.671 Other chronic osteomyelitis, right ankle and foot; E11.622 Type 2 diabetes mellitus with other skin ulcer; E11.621 Type 2 diabetes mellitus with foot ulcer | CPT/HCPCS: 82947; G0277 ==

== ENCOUNTER 2022-12-05 00:32 | Day surgery (SDC) | payer MEDICARE, OTHER | END 2022-12-05 23:40 | disposition home or self-care (01) | LOC: HBO 00:32 | DX: E11.69 Type 2 diabetes mellitus with other specified complication (principal); M86.171 Other acute osteomyelitis, right ankle and foot; M86.671 Other chronic osteomyelitis, right ankle and foot; E11.622 Type 2 diabetes mellitus with other skin ulcer; E11.621 Type 2 diabetes mellitus with foot ulcer | CPT/HCPCS: 82947; G0277 ==

== ENCOUNTER 2022-12-05 08:00 | Day surgery (SDC) | payer MEDICARE, OTHER | END 2022-12-05 23:59 | disposition home or self-care (01) | LOC: WOUND 08:00 | DX: E11.621 Type 2 diabetes mellitus with foot ulcer (principal); L97.512 Non-pressure chronic ulcer of other part of right foot with fat layer exposed; E11.69 Type 2 diabetes mellitus with other specified complication; M86.171 Other acute osteomyelitis, right ankle and foot; M86.671 Other chronic osteomyelitis, right ankle and foot; E11.622 Type 2 diabetes mellitus with other skin ulcer | CPT/HCPCS: G0463 ==

== ENCOUNTER 2022-12-06 03:41 | Day surgery (SDC) | payer MEDICARE, OTHER | END 2022-12-06 22:41 | disposition home or self-care (01) | LOC: HBO 03:41 | DX: E11.69 Type 2 diabetes mellitus with other specified complication (principal); M86.171 Other acute osteomyelitis, right ankle and foot; M86.671 Other chronic osteomyelitis, right ankle and foot; E11.622 Type 2 diabetes mellitus with other skin ulcer; E11.621 Type 2 diabetes mellitus with foot ulcer | CPT/HCPCS: 82947; G0277 ==

== ENCOUNTER 2022-12-07 00:05 | Day surgery (SDC) | payer MEDICARE, OTHER | END 2022-12-07 23:16 | disposition home or self-care (01) | LOC: HBO 00:05 | DX: E11.69 Type 2 diabetes mellitus with other specified complication (principal); M86.171 Other acute osteomyelitis, right ankle and foot; M86.671 Other chronic osteomyelitis, right ankle and foot | CPT/HCPCS: 82947; G0277 ==

== ENCOUNTER 2022-12-10 00:21 | Day surgery (SDC) | payer MEDICARE, OTHER | END 2022-12-10 22:42 | disposition home or self-care (01) | LOC: HBO 00:21 | DX: E11.69 Type 2 diabetes mellitus with other specified complication (principal); M86.671 Other chronic osteomyelitis, right ankle and foot; E11.622 Type 2 diabetes mellitus with other skin ulcer; E11.621 Type 2 diabetes mellitus with foot ulcer; M86.171 Other acute osteomyelitis, right ankle and foot | CPT/HCPCS: 82947; G0277 ==

== ENCOUNTER 2022-12-11 00:19 | Day surgery (SDC) | payer MEDICARE, OTHER | END 2022-12-11 22:45 | disposition home or self-care (01) | LOC: HBO 00:19 | DX: E11.69 Type 2 diabetes mellitus with other specified complication (principal); M86.671 Other chronic osteomyelitis, right ankle and foot; E11.622 Type 2 diabetes mellitus with other skin ulcer; E11.621 Type 2 diabetes mellitus with foot ulcer; M86.171 Other acute osteomyelitis, right ankle and foot | CPT/HCPCS: 82947; G0277 ==

== ENCOUNTER 2022-12-12 00:25 | Day surgery (SDC) | payer MEDICARE, OTHER | END 2022-12-12 23:30 | disposition home or self-care (01) | LOC: HBO 00:25 | DX: E11.621 Type 2 diabetes mellitus with foot ulcer (principal); E11.622 Type 2 diabetes mellitus with other skin ulcer; E11.69 Type 2 diabetes mellitus with other specified complication; M86.171 Other acute osteomyelitis, right ankle and foot; M86.671 Other chronic osteomyelitis, right ankle and foot | CPT/HCPCS: 82947; G0277 ==

== ENCOUNTER 2022-12-12 00:32 | Day surgery (SDC) | payer MEDICARE, OTHER | END 2022-12-12 23:30 | disposition home or self-care (01) | LOC: WOUND 00:32 | DX: E11.621 Type 2 diabetes mellitus with foot ulcer (principal); L97.512 Non-pressure chronic ulcer of other part of right foot with fat layer exposed; E11.622 Type 2 diabetes mellitus with other skin ulcer; E11.69 Type 2 diabetes mellitus with other specified complication; M86.671 Other chronic osteomyelitis, right ankle and foot; M86.171 Other acute osteomyelitis, right ankle and foot | CPT/HCPCS: A9270; G0463 ==

== ENCOUNTER 2022-12-17 00:48 | Day surgery (SDC) | payer MEDICARE, OTHER | END 2022-12-17 23:39 | disposition home or self-care (01) | LOC: HBO 00:48 | DX: E11.69 Type 2 diabetes mellitus with other specified complication (principal); M86.171 Other acute osteomyelitis, right ankle and foot; M86.671 Other chronic osteomyelitis, right ankle and foot; E11.621 Type 2 diabetes mellitus with foot ulcer; E11.622 Type 2 diabetes mellitus with other skin ulcer | CPT/HCPCS: 82947; G0277 ==

== ENCOUNTER 2022-12-19 00:43 | Day surgery (SDC) | payer MEDICARE, OTHER | END 2022-12-19 22:46 | disposition home or self-care (01) | LOC: HBO 00:43 | DX: E11.69 Type 2 diabetes mellitus with other specified complication (principal); M86.671 Other chronic osteomyelitis, right ankle and foot; E11.622 Type 2 diabetes mellitus with other skin ulcer; E11.621 Type 2 diabetes mellitus with foot ulcer; M86.171 Other acute osteomyelitis, right ankle and foot | CPT/HCPCS: 82947; G0277 ==

== ENCOUNTER 2022-12-19 01:08 | Day surgery (SDC) | payer MEDICARE, OTHER | END 2022-12-19 22:47 | disposition home or self-care (01) | LOC: WOUND 01:08 | DX: E11.621 Type 2 diabetes mellitus with foot ulcer (principal); L97.512 Non-pressure chronic ulcer of other part of right foot with fat layer exposed; M86.671 Other chronic osteomyelitis, right ankle and foot; E11.69 Type 2 diabetes mellitus with other specified complication; M86.171 Other acute osteomyelitis, right ankle and foot | CPT/HCPCS: G0463 ==

== ENCOUNTER 2022-12-20 01:41 | Day surgery (SDC) | payer MEDICARE, OTHER | END 2022-12-20 22:47 | disposition home or self-care (01) | LOC: HBO 01:41 | DX: E11.69 Type 2 diabetes mellitus with other specified complication (principal); M86.671 Other chronic osteomyelitis, right ankle and foot; E11.622 Type 2 diabetes mellitus with other skin ulcer; E11.621 Type 2 diabetes mellitus with foot ulcer; M86.171 Other acute osteomyelitis, right ankle and foot | CPT/HCPCS: 82947; G0277 ==

== ENCOUNTER 2022-12-21 00:20 | Day surgery (SDC) | payer MEDICARE, OTHER | END 2022-12-21 23:12 | disposition home or self-care (01) | LOC: HBO 00:20 | DX: E11.69 Type 2 diabetes mellitus with other specified complication (principal); M86.671 Other chronic osteomyelitis, right ankle and foot; M86.171 Other acute osteomyelitis, right ankle and foot; E11.621 Type 2 diabetes mellitus with foot ulcer; E11.622 Type 2 diabetes mellitus with other skin ulcer | CPT/HCPCS: 82947; G0277 ==

== ENCOUNTER 2022-12-24 01:11 | Day surgery (SDC) | payer MEDICARE, OTHER | END 2022-12-24 22:49 | disposition home or self-care (01) | LOC: HBO 01:11 | DX: E11.69 Type 2 diabetes mellitus with other specified complication (principal); M86.671 Other chronic osteomyelitis, right ankle and foot; E11.622 Type 2 diabetes mellitus with other skin ulcer; E11.621 Type 2 diabetes mellitus with foot ulcer; M86.171 Other acute osteomyelitis, right ankle and foot | CPT/HCPCS: 82947; G0277 ==

== ENCOUNTER 2022-12-25 00:22 | Day surgery (SDC) | payer MEDICARE, OTHER | END 2022-12-25 23:05 | disposition home or self-care (01) | LOC: HBO 00:22 | DX: E11.69 Type 2 diabetes mellitus with other specified complication (principal); M86.671 Other chronic osteomyelitis, right ankle and foot; E11.622 Type 2 diabetes mellitus with other skin ulcer; E11.621 Type 2 diabetes mellitus with foot ulcer; M86.171 Other acute osteomyelitis, right ankle and foot | CPT/HCPCS: 82947; G0277 ==

== ENCOUNTER 2022-12-26 02:35 | Day surgery (SDC) | payer MEDICARE, OTHER | END 2022-12-26 23:17 | disposition home or self-care (01) | LOC: HBO 02:35 | DX: E11.69 Type 2 diabetes mellitus with other specified complication (principal); M86.671 Other chronic osteomyelitis, right ankle and foot; E11.621 Type 2 diabetes mellitus with foot ulcer; M86.171 Other acute osteomyelitis, right ankle and foot; E11.622 Type 2 diabetes mellitus with other skin ulcer | CPT/HCPCS: 82947; G0277 ==

== ENCOUNTER 2022-12-26 02:43 | Day surgery (SDC) | payer MEDICARE, OTHER | END 2022-12-26 23:18 | disposition home or self-care (01) | LOC: WOUND 02:43 | DX: E11.621 Type 2 diabetes mellitus with foot ulcer (principal); L97.512 Non-pressure chronic ulcer of other part of right foot with fat layer exposed; M86.671 Other chronic osteomyelitis, right ankle and foot; M86.171 Other acute osteomyelitis, right ankle and foot | CPT/HCPCS: G0463 ==

== ENCOUNTER 2022-12-27 00:38 | Day surgery (SDC) | payer MEDICARE, OTHER | END 2022-12-27 22:40 | disposition home or self-care (01) | LOC: HBO 00:38 | DX: E11.69 Type 2 diabetes mellitus with other specified complication (principal); M86.671 Other chronic osteomyelitis, right ankle and foot; E11.622 Type 2 diabetes mellitus with other skin ulcer; E11.621 Type 2 diabetes mellitus with foot ulcer; M86.171 Other acute osteomyelitis, right ankle and foot | CPT/HCPCS: 82947; G0277 ==

== ENCOUNTER 2023-01-01 00:56 | Day surgery (SDC) | payer MEDICARE, OTHER | END 2023-01-01 22:44 | disposition home or self-care (01) | LOC: HBO 00:56 | DX: E11.69 Type 2 diabetes mellitus with other specified complication (principal); M86.671 Other chronic osteomyelitis, right ankle and foot; M86.171 Other acute osteomyelitis, right ankle and foot; E11.622 Type 2 diabetes mellitus with other skin ulcer; E11.621 Type 2 diabetes mellitus with foot ulcer | CPT/HCPCS: 82947; G0277 ==

== ENCOUNTER 2023-01-02 02:19 | Day surgery (SDC) | payer MEDICARE, OTHER | END 2023-01-02 22:38 | disposition home or self-care (01) | LOC: HBO 02:19 | DX: E11.69 Type 2 diabetes mellitus with other specified complication (principal); M86.671 Other chronic osteomyelitis, right ankle and foot; M86.171 Other acute osteomyelitis, right ankle and foot; E11.622 Type 2 diabetes mellitus with other skin ulcer; E11.621 Type 2 diabetes mellitus with foot ulcer | CPT/HCPCS: 82947; G0277 ==

== ENCOUNTER 2023-01-02 02:23 | Day surgery (SDC) | payer MEDICARE, OTHER | END 2023-01-02 22:38 | disposition home or self-care (01) | LOC: WOUND 02:23 | DX: E11.69 Type 2 diabetes mellitus with other specified complication (principal); M86.671 Other chronic osteomyelitis, right ankle and foot; M86.171 Other acute osteomyelitis, right ankle and foot; E11.622 Type 2 diabetes mellitus with other skin ulcer; E11.621 Type 2 diabetes mellitus with foot ulcer | CPT/HCPCS: G0463 ==

== ENCOUNTER 2023-01-07 00:07 | Day surgery (SDC) | payer MEDICARE, OTHER | END 2023-01-07 23:13 | disposition home or self-care (01) | LOC: HBO 00:07 | DX: E11.69 Type 2 diabetes mellitus with other specified complication (principal); M86.671 Other chronic osteomyelitis, right ankle and foot; E11.622 Type 2 diabetes mellitus with other skin ulcer; E11.621 Type 2 diabetes mellitus with foot ulcer; M86.171 Other acute osteomyelitis, right ankle and foot | CPT/HCPCS: 82947; G0277 ==

== ENCOUNTER 2023-01-08 01:54 | Day surgery (SDC) | payer MEDICARE, OTHER | END 2023-01-08 22:48 | disposition home or self-care (01) | LOC: HBO 01:54 | DX: E11.69 Type 2 diabetes mellitus with other specified complication (principal); M86.671 Other chronic osteomyelitis, right ankle and foot; E11.622 Type 2 diabetes mellitus with other skin ulcer; E11.621 Type 2 diabetes mellitus with foot ulcer; M86.171 Other acute osteomyelitis, right ankle and foot | CPT/HCPCS: 82947; G0277 ==

== ENCOUNTER 2023-01-09 00:47 | Day surgery (SDC) | payer MEDICARE, OTHER | END 2023-01-09 23:03 | disposition home or self-care (01) | LOC: HBO 00:47 | DX: E11.69 Type 2 diabetes mellitus with other specified complication (principal); M86.671 Other chronic osteomyelitis, right ankle and foot; E11.621 Type 2 diabetes mellitus with foot ulcer; M86.171 Other acute osteomyelitis, right ankle and foot | CPT/HCPCS: 82947; G0277 ==

== ENCOUNTER 2023-01-09 00:50 | Day surgery (SDC) | payer MEDICARE, OTHER | END 2023-01-09 23:03 | disposition home or self-care (01) | LOC: WOUND 00:50 | DX: L89.899 Pressure ulcer of other site, unspecified stage (principal); E11.69 Type 2 diabetes mellitus with other specified complication; Z79.4 Long term (current) use of insulin; M86.171 Other acute osteomyelitis, right ankle and foot; M86.671 Other chronic osteomyelitis, right ankle and foot | CPT/HCPCS: G0463 ==

== ENCOUNTER 2023-01-10 02:12 | Day surgery (SDC) | payer MEDICARE, OTHER | END 2023-01-10 22:47 | disposition home or self-care (01) | LOC: HBO 02:12 | DX: E11.69 Type 2 diabetes mellitus with other specified complication (principal); M86.671 Other chronic osteomyelitis, right ankle and foot; E11.622 Type 2 diabetes mellitus with other skin ulcer; E11.621 Type 2 diabetes mellitus with foot ulcer; M86.171 Other acute osteomyelitis, right ankle and foot | CPT/HCPCS: 82947; G0277 ==

== ENCOUNTER 2023-01-11 02:17 | Day surgery (SDC) | payer MEDICARE, OTHER | END 2023-01-11 22:57 | disposition home or self-care (01) | LOC: HBO 02:17 | DX: E11.69 Type 2 diabetes mellitus with other specified complication (principal); M86.671 Other chronic osteomyelitis, right ankle and foot; E11.622 Type 2 diabetes mellitus with other skin ulcer; E11.621 Type 2 diabetes mellitus with foot ulcer; M86.171 Other acute osteomyelitis, right ankle and foot | CPT/HCPCS: 82947; G0277 ==

== ENCOUNTER 2023-01-21 00:19 | Day surgery (SDC) | payer MEDICARE, OTHER | END 2023-01-21 22:50 | disposition home or self-care (01) | LOC: HBO 00:19 | DX: E11.69 Type 2 diabetes mellitus with other specified complication (principal); M86.671 Other chronic osteomyelitis, right ankle and foot; M86.171 Other acute osteomyelitis, right ankle and foot; E11.622 Type 2 diabetes mellitus with other skin ulcer; E11.621 Type 2 diabetes mellitus with foot ulcer | CPT/HCPCS: 82947; G0277 ==

== ENCOUNTER 2023-01-24 01:42 | Day surgery (SDC) | payer MEDICARE, OTHER | END 2023-01-24 22:50 | disposition home or self-care (01) | LOC: HBO 01:42 | DX: E11.69 Type 2 diabetes mellitus with other specified complication (principal); M86.671 Other chronic osteomyelitis, right ankle and foot; E11.622 Type 2 diabetes mellitus with other skin ulcer; E11.621 Type 2 diabetes mellitus with foot ulcer; M86.171 Other acute osteomyelitis, right ankle and foot | CPT/HCPCS: 82947; G0277 ==

== ENCOUNTER 2023-01-25 02:05 | Day surgery (SDC) | payer MEDICARE, OTHER | END 2023-01-25 22:47 | disposition home or self-care (01) | LOC: HBO 02:05 | DX: E11.69 Type 2 diabetes mellitus with other specified complication (principal); M86.671 Other chronic osteomyelitis, right ankle and foot; E11.622 Type 2 diabetes mellitus with other skin ulcer; E11.621 Type 2 diabetes mellitus with foot ulcer; M86.171 Other acute osteomyelitis, right ankle and foot; L89.893 Pressure ulcer of other site, stage 3 | CPT/HCPCS: 82947; G0277; G0463 ==

== ENCOUNTER 2023-01-25 08:00 | Day surgery (SDC) | payer MEDICARE, OTHER | END 2023-01-25 23:59 | disposition home or self-care (01) | LOC: WOUND 08:00 | DX: L89.893 Pressure ulcer of other site, stage 3 (principal); E11.621 Type 2 diabetes mellitus with foot ulcer; E11.69 Type 2 diabetes mellitus with other specified complication; M86.171 Other acute osteomyelitis, right ankle and foot; M86.671 Other chronic osteomyelitis, right ankle and foot | CPT/HCPCS: G0463 ==

== ENCOUNTER 2023-01-28 01:24 | Day surgery (SDC) | payer MEDICARE, OTHER | END 2023-01-28 22:57 | disposition home or self-care (01) | LOC: HBO 01:24 | DX: E11.69 Type 2 diabetes mellitus with other specified complication (principal); M86.171 Other acute osteomyelitis, right ankle and foot; M86.671 Other chronic osteomyelitis, right ankle and foot; E11.622 Type 2 diabetes mellitus with other skin ulcer; E11.621 Type 2 diabetes mellitus with foot ulcer | CPT/HCPCS: 82947; G0277 ==

== ENCOUNTER 2023-01-29 02:39 | Day surgery (SDC) | payer MEDICARE, OTHER | END 2023-01-29 22:56 | disposition home or self-care (01) | LOC: HBO 02:39 | DX: E11.69 Type 2 diabetes mellitus with other specified complication (principal); M86.171 Other acute osteomyelitis, right ankle and foot; M86.671 Other chronic osteomyelitis, right ankle and foot; E11.622 Type 2 diabetes mellitus with other skin ulcer; E11.621 Type 2 diabetes mellitus with foot ulcer; E11.22 Type 2 diabetes mellitus with diabetic chronic kidney disease; N18.9 Chronic kidney disease, unspecified; D50.0 Iron deficiency anemia secondary to blood loss (chronic); D63.8 Anemia in other chronic diseases classified elsewhere | CPT/HCPCS: 36415; 80053; 82728; 82947; 83540; 83550; 85014; 85018; 85025; 85651; 86140; G0277 ==

== ENCOUNTER 2023-01-30 02:33 | Day surgery (SDC) | payer MEDICARE, OTHER | END 2023-01-30 22:50 | disposition home or self-care (01) | LOC: HBO | DX: E11.69 Type 2 diabetes mellitus with other specified complication (principal); E11.622 Type 2 diabetes mellitus with other skin ulcer; E11.621 Type 2 diabetes mellitus with foot ulcer; M86.671 Other chronic osteomyelitis, right ankle and foot; M86.171 Other acute osteomyelitis, right ankle and foot | CPT/HCPCS: 82947; G0277 ==

== ENCOUNTER 2023-02-04 00:43 | Day surgery (SDC) | payer MEDICARE, OTHER | END 2023-02-04 22:39 | disposition home or self-care (01) | LOC: HBO 00:43 | DX: E11.69 Type 2 diabetes mellitus with other specified complication (principal); M86.171 Other acute osteomyelitis, right ankle and foot; M86.671 Other chronic osteomyelitis, right ankle and foot; E11.622 Type 2 diabetes mellitus with other skin ulcer; E11.621 Type 2 diabetes mellitus with foot ulcer | CPT/HCPCS: 82947; G0463 ==

== ENCOUNTER 2023-02-06 01:16 | Day surgery (SDC) | payer MEDICARE, OTHER | END 2023-02-06 23:02 | disposition home or self-care (01) | LOC: WOUND | DX: E11.621 Type 2 diabetes mellitus with foot ulcer (principal); E11.69 Type 2 diabetes mellitus with other specified complication; M86.671 Other chronic osteomyelitis, right ankle and foot; E11.622 Type 2 diabetes mellitus with other skin ulcer; M86.171 Other acute osteomyelitis, right ankle and foot | CPT/HCPCS: 82947; G0277; G0463 ==

== ENCOUNTER 2023-02-07 01:00 | Day surgery (SDC) | payer MEDICARE, OTHER | END 2023-02-07 22:43 | disposition home or self-care (01) | LOC: HBO | DX: M86.171 Other acute osteomyelitis, right ankle and foot (principal); M86.671 Other chronic osteomyelitis, right ankle and foot; E11.622 Type 2 diabetes mellitus with other skin ulcer; E11.621 Type 2 diabetes mellitus with foot ulcer | CPT/HCPCS: 82947; G0277 ==

== ENCOUNTER 2023-02-08 00:38 | Day surgery (SDC) | payer MEDICARE, OTHER | END 2023-02-08 22:55 | disposition home or self-care (01) | LOC: HBO | DX: M86.671 Other chronic osteomyelitis, right ankle and foot (principal); E11.622 Type 2 diabetes mellitus with other skin ulcer; E11.621 Type 2 diabetes mellitus with foot ulcer | CPT/HCPCS: 82947; G0277 ==

== ENCOUNTER 2023-02-11 00:11 | Day surgery (SDC) | payer MEDICARE, OTHER | END 2023-02-11 22:57 | disposition home or self-care (01) | LOC: HBO 00:11 | DX: M86.671 Other chronic osteomyelitis, right ankle and foot (principal); E11.622 Type 2 diabetes mellitus with other skin ulcer; E11.621 Type 2 diabetes mellitus with foot ulcer | CPT/HCPCS: 82947; G0277 ==

== ENCOUNTER 2023-02-12 02:10 | Day surgery (SDC) | payer MEDICARE, OTHER | END 2023-02-12 22:43 | disposition home or self-care (01) | LOC: HBO 02:10 | DX: E11.69 Type 2 diabetes mellitus with other specified complication (principal); M86.671 Other chronic osteomyelitis, right ankle and foot; E11.622 Type 2 diabetes mellitus with other skin ulcer; E11.621 Type 2 diabetes mellitus with foot ulcer | CPT/HCPCS: 82947; G0277 ==

== ENCOUNTER 2023-02-13 02:15 | Day surgery (SDC) | payer MEDICARE, OTHER | END 2023-02-13 23:30 | disposition home or self-care (01) | LOC: HBO 02:15 | DX: E11.69 Type 2 diabetes mellitus with other specified complication (principal); M86.671 Other chronic osteomyelitis, right ankle and foot; E11.622 Type 2 diabetes mellitus with other skin ulcer; E11.621 Type 2 diabetes mellitus with foot ulcer; L97.519 Non-pressure chronic ulcer of other part of right foot with unspecified severity | CPT/HCPCS: 36415; 82947; 85651; 86140; G0277 ==

== ENCOUNTER 2023-02-14 02:32 | Day surgery (SDC) | payer MEDICARE, OTHER | END 2023-02-14 23:20 | disposition home or self-care (01) | LOC: HBO 02:32 | DX: E11.69 Type 2 diabetes mellitus with other specified complication (principal); M86.171 Other acute osteomyelitis, right ankle and foot; M86.671 Other chronic osteomyelitis, right ankle and foot; E11.622 Type 2 diabetes mellitus with other skin ulcer; E11.621 Type 2 diabetes mellitus with foot ulcer; L97.519 Non-pressure chronic ulcer of other part of right foot with unspecified severity | CPT/HCPCS: 82947; G0277; G0463 ==

== ENCOUNTER 2023-02-14 02:42 | Day surgery (SDC) | payer MEDICARE, OTHER | END 2023-02-14 23:21 | disposition home or self-care (01) | LOC: WOUND 02:42 | DX: E11.621 Type 2 diabetes mellitus with foot ulcer (principal); L97.519 Non-pressure chronic ulcer of other part of right foot with unspecified severity; M86.671 Other chronic osteomyelitis, right ankle and foot; E11.622 Type 2 diabetes mellitus with other skin ulcer | CPT/HCPCS: 82947; G0463 ==

== ENCOUNTER 2023-02-15 03:25 | Day surgery (SDC) | payer MEDICARE, OTHER | END 2023-02-15 22:40 | disposition home or self-care (01) | LOC: HBO 03:25 | DX: E11.69 Type 2 diabetes mellitus with other specified complication (principal); M86.171 Other acute osteomyelitis, right ankle and foot; M86.671 Other chronic osteomyelitis, right ankle and foot; E11.622 Type 2 diabetes mellitus with other skin ulcer; E11.621 Type 2 diabetes mellitus with foot ulcer | CPT/HCPCS: 82947; G0277 ==

== ENCOUNTER 2023-02-18 08:00 | Day surgery (SDC) | payer MEDICARE, OTHER | END 2023-02-18 23:59 | disposition home or self-care (01) | LOC: HBO 08:00 | DX: E11.69 Type 2 diabetes mellitus with other specified complication (principal); M86.671 Other chronic osteomyelitis, right ankle and foot; E11.622 Type 2 diabetes mellitus with other skin ulcer; E11.621 Type 2 diabetes mellitus with foot ulcer; M86.171 Other acute osteomyelitis, right ankle and foot | CPT/HCPCS: 82947; G0277 ==

== ENCOUNTER 2023-02-19 00:33 | Day surgery (SDC) | payer MEDICARE, OTHER | END 2023-02-19 22:43 | disposition home or self-care (01) | LOC: HBO 00:33 | DX: M86.671 Other chronic osteomyelitis, right ankle and foot (principal); E11.622 Type 2 diabetes mellitus with other skin ulcer; E11.621 Type 2 diabetes mellitus with foot ulcer | CPT/HCPCS: 82947; G0277 ==

== ENCOUNTER 2023-02-20 03:07 | Day surgery (SDC) | payer MEDICARE, OTHER | END 2023-02-20 22:41 | disposition home or self-care (01) | LOC: HBO 03:07 | DX: M86.671 Other chronic osteomyelitis, right ankle and foot (principal); E11.622 Type 2 diabetes mellitus with other skin ulcer; E11.621 Type 2 diabetes mellitus with foot ulcer | CPT/HCPCS: 82947; G0277 ==

== ENCOUNTER 2023-02-21 00:30 | Day surgery (SDC) | payer MEDICARE, OTHER | END 2023-02-21 22:55 | disposition home or self-care (01) | LOC: HBO 00:30 | DX: E11.69 Type 2 diabetes mellitus with other specified complication (principal); M86.671 Other chronic osteomyelitis, right ankle and foot; E11.622 Type 2 diabetes mellitus with other skin ulcer; E11.621 Type 2 diabetes mellitus with foot ulcer | CPT/HCPCS: 82947; G0277 ==

== ENCOUNTER 2023-02-25 02:09 | Day surgery (SDC) | payer MEDICARE, OTHER | END 2023-02-25 22:51 | disposition home or self-care (01) | LOC: HBO 02:09 | DX: E11.69 Type 2 diabetes mellitus with other specified complication (principal); M86.171 Other acute osteomyelitis, right ankle and foot; M86.671 Other chronic osteomyelitis, right ankle and foot; E11.622 Type 2 diabetes mellitus with other skin ulcer; E11.621 Type 2 diabetes mellitus with foot ulcer | CPT/HCPCS: 82947; G0277 ==

== ENCOUNTER 2023-02-26 01:55 | Day surgery (SDC) | payer MEDICARE, OTHER | END 2023-02-26 22:56 | disposition home or self-care (01) | LOC: HBO 01:55 | DX: E11.69 Type 2 diabetes mellitus with other specified complication (principal); E11.621 Type 2 diabetes mellitus with foot ulcer; E11.622 Type 2 diabetes mellitus with other skin ulcer; M86.171 Other acute osteomyelitis, right ankle and foot; M86.671 Other chronic osteomyelitis, right ankle and foot; L98.499 Non-pressure chronic ulcer of skin of other sites with unspecified severity; L97.509 Non-pressure chronic ulcer of other part of unspecified foot with unspecified severity | CPT/HCPCS: 82947; G0277 ==

== ENCOUNTER 2023-02-27 05:39 | Day surgery (SDC) | payer MEDICARE, OTHER | END 2023-02-28 23:06 | disposition home or self-care (01) | LOC: HBO 05:39 | DX: E11.69 Type 2 diabetes mellitus with other specified complication (principal); M86.671 Other chronic osteomyelitis, right ankle and foot; E11.622 Type 2 diabetes mellitus with other skin ulcer; E11.621 Type 2 diabetes mellitus with foot ulcer | CPT/HCPCS: 82947; G0277 ==

== ENCOUNTER 2023-02-28 01:29 | Day surgery (SDC) | payer MEDICARE, OTHER | END 2023-02-28 23:07 | disposition home or self-care (01) | LOC: HBO 01:29 | DX: E11.69 Type 2 diabetes mellitus with other specified complication (principal); M86.671 Other chronic osteomyelitis, right ankle and foot; M86.171 Other acute osteomyelitis, right ankle and foot; E11.622 Type 2 diabetes mellitus with other skin ulcer; E11.621 Type 2 diabetes mellitus with foot ulcer; L98.499 Non-pressure chronic ulcer of skin of other sites with unspecified severity; L97.509 Non-pressure chronic ulcer of other part of unspecified foot with unspecified severity | CPT/HCPCS: 82947; G0277 ==

== ENCOUNTER 2023-03-01 00:38 | Day surgery (SDC) | payer MEDICARE, OTHER | END 2023-03-02 22:41 | disposition home or self-care (01) | LOC: HBO 00:38 | DX: E11.69 Type 2 diabetes mellitus with other specified complication (principal); M86.171 Other acute osteomyelitis, right ankle and foot; M86.671 Other chronic osteomyelitis, right ankle and foot; E11.622 Type 2 diabetes mellitus with other skin ulcer; E11.621 Type 2 diabetes mellitus with foot ulcer | CPT/HCPCS: 82947; G0277 ==

== ENCOUNTER 2023-03-05 02:35 | Day surgery (SDC) | payer MEDICARE, OTHER | END 2023-03-05 23:04 | disposition home or self-care (01) | LOC: HBO 02:35 | DX: E11.69 Type 2 diabetes mellitus with other specified complication (principal); M86.671 Other chronic osteomyelitis, right ankle and foot; E11.622 Type 2 diabetes mellitus with other skin ulcer; E11.621 Type 2 diabetes mellitus with foot ulcer; M86.171 Other acute osteomyelitis, right ankle and foot | CPT/HCPCS: 82947; G0277 ==

== ENCOUNTER 2023-03-06 00:21 | Day surgery (SDC) | payer MEDICARE, OTHER | END 2023-03-06 22:54 | disposition home or self-care (01) | LOC: HBO 00:21 | DX: E11.69 Type 2 diabetes mellitus with other specified complication (principal); M86.671 Other chronic osteomyelitis, right ankle and foot; E11.621 Type 2 diabetes mellitus with foot ulcer; E11.622 Type 2 diabetes mellitus with other skin ulcer; L97.519 Non-pressure chronic ulcer of other part of right foot with unspecified severity | CPT/HCPCS: 82947; G0277; G0463 ==

== ENCOUNTER 2023-03-06 00:30 | Day surgery (SDC) | payer MEDICARE, OTHER | END 2023-03-06 23:07 | disposition home or self-care (01) | LOC: WOUND 00:30 | DX: E11.69 Type 2 diabetes mellitus with other specified complication (principal); M86.671 Other chronic osteomyelitis, right ankle and foot; E11.621 Type 2 diabetes mellitus with foot ulcer; L97.519 Non-pressure chronic ulcer of other part of right foot with unspecified severity; E11.622 Type 2 diabetes mellitus with other skin ulcer | CPT/HCPCS: G0463 ==

== ENCOUNTER 2023-03-07 03:46 | Day surgery (SDC) | payer MEDICARE, OTHER | END 2023-03-07 22:41 | disposition home or self-care (01) | LOC: HBO 03:46 | DX: E11.69 Type 2 diabetes mellitus with other specified complication (principal); M86.671 Other chronic osteomyelitis, right ankle and foot; E11.621 Type 2 diabetes mellitus with foot ulcer; E11.622 Type 2 diabetes mellitus with other skin ulcer | CPT/HCPCS: 82947; G0277 ==

== ENCOUNTER 2023-03-08 01:00 | Day surgery (SDC) | payer MEDICARE, OTHER | END 2023-03-10 22:40 | disposition home or self-care (01) | LOC: HBO | DX: E11.69 Type 2 diabetes mellitus with other specified complication (principal); M86.671 Other chronic osteomyelitis, right ankle and foot; E11.621 Type 2 diabetes mellitus with foot ulcer; E11.622 Type 2 diabetes mellitus with other skin ulcer | CPT/HCPCS: 82947; G0277 ==

== ENCOUNTER 2023-03-11 01:10 | Day surgery (SDC) | payer MEDICARE, OTHER | END 2023-03-11 22:55 | disposition home or self-care (01) | LOC: HBO 01:10 | DX: E11.69 Type 2 diabetes mellitus with other specified complication (principal); M86.671 Other chronic osteomyelitis, right ankle and foot; E11.621 Type 2 diabetes mellitus with foot ulcer; E11.622 Type 2 diabetes mellitus with other skin ulcer; M86.171 Other acute osteomyelitis, right ankle and foot | CPT/HCPCS: 82947; G0277 ==

== ENCOUNTER 2023-03-12 01:46 | Day surgery (SDC) | payer MEDICARE, OTHER | END 2023-03-12 22:47 | disposition home or self-care (01) | LOC: HBO 01:46 | DX: E11.69 Type 2 diabetes mellitus with other specified complication (principal); M86.171 Other acute osteomyelitis, right ankle and foot; E11.621 Type 2 diabetes mellitus with foot ulcer; E11.622 Type 2 diabetes mellitus with other skin ulcer | CPT/HCPCS: 82947; G0277 ==

== ENCOUNTER → 2023-03-13 | Outpatient (CLI) | payer MEDICARE, OTHER | LOC: PLD 15:13 → LAB 15:13 → LAB SHORT 15:13 | DX: D48.5 Neoplasm of uncertain behavior of skin (principal) | CPT/HCPCS: 88305 ==

== ENCOUNTER 2023-03-14 02:37 | Day surgery (SDC) | payer MEDICARE, OTHER | END 2023-03-14 23:33 | disposition home or self-care (01) | LOC: HBO 02:37 | PROC: 5A05121 Extracorporeal Hyperbaric Oxygenation, Intermittent (ICD-10-PCS; principal; 2023-03-14) | DX: E11.69 Type 2 diabetes mellitus with other specified complication (principal); M86.171 Other acute osteomyelitis, right ankle and foot; M86.671 Other chronic osteomyelitis, right ankle and foot | CPT/HCPCS: 82947; G0277 ==

== ENCOUNTER 2023-03-15 02:44 | Day surgery (SDC) | payer MEDICARE, OTHER | END 2023-03-17 22:52 | disposition home or self-care (01) | LOC: HBO 02:44 | DX: E11.69 Type 2 diabetes mellitus with other specified complication (principal); M86.671 Other chronic osteomyelitis, right ankle and foot; E11.621 Type 2 diabetes mellitus with foot ulcer; E11.622 Type 2 diabetes mellitus with other skin ulcer | CPT/HCPCS: 82947; G0277 ==

== ENCOUNTER 2023-03-20 03:39 | Day surgery (SDC) | payer MEDICARE, OTHER | END 2023-03-20 22:58 | disposition home or self-care (01) | LOC: HBO 03:39 | DX: E11.69 Type 2 diabetes mellitus with other specified complication (principal); M86.671 Other chronic osteomyelitis, right ankle and foot; E11.621 Type 2 diabetes mellitus with foot ulcer; E11.622 Type 2 diabetes mellitus with other skin ulcer | CPT/HCPCS: 82947; G0277 ==

== ENCOUNTER 2023-05-31 00:31 | Day surgery (SDC) | payer MEDICARE, OTHER | END 2023-05-31 22:53 | disposition home or self-care (01) | LOC: WOUND 00:31 | DX: E11.622 Type 2 diabetes mellitus with other skin ulcer (principal); L97.822 Non-pressure chronic ulcer of other part of left lower leg with fat layer exposed; I87.2 Venous insufficiency (chronic) (peripheral); Z79.4 Long term (current) use of insulin; L03.116 Cellulitis of left lower limb; I87.312 Chronic venous hypertension (idiopathic) with ulcer of left lower extremity | CPT/HCPCS: A9270; G0463 ==

== ENCOUNTER 2023-06-03 08:56 | Day surgery (SDC) | payer MEDICARE, OTHER | END 2023-06-03 22:57 | disposition home or self-care (01) | LOC: WOUND 08:56 | DX: L03.116 Cellulitis of left lower limb (principal); E11.622 Type 2 diabetes mellitus with other skin ulcer; I87.2 Venous insufficiency (chronic) (peripheral); I87.312 Chronic venous hypertension (idiopathic) with ulcer of left lower extremity | CPT/HCPCS: G0463 ==

== ENCOUNTER 2023-06-07 02:22 | Day surgery (SDC) | payer MEDICARE, OTHER | END 2023-06-07 23:08 | disposition home or self-care (01) | LOC: WOUND 02:22 | DX: L03.116 Cellulitis of left lower limb (principal); E11.622 Type 2 diabetes mellitus with other skin ulcer; I87.2 Venous insufficiency (chronic) (peripheral); I87.312 Chronic venous hypertension (idiopathic) with ulcer of left lower extremity | CPT/HCPCS: 87070; 87077; 87186; 87205; G0463 ==

== ENCOUNTER 2023-06-10 00:14 | Day surgery (SDC) | payer MEDICARE, OTHER | END 2023-06-10 22:46 | disposition home or self-care (01) | LOC: WOUND 00:14 | DX: E11.622 Type 2 diabetes mellitus with other skin ulcer (principal); L97.822 Non-pressure chronic ulcer of other part of left lower leg with fat layer exposed; L03.116 Cellulitis of left lower limb; I87.2 Venous insufficiency (chronic) (peripheral); I87.312 Chronic venous hypertension (idiopathic) with ulcer of left lower extremity; I12.9 Hypertensive chronic kidney disease with stage 1 through stage 4 chronic kidney disease, or unspecified chronic kidney disease; N18.32 Chronic kidney disease, stage 3b; E11.22 Type 2 diabetes mellitus with diabetic chronic kidney disease | CPT/HCPCS: 36415; 80053; 80069; 83036; 83970; 84100; 85025 ==

== ENCOUNTER 2023-06-17 01:39 | Day surgery (SDC) | payer MEDICARE, OTHER | END 2023-06-17 22:54 | disposition home or self-care (01) | LOC: WOUND 01:39 | DX: E11.622 Type 2 diabetes mellitus with other skin ulcer (principal); L97.822 Non-pressure chronic ulcer of other part of left lower leg with fat layer exposed; I87.312 Chronic venous hypertension (idiopathic) with ulcer of left lower extremity; L03.116 Cellulitis of left lower limb; I87.2 Venous insufficiency (chronic) (peripheral) | CPT/HCPCS: G0463 ==

== ENCOUNTER → 2023-06-27 | Outpatient (CLI) | payer MEDICARE | END | disposition home or self-care (01) | LOC: PLD 15:50 → LAB SHORT 15:50 | DX: L72.9 Follicular cyst of the skin and subcutaneous tissue, unspecified (principal) | CPT/HCPCS: 88304; 88305 ==

== ENCOUNTER 2023-07-01 01:13 | Day surgery (SDC) | payer MEDICARE, OTHER | END 2023-07-01 22:48 | disposition home or self-care (01) | LOC: WOUND 01:13 | DX: E11.622 Type 2 diabetes mellitus with other skin ulcer (principal); L03.116 Cellulitis of left lower limb; I87.2 Venous insufficiency (chronic) (peripheral); I87.312 Chronic venous hypertension (idiopathic) with ulcer of left lower extremity | CPT/HCPCS: G0463 ==

== ENCOUNTER → 2023-08-12 | Outpatient (CLI) | payer MEDICARE | END | disposition home or self-care (01) | LOC: LAB SHORT 07:13 → PLD 07:13 | DX: L72.11 Pilar cyst (principal); L94.2 Calcinosis cutis; D48.5 Neoplasm of uncertain behavior of skin | CPT/HCPCS: 88304 ==

== ENCOUNTER → 2023-10-28 | Outpatient (CLI) | payer MEDICARE ==
[2023-10-28 13:00] LABS: Source, Urine Voided
[2023-10-28 16:57] LABS: Bilirubin, Urine Neg (Neg); Blood, Urine Neg (Neg); Glucose Qualitative, Urine 3+ (Neg); Ketones, Urine Neg (Neg); Leukocyte Esterase, Urine Neg (Neg); Nitrite, Urine Neg (Neg); Protein, Urine Neg (Neg); Urobilinogen, Urine NORM (Normal)
[2023-10-28 17:12] LABS: Appearance, Urine Clear (Clear); Color, Urine Pale Yellow (P-Yellow)
[2023-10-28 18:40] LABS: Creatinine, Urine Random 15.1 mg/dL (27.00-270.00); Protein, Urine Random 6.7 mg/dL (0.0-11.9); Protein/Creat Ratio, Ur Random 0.4
== END | disposition home or self-care (01) ==
LOC: LAB 11:15 → LAB SHORT 11:15
PROVIDERS: Hospitalist
DX: N18.32 Chronic kidney disease, stage 3b (principal)
CPT/HCPCS: 81003; 82570; 84156

== ENCOUNTER → 2024-01-30 | Outpatient (CLI) | payer MEDICARE, OTHER | END | disposition home or self-care (01) | LOC: LAB SHORT 15:02 → LAB 15:02 | DX: D04.4 Carcinoma in situ of skin of scalp and neck (principal); L72.11 Pilar cyst | CPT/HCPCS: 88305 ==

== ENCOUNTER → 2024-01-30 | Outpatient (CLI) | payer MEDICARE, OTHER ==
[2024-01-30 12:12] LABS: Appearance, Urine Hazy (Clear); Bilirubin, Urine Neg (Neg); Blood, Urine Neg (Neg); Color, Urine Yellow (P-Yellow); Glucose Qualitative, Urine Neg (Neg); Ketones, Urine Neg (Neg); Leukocyte Esterase, Urine 2+ (Neg); Nitrite, Urine Neg (Neg); Protein, Urine 2+ (Neg); Urobilinogen, Urine NORM (Normal)
[2024-01-30 12:20] LABS: Amorphous Light (0-Heavy); Bacteria Many /hpf; Red Blood Cells, Urine 0-2 /hpf (0-2); Squamous Epithelial Cells Rare /hpf (Few)
[2024-01-30 21:10] LABS: Creatinine, Urine Random 48.6 mg/dL (27.00-270.00); Protein, Urine Random 41.6 mg/dL (0.0-11.9); Protein/Creat Ratio, Ur Random 0.9
[2024-01-30 21:14] LABS: Microalb/Creat Ratio UR, Rand 353.909 mg/g (0.000-30.000)
== END | disposition home or self-care (01) ==
LOC: LAB SHORT 11:19 → LAB 11:19
PROVIDERS: Hospitalist
DX: I12.9 Hypertensive chronic kidney disease with stage 1 through stage 4 chronic kidney disease, or unspecified chronic kidney disease (principal); N18.32 Chronic kidney disease, stage 3b
CPT/HCPCS: 81001; 82043; 82570; 84156; 87086

== ENCOUNTER → 2024-08-28 | Outpatient (CLI) | payer MEDICARE, OTHER ==
[2024-08-28 09:02] LABS: Source, Urine Voided
[2024-08-28 10:16] LABS: Appearance, Urine Clear (Clear); Bilirubin, Urine Neg (Neg); Blood, Urine Neg (Neg); Color, Urine Yellow (P-Yellow); Glucose Qualitative, Urine 1+ (Neg); Ketones, Urine Neg (Neg); Leukocyte Esterase, Urine 1+ (Neg); Nitrite, Urine Neg (Neg); Protein, Urine 1+ (Neg); Specific Gravity, Urine 1.015 (1.003-1.022); Urobilinogen, Urine NORM (Normal)
[2024-08-28 10:36] LABS: Creatinine, Urine Random 66.2 mg/dL (27.00-270.00)
[2024-08-28 10:38] LABS: Microalb/Creat Ratio UR, Rand 42.9 mg/g (0.000-30.000); Microalbumin, Random Urine 28.4 mg/L (0.000-20.000)
[2024-08-28 11:21] LABS: Bacteria Rare /hpf; Red Blood Cells, Urine 0-2 /hpf (0-2); Squamous Epithelial Cells Few /hpf (Few)
== END ==
LOC: LAB 07:55 → LAB SHORT 07:55
PROVIDERS: Hospitalist
DX: I12.9 Hypertensive chronic kidney disease with stage 1 through stage 4 chronic kidney disease, or unspecified chronic kidney disease (principal); N18.32 Chronic kidney disease, stage 3b
CPT/HCPCS: 81001; 82043; 82570; 87086

== ENCOUNTER → 2024-10-13 | Outpatient (CLI) | payer MEDICARE, OTHER ==
[2024-10-13 11:09] LABS: Appearance, Urine Clear (Clear); Bilirubin, Urine Neg (Neg); Blood, Urine Neg (Neg); Color, Urine Yellow (P-Yellow); Glucose Qualitative, Urine 1+ (Neg); Ketones, Urine Neg (Neg); Leukocyte Esterase, Urine 1+ (Neg); Nitrite, Urine Neg (Neg); Protein, Urine 2+ (Neg); Urobilinogen, Urine NORM (Normal)
[2024-10-13 11:32] LABS: Squamous Epithelial Cells Mod /hpf (Few)
[2024-10-13 11:33] LABS: Hyaline Casts 0-2 /lpf (0-2)
[2024-10-13 11:35] LABS: Amorphous Light (0-Heavy); Bacteria Rare /hpf; Red Blood Cells, Urine 0-2 /hpf (0-2)
[2024-10-13 11:36] LABS: Transitional Epithelial Cells Rare /hpf (0-Rare)
[2024-10-18 19:16] LABS: ALBUMIN %,URINE 85.2 %; ALPHA-2 %,URINE 5.3 %; BETA GLOBULIN %,URINE 5.5 %; HOURS COLLECTED Random hr; TOTAL VOLUME Random mL
== END ==
LOC: LAB SHORT 10:39 → LAB 10:39
PROVIDERS: Hospitalist
DX: E11.22 Type 2 diabetes mellitus with diabetic chronic kidney disease (principal); N18.32 Chronic kidney disease, stage 3b
CPT/HCPCS: 81001; 84156; 84166; 86335; 87086

== ENCOUNTER → 2025-08-06 | Outpatient (CLI) | payer MEDICARE, OTHER ==
[2025-08-06 15:21] LABS: Creatinine, Urine Random 35.1 mg/dL (27.00-270.00); Microalb/Creat Ratio UR, Rand 76.923 mg/g (0.000-30.000); Microalbumin, Random Urine 27.0 mg/L (0.000-20.000)
== END ==
LOC: LAB 14:04 → LAB SHORT 14:04
PROVIDERS: Hospitalist
DX: E11.22 Type 2 diabetes mellitus with diabetic chronic kidney disease (principal); I12.9 Hypertensive chronic kidney disease with stage 1 through stage 4 chronic kidney disease, or unspecified chronic kidney disease; N18.32 Chronic kidney disease, stage 3b
CPT/HCPCS: 82043; 82570